=== PATIENT | female | born 1975 | race Two or more races ===

== ENCOUNTER 2020-10-09 17:13 | Outpatient (REF) | payer OTHER, SELFPAY ==
[2020-10-09 18:22] LABS: Glucose Urine UA NEG (NEG); Leukocyte Esterase Urine NEG (NEG); Nitrite Urine NEG (NEG); PH 5.5 (5.0-8.0); Specific Gravity - Urine >= 1.030 (1.005-1.025); Urine Blood 1+ (NEG); Urine Ketones NEG (NEG); Urine Protein NEG (NEG-TRACE)
[2020-10-09 18:25] LABS: Color Urine YELLOW
[2020-10-09 18:26] LABS: Appearance Urine CLEAR
[2020-10-09 18:32] LABS: Bacteria Urine 1+ /LPF; RBC Urine 0 /HPF (0); Squamous Epithelial Cell Urine TRACE /LPF; WBC Urine 0-2 /HPF (0-4)
== END 2020-10-09 17:14 | disposition home or self-care (01) ==
LOC: HO.LAB 17:13
PROVIDERS: PCP Family Medicine; Visit Provider Family Medicine
DX: M54.9 Dorsalgia, unspecified (principal)
CPT/HCPCS: 81001; 87086; 87088; 87186

== ENCOUNTER 2021-01-18 12:35 | Emergency (ER) | payer OTHER, SELFPAY ==
--- NOTE | ~2021-01-18 | US_ITS ---
EXAMINATION: US PELVIS LIMITED (BLADDER) CLINICAL INFORMATION: Gross hematuria. COMPARISON: None TECHNIQUE: Real-time imaging of the bladder. FINDINGS: BLADDER: Well distended and normal. Some echogenic debris is present in the bladder. Bilateral ureteral jets are demonstrated. Prevoid bladder volume is 170 mL. Postvoid bladder volume is 2 mL. No bladder calculi or masses were seen. The prostate appeared enlarged but was not fully evaluated. US/US bladder IMPRESSION: The bladder contains some echogenic debris. No stones or masses..
[2021-01-18 17:12] VITALS: BP 122/74; PULSE 82; RESP 20; TEMP 37.2; O2SAT 99
--- NOTE | 2021-01-18 17:58 | ED_ITS ---
HPI - Abdominal Pain General Chief Complaint: Vaginal Bleeding Stated Complaint: Vaginal Bleeding Time Seen by Provider: 01/18/21 17:40 Source: patient Mode of arrival: ambulatory Limitations: no limitations History of Present Illness HPI narrative: Patient is a 45-year-old female with no significant past medical history who presents complaining of blood in her urine x 1 day. She states her doctor has been treating her on off for the past few months for urinary tract infections but she states she does not think she actually had any infections, she tested negative for the infections with they treated her based on her symptoms. Her symptoms usually improve but they were always come back after she was done with treatment. She states her symptoms were increased frequency in urination, increased an urge to urinate. She denies any fevers, other abdominal pain or changes in her bowels. She does state that recently, she has noticed blood in her urine and this morning when she got up it was bright red blood that she could see coming out of her urethra. She states she does have hemorrhoids but she is positive it was not coming from that area. Related Data Previous Rx's Medication Instructions Recorded cefdinir 300 mg PO Q12H 7 Days #14 cap 01/18/21 Allergies Allergy/AdvReac Type Severity Reaction Status Date / Time No Known Allergies Allergy Verified 01/18/21 17:49 Review of Systems Review of Systems Yes all other systems are reviewed and are negative Physical Exam Vital Signs: Vital Signs: Last Vital Signs Temp 98.8 F 01/18/21 20:00 Pulse 67 01/18/21 20:00 Resp 18 01/18/21 20:00 BP 139/82 01/18/21 20:00 Pulse Ox 98 01/18/21 20:00 Body Mass Index 24.3 Const: General: cooperative, healthy appearing, comfortable, no acute distress and well developed Orientation/consciousness: patient oriented x3 Limitations: no limitations HENMT: Head: Yes normal to inspection Eyes: General: appearance normal, both eyes and all related structures Neck: Neck: Yes normal visual inspection and Yes full ROM Resp: Effort & Inspection: normal respiratory effort and able to speak in complete sentences Auscultation: clear to auscultation bilaterally Cardio: Rate: regular rate Rhythm: regular rhythm Heart sounds: normal S1 and S2 GI: Inspection: Yes normal to inspection Palpation (GI): Soft to palpation and Tenderness to palpation present (GI) suprapubicly (Central) Skin: General skin exam: no rashes or lesions noted Neuro: General: patient oriented x3 Extrem: General: Yes normal to inspection Course Course Course Narrative: Patient is a 45-year-old female with no significant past medical history who presents complaining of blood in her urine x 1 day. VSS, physical exam unremarkable except for TTP to suprapubic area. Her doctor, Dr. Wilson did come into the emergency department this morning to tell us about this patient, he is requesting a bladder ultrasound. Will get labs, UA and bladder ultrasound. Reevaluation(s) Reevaluation #1: Patient extremely upset that we gave her fluids to fill up her bladder to get a good picture on the ultrasound and she has to urinate but u ltrasound will not be ready for her for another 10 minutes so she has to hold her urine and it is uncomfortable. I apologized for the missed timing but stressed it is important she tried to hold her bladder so we can get a better picture. Advised if she needs to urinate, that would be fine to, we would just have to wait for her to fill of her bladder again and do the ultrasound later. Time: 19:08 Reevaluation #2: Patient just called to ultrasound Time: 19:10 MDM - Abdominal Pain Medical Records Attestation: I reviewed the patient's medical records. Lab Data Attestation: I reviewed the patient's lab results. Result diagrams: 01/18/21 18:21 01/18/21 18:21 Labs: Lab Results 01/18/21 01/18/21 01/18/21 Range/Units 18:21 18:21 19:38 WBC 8.3 (4.8-10.8) X10*3/uL RBC 4.31 (4.20-5.50) X10*6/uL Hgb 11.4 L (12.0-16.0) g/dl Hct 35.7 L (37-47) % MCV 82.8 (80-98) fL MCH 26.5 L (27.0-33.0) pg MCHC 31.9 (31.0-35.0) g/dl RDW 14.6 (11.0-16.0) % Plt Count 296 (160-400) X10*3/uL MPV 10.8 (9.4-12.3) fL Immature Gran % (Auto) 0.2 (0.0-0.4) % Neut % (Auto) 48.6 (45-73) % Lymph % (Auto) 33.1 (20-40) % [place] % (Auto) 9.5 (2-11) % Eos % (Auto) 7.9 H (0-4) % Baso % (Auto) 0.7 (0-2) % Lymph # (Auto) 2.8 (1.2-4.9) X10*3/uL [place] # (Auto) 0.8 (0.1-1.2) X10*3/uL Eos # (Auto) 0.7 H (0.0-0.4) X10*3/uL Baso # (Auto) 0.1 (0.0-0.2) X10*3/uL Abs Immat Gran (auto) 0.02 (0.00-0.03) X10*3/uL Absolute Neuts (auto) 4.0 (2.0-8.3) X10*3/uL Absolute Nucleated RBC 0.000 (0.0-0.012) X10*3/uL Nucleated RBC % (auto) 0.0 (0.0-0.2) /100WBC Sodium 142 (135-145) mmol/L Potassium 4.1 (3.3-5.1) mmol/L Chloride 110 H (96-108) mmol/L Carbon Dioxide 27 (22-29) mmol/L Anion Gap 9 L (12-20) BUN 7 L (9-16) mg/dL Creatinine 0.74 (0.5-1.4) mg/dL Estim Creat Clear Calc 95.8 Estimated GFR > 60 Random Glucose 103 (60-115) mg/dL Calcium 11.4 H (8.4-10.2) mg/dL Urine Color YELLOW Urine Appearance CLEAR Urine pH 5.5 (5.0-8.0) Ur Specific [place] >= 1.030 H (1.005-1.025) Urine Protein NEG (NEG-TRACE) MG/DL Urine Glucose (UA) NEG (NEG) MG/DL Urine Ketones NEG (NEG) MG/DL Urine Blood TRACE (NEG) Urine Nitrite NEG (NEG) Ur Leukocyte Esterase NEG (NEG) Urine RBC 1-4 (0) /HPF Urine WBC 1-4 (0-4) /HPF Ur Squamous Epith Cells TRACE /LPF Calcium Oxalate Crystal 1+ /LPF Urine Bacteria NONE /LPF Imaging Data bladder US: Attestation: I personally reviewed and interpreted this imaging study as follows: Radiologist's impression: [address] [id number] ReportSigned Patient: Elsie Norton#: [id number]: 1975Acct:[id number]/Sex: 45 / FADM Date: 01/18/21Loc: HO.EDAttending Dr: Ordering Physician: Haven Omer PA-C Date of Service: 01/18/21 Procedure(s): US bladder Accession Number(s): [id number] cc: Haven Omer PA-C~ EXAMINATION: US PELVIS LIMITED (BLADDER) CLINICAL INFORMATION: Gross hematuria. COMPARISON: None TECHNIQUE: Real-time imaging of the bladder. FINDINGS: BLADDER: Well distended and normal. Some echogenic debris is present in the bladder. Bilateral ureteral jets are demonstrated. Prevoid bladder volume is 170 mL. Postvoid bladder volume is 2 mL. No bladder calculi or masses were seen. The prostate appeared enlarged but was not fully evaluated. US/US bladder IMPRESSION: The bladder contains some echogenic debris. No stones or masses.. Dictated By:SMITH FLORES MDSigned By:<Electronically signed by SMITH FLORES MD in OV>01/18/212029 DD/ 48TD/TT: Curriculum Director: Discharge Plan Discharge Clinical Impression: UTI (urinary tract infection) Qualifiers: Urinary tract infection type: acute cystitis Hematuria presence: with hematuria Qualified Code(s): N30.01 - Acute cystitis with hematuria Patient Disposition: Home, Self-Care Instructions: Urinary Tract Infection in Women (ED) Prescriptions: New cefdinir 300 mg capsule 300 mg PO Q12H 7 Days Qty: 14 RF: 0 Stand Alone Forms: Work/School Release PMFSH Past Medical History Medical History (Updated 01/18/21 @ 20:11 by Haven Omer PA-C) No known health problems Social History Social History Alcohol intake: never Patient Tobacco Use Status: Never used Tobacco Use of substances other than those prescribed or required for medical reasons: No Advance Directives: Yes Advance Directives Information Provided: Yes Advance Directives on File: No Patient : No
[2021-01-18 18:11] VITALS: BP 127/77; PULSE 65; RESP 16; TEMP 37; O2SAT 100; BMI 24.3
[2021-01-18 18:25] LABS: MANUAL DIFF FLAG NO
[2021-01-18 18:30] LABS: Basophils Absolute Auto 0.1 X10*3/uL (0.0-0.2); Basophils Percent Auto 0.7 % (0-2); Eosinophils Absolute Auto 0.7 X10*3/uL (0.0-0.4); Eosinophils Percent Auto 7.9 % (0-4); Hematocrit 35.7 % (37-47); Hemoglobin 11.4 g/dl (12.0-16.0); Imm Gran Abs Auto 0.02 X10*3/uL (0.00-0.03); Imm Gran Pct Auto 0.2 % (0.0-0.4); Lymphocytes Absolute Auto 2.8 X10*3/uL (1.2-4.9); Lymphocytes Percent Auto 33.1 % (20-40); Mean Corpuscular HGB Conc 31.9 g/dl (31.0-35.0); Mean Corpuscular Hemoglobin 26.5 pg (27.0-33.0); Mean Corpuscular Volume 82.8 fL (80-98); Mean Platelet Volume 10.8 fL (9.4-12.3); Monocytes Absolute Auto 0.8 X10*3/uL (0.1-1.2); Monocytes Percent Auto 9.5 % (2-11); Neutrophils Percent Auto 48.6 % (45-73); Platelet Count 296 X10*3/uL (160-400); Red Blood Count 4.31 X10*6/uL (4.20-5.50); Red Cell Distribution Width 14.6 % (11.0-16.0); White Blood Count 8.3 X10*3/uL (4.8-10.8)
[2021-01-18 18:54] LABS: Anion Gap 9 (12-20); Blood Urea Nitrogen 7 mg/dL (9-16); Carbon Dioxide 27 mmol/L (22-29); Chloride 110 mmol/L (96-108); Creatinine Clr Calc Pharmacy 95.8; Estimated Glomerular Filt Rate > 60; Glucose Random 103 mg/dL (60-115); Potassium 4.1 mmol/L (3.3-5.1); Sodium 142 mmol/L (135-145)
[2021-01-18 19:00] LABS: Calcium 11.4 mg/dL (8.4-10.2)
[2021-01-18 19:55] LABS: Glucose Urine UA NEG (NEG); Leukocyte Esterase Urine NEG (NEG); Nitrite Urine NEG (NEG); PH 5.5 (5.0-8.0); Specific Gravity - Urine >= 1.030 (1.005-1.025); Urine Blood TRACE (NEG); Urine Ketones NEG (NEG); Urine Protein NEG (NEG-TRACE)
[2021-01-18 19:58] LABS: Appearance Urine CLEAR; Color Urine YELLOW
[2021-01-18 20:00] VITALS: BP 139/82; PULSE 67; RESP 18; TEMP 37.1; O2SAT 98
[2021-01-18 20:24] LABS: Squamous Epithelial Cell Urine TRACE /LPF
[2021-01-18 20:25] LABS: Calcium Oxalate Crystals Urine 1+ /LPF
== END 2021-01-18 20:47 | disposition home or self-care (01) ==
PROVIDERS: Physician Assistant; Emergency Provider Emergency Medicine; PCP Family Medicine
DX: N30.01 Acute cystitis with hematuria (principal)
CPT/HCPCS: 36415; 76857; 80048; 81001; 85025; 99284

== ENCOUNTER → 2021-02-19 15:11 | Outpatient (BNVA) | payer OTHER, SELFPAY | PROVIDERS: PCP Family Medicine | DX: N30.01 Acute cystitis with hematuria (principal) | CPT/HCPCS: 99202 ==

== ENCOUNTER 2021-02-23 09:01 | Outpatient (REF) | payer OTHER, SELFPAY ==
[2021-02-23 09:36] LABS: MANUAL DIFF FLAG NO
[2021-02-23 09:42] LABS: Basophils Percent Auto 0.6 % (0-2); Eosinophils Absolute Auto 0.4 X10*3/uL (0.0-0.4); Hematocrit 35.1 % (37-47); Hemoglobin 10.9 g/dl (12.0-16.0); Imm Gran Abs Auto 0.02 X10*3/uL (0.00-0.03); Imm Gran Pct Auto 0.3 % (0.0-0.4); Lymphocytes Absolute Auto 2.2 X10*3/uL (1.2-4.9); Lymphocytes Percent Auto 33.5 % (20-40); Mean Corpuscular HGB Conc 31.1 g/dl (31.0-35.0); Mean Corpuscular Hemoglobin 25.6 pg (27.0-33.0); Mean Corpuscular Volume 82.4 fL (80-98); Monocytes Absolute Auto 0.6 X10*3/uL (0.1-1.2); Neutrophils Absolute Auto 3.3 X10*3/uL (2.0-8.3); Neutrophils Percent Auto 50.6 % (45-73); Platelet Count 349 X10*3/uL (160-400); Red Blood Count 4.26 X10*6/uL (4.20-5.50); Red Cell Distribution Width 13.9 % (11.0-16.0); White Blood Count 6.5 X10*3/uL (4.8-10.8)
[2021-02-23 10:25] LABS: T4 Thyroxine 5.7 ug/dL (4.5-12.0); Thyroid Stimulating Hormone 0.44 uIU/mL (0.32-4.0)
[2021-02-23 10:32] LABS: Calcium 11.1 mg/dL (8.4-10.2); Iron 17 mcg/dL (30-160); Percent Iron Saturation 4 % (15-50); Total Iron Binding Capacity 469 mcg/dL (228-428); Unsaturated Iron Binding 452 ug/dL
== END 2021-02-23 09:02 | disposition home or self-care (01) ==
LOC: HO.LAB 09:01
PROVIDERS: PCP Family Medicine; Visit Provider Family Medicine
DX: E04.9 Nontoxic goiter, unspecified (principal); D50.9 Iron deficiency anemia, unspecified; E83.52 Hypercalcemia
CPT/HCPCS: 36415; 82310; 83540; 84436; 84443; 85025

== ENCOUNTER → 2021-03-07 11:12 | Outpatient (BNVA) | payer OTHER, SELFPAY | PROVIDERS: PCP Family Medicine ==

== ENCOUNTER 2021-03-21 16:44 | Outpatient (REF) | payer OTHER, SELFPAY ==
--- NOTE | ~2021-03-21 | US_ITS ---
EXAMINATION: US RETROPERITONEAL LIMITED (RENAL ONLY) CLINICAL INFORMATION: Hematuria, unspecified. COMPARISON: Ultrasound bladder 01/18/2021. Ultrasound abdomen 05/05/2014. TECHNIQUE: Real-time imaging of the kidneys. FINDINGS: RIGHT KIDNEY: 11.8 x 5.2 x 5.4 cm (SAG x AP x TRV). The kidney is normal in size, contour, and echogenicity. Renal cortical thickness is normal. There are 2 echogenic densities with twinkle artifact suggestive of stones 3 and 4 mm in the midpole. No focal parenchymal lesions or hydronephrosis. LEFT KIDNEY: 11.5 x 5.7 x 5.0 cm (SAG x AP x TRV). The kidney is normal in size, contour, and echogenicity. Renal cortical thickness is normal. There are 2 echogenic densities with twinkle artifact in the midpole measuring 5 and 6 mm suggestive of stones. No focal parenchymal lesions or hydronephrosis. US/US renal BI IMPRESSION: Bilateral renal stones.
== END 2021-03-21 16:45 | disposition home or self-care (01) ==
LOC: HO.US 16:44
DX: R31.9 Hematuria, unspecified (principal)
CPT/HCPCS: 76775

== ENCOUNTER → 2021-03-22 13:55 | Outpatient (BNVA) | payer OTHER, SELFPAY | PROVIDERS: PCP Family Medicine | DX: N20.2 Calculus of kidney with calculus of ureter (principal) | CPT/HCPCS: 81002; 99212 ==

== ENCOUNTER 2021-05-10 08:17 | Outpatient (REF) | payer OTHER, SELFPAY ==
[2021-05-10 11:58] LABS: Calcium 10.7 mg/dL (8.4-10.2)
[2021-05-13 12:01] LABS: Calcium (PTHI) 11.1 mg/dL (8.6-10.2); PTHI 110 pg/mL (14-64)
== END 2021-05-10 08:18 | disposition home or self-care (01) ==
LOC: HO.HMGCLDS 08:17
PROVIDERS: PCP Family Medicine; Visit Provider Family Medicine
DX: E83.52 Hypercalcemia (principal)
CPT/HCPCS: 36415; 82310; 83970

== ENCOUNTER 2021-05-29 16:38 | Outpatient (REF) | payer OTHER, SELFPAY ==
--- NOTE | ~2021-05-29 | US_ITS ---
EXAMINATION: US RETROPERITONEAL LIMITED (RENAL ONLY) CLINICAL INFORMATION: Calculus of kidney with calculus of ureter. COMPARISON: Renal ultrasound 03/21/2021. Ultrasound of bladder 01/18/2021. TECHNIQUE: Real-time imaging of the kidneys. FINDINGS: RIGHT KIDNEY: 11.7 x 5.2 x 5.1 cm (SAG x AP x TRV). The kidney is normal in size, contour, and echogenicity. Renal cortical thickness is normal. No focal parenchymal lesions or hydronephrosis. There is an echogenic stone measuring 0.42 x 0.39 cm. LEFT KIDNEY: 12.3 x 6.0 x 4.9 cm (SAG x AP x TRV). The kidney is normal in size, contour, and echogenicity. Renal cortical thickness is normal. No calculi or focal parenchymal lesions. No hydronephrosis. US/US renal BI IMPRESSION: Non obstructive echogenic stone in the upper pole right kidney without caliectasis. There is no hydronephrosis. Unremarkable left kidney.
== END 2021-05-29 16:39 | disposition home or self-care (01) ==
LOC: HO.US 16:38
PROVIDERS: PCP Family Medicine
DX: N20.2 Calculus of kidney with calculus of ureter (principal)
CPT/HCPCS: 76775

== ENCOUNTER 2021-08-12 11:58 | Outpatient (REF) | payer OTHER, SELFPAY ==
[2021-08-12 12:27] LABS: MANUAL DIFF FLAG NO
[2021-08-12 12:49] LABS: Basophils Absolute Auto 0.1 X10*3/uL (0.0-0.2); Basophils Percent Auto 0.6 % (0-2); Eosinophils Absolute Auto 0.5 X10*3/uL (0.0-0.4); Eosinophils Percent Auto 5.6 % (0-4); Hematocrit 38.3 % (37.0-47.0); Imm Gran Abs Auto 0.03 X10*3/uL (0.00-0.03); Imm Gran Pct Auto 0.3 % (0.0-0.4); Lymphocytes Absolute Auto 1.8 X10*3/uL (1.2-4.9); Lymphocytes Percent Auto 18.3 % (20-40); Mean Corpuscular HGB Conc 31.3 g/dl (31.0-35.0); Mean Corpuscular Volume 82.9 fL (80.0-98.0); Mean Platelet Volume 11.2 fL (9.4-12.3); Monocytes Absolute Auto 0.7 X10*3/uL (0.1-1.2); Monocytes Percent Auto 7.6 % (2-11); Neutrophils Absolute Auto 6.5 x10*3/uL (2.0-8.3); Neutrophils Percent Auto 67.6 % (45-73); Platelet Count 366 X10*3/uL (160-400); Red Blood Count 4.62 X10*6/uL (4.20-5.50); Red Cell Distribution Width 14.2 % (11.0-16.0); White Blood Count 9.6 X10*3/uL (4.8-10.8)
[2021-08-12 13:10] LABS: Iron 48 mcg/dL (30-160); Percent Iron Saturation 9 % (15-50); Total Iron Binding Capacity 530 mcg/dL (228-428); Unsaturated Iron Binding 482 ug/dL
== END 2021-08-12 11:59 | disposition home or self-care (01) ==
LOC: HO.LAB 11:58
PROVIDERS: PCP Family Medicine; Visit Provider Family Medicine
DX: D50.9 Iron deficiency anemia, unspecified (principal)
CPT/HCPCS: 36415; 83540; 85025

== ENCOUNTER 2021-09-23 16:00 | Inpatient (IN) | payer OTHER, SELFPAY ==
--- NOTE | ~2021-09-23 | CT_ITS ---
EXAMINATION: CT ABDOMEN AND PELVIS WITH CONTRAST CLINICAL INFORMATION: Sepsis, left flank pain, constipation, dysuria. COMPARISON: Ultrasound kidneys 05/29/2021. TECHNIQUE: Multidetector volumetric images were obtained from the superior aspect of the liver through the pubic symphysis following administration 85 mL of Omnipaque 350 intravenous contrast. Sagittal and coronal reformatted images were obtained on the technologist's workstation. Oral Contrast: No. This CT examination was performed using dose optimization techniques as appropriate, variously including the following: *Automated exposure control. *Adjustment of mA and/or kV according to patient size (this includes techniques or standardized protocols for targeted exams where dose is matched to indication/reason for exam; i.e. extremities or head). *Use of iterative reconstruction technique. DLP: 532 mGy-cm FINDINGS: LUNG BASES: The visualized lung bases are unremarkable. LIVER, GALLBLADDER, AND BILIARY TREE: The liver is enlarged measuring 22 cm in greatest cephalocaudad dimension. Shape and attenuation are unremarkable. No focal hepatic lesion or biliary ductal dilatation is present. The gallbladder is unremarkable with no evidence of radiopaque gallstones, gallbladder wall thickening, or obvious pericholecystic inflammatory changes. PANCREAS: Unremarkable. SPLEEN: Unremarkable. ADRENAL GLANDS: Unremarkable. KIDNEYS AND URETERS: The left kidney is grossly abnormal. It is enlarged (13.4 cm versus 11.4 cm on the right) and demonstrates a striated slightly delayed nephrogram in the mid and upper pole suggesting bacterial nephritis/pyelonephritis. There is a prominent left extrarenal pelvis with increased enhancement of the mucosa. No obstructing lesion is seen. Bilateral non-obstructing renal calculi are present with 2 seen on the left, the largest at the lower pole measuring 3 mm and 2 small punctate calcifications in the right kidney. There is thickening of the anterior pararenal fascia on the left extending to the lateral conal fascia which is probably reactive secondary to the bacterial nephritis/pyelonephritis. BLADDER: Unremarkable. GASTROINTESTINAL TRACT: The small and large bowel are unremarkable aside from some mild inflammatory change around the descending colon as it passes the inflammatory process in the left kidney. No evidence of appendicitis. ABDOMINAL WALL: No significant hernia is appreciated. LYMPH NODES: Normal. VASCULAR: Unremarkable. PELVIC VISCERA: Unremarkable. OSSEOUS STRUCTURES: Unremarkable. CT/CT abdomen pelvis w con IMPRESSION: 1. Findings in the left kidney consistent with acute unilateral multifocal bacterial nephritis. 2. Incidental note made of bilateral non-obstructing renal calculi and hepatomegaly. Fleischner guidelines were followed.
--- NOTE | ~2021-09-23 | CT_ITS ---
EXAMINATION: CT HEAD WITHOUT CONTRAST CLINICAL INFORMATION: Headache COMPARISON: Previous head CT May 2011 TECHNIQUE: Contiguous axial imaging was performed from the skull base to vertex without intravenous administration of contrast. This CT examination was performed using dose optimization techniques as appropriate, variously including the following: *Automated exposure control *Adjustment of mA and/or kV according to patient size (this includes techniques or standardized protocols for targeted exams where dose is matched to indication/reason for exam; i.e. extremities or head) *Use of iterative reconstruction technique DLP: 646 mGy-cm FINDINGS: There is no evidence of acute intracranial hemorrhage or territorial infarction. No abnormal mass effect or midline shift is seen. Ledezma to white matter differentiation is well preserved. No extra-axial fluid collections are identified. The ventricles are normal in size. There is no abnormal attenuation within the brain parenchyma. The osseous structures and soft tissues are normal. The mastoid air cells and visualized portions of the paranasal sinuses are well aerated. CT/CT head/brain wo con IMPRESSION: Unremarkable exam.
--- NOTE | ~2021-09-23 | FL_ITS ---
EXAMINATION: XR FLUOROSCOPY WITH IMAGES CLINICAL INFORMATION: Left-sided stent placement. COMPARISON: CT abdomen/pelvis dated from 09/23/2021. TECHNIQUE: Fluoroscopy performed by Ye Morris. Fluoroscopy time: 4.3 seconds DAP: 0.98 mGy Images: 1 FL/FL guidance in OR FINDINGS/IMPRESSION: Single provided fluoroscopic image demonstrated the proximal aspect of the left ureteral stent projecting to the left of the lumbar spine at an uncertain level. No definite anatomic landmarks are identified in this narrowed [id number]. Please correlate with the intraoperative report for additional details. No radiologist was present during the procedure.
[2021-09-23 16:21] VITALS: BP 87/51; PULSE 132; RESP 16; TEMP 37.7; O2SAT 100; BMI 22.2
--- NOTE | 2021-09-23 16:32 | ECG_ITS ---
Test Reason : CHEST PAIN Blood Pressure : / mmHG Vent. Rate : 100 BPM Atrial Rate : 100 BPM P-R Int : 148 ms QRS Dur : 084 ms QT Int : 310 ms P-R-T Axes : 049 055 056 degrees QTc Int : 399 ms Normal sinus rhythm Nonspecific T wave abnormality Abnormal ECG No previous ECGs available Referred By: Rc Pruitt Electronically Signed By:HILARY CHISHOLM
--- NOTE | 2021-09-23 16:35 | ECG_ITS ---
Test Reason : WEAKNESS Blood Pressure : / mmHG Vent. Rate : 112 BPM Atrial Rate : 112 BPM P-R Int : 148 ms QRS Dur : 086 ms QT Int : 310 ms P-R-T Axes : 050 048 054 degrees QTc Int : 423 ms Sinus tachycardia Otherwise normal ECG No previous ECGs available Referred By: Rc Pruitt Electronically Signed By:HILARY CHISHOLM
--- NOTE | 2021-09-23 16:40 | ED.GENADULT ---
HPI - General Adult General Chief complaint: General Medical Stated complaint: ? sepsis sent from dr office Time Seen by Provider: 09/23/21 16:33 Source: patient, family and old records reviewed Mode of arrival: ambulatory Limitations: no limitations History of Present Illness HPI narrative: 46-year-old female with a history of bilateral kidney stones, depression, anxiety, ADHD, migraines, hypercalcemia with question of hyperparathyroidism, history of anemia, GERD history of IVDA in remission who presents to the ED from her PCP's office with concern of sepsis. Patient reports a fever of 102 since yesterday along with 1 and half days of severe left-sided low back and flank pain. She reports the pain is constant and squeezing. She states it is affecting her ability to take deep breaths. She states she has had painful urination for a few days that is now numb after taking OTC AZO and 2 doses of Macrobid She also reports constipation with no real bowel movement in almost 2 weeks, only passing small amounts of hard stool. She has pain in her abdomen that comes and goes as well. She is nauseous but not vomiting. MD complaint: Fever, rule out sepsis Onset (ago): day(s) (2) Location: back and abdomen Radiation: non-radiation Severity: moderate Severity scale (1-10): 7 Quality: stabbing and aching Pain Consistency: constant Relieving factors: medication Exacerbating factors: movement Associated symptoms: fever/chills, headaches, loss of appetite, malaise, nausea/vomiting, shortness of breath and weakness Treatments prior to arrival: NSAID Related Data Home Medications Medication Instructions Recorded Confirmed bupropion HCl 100 mg tablet,12 hr 100 mg PO DAILY 02/19/21 09/23/21 sustained-release omeprazole 20 mg capsule,delayed 20 mg PO DAILY PRN 02/19/21 09/23/21 release ibuprofen 600 mg tablet 600 mg PO Q6H PRN 09/23/21 09/23/21 methylphenidate HCl 27 mg 27 mg PO DAILY 09/23/21 09/23/21 tablet,extended release 24 hr ([place]) nitrofurantoin 100 mg PO BID 09/23/21 09/23/21 monohydrate/macrocrystals 100 mg capsule Allergies Allergy/AdvReac Type Severity Reaction Status Date / Time No Known Allergies Allergy Verified 02/19/21 15:15 Review of Systems Review of Systems: Constitutional: + Fever, + Chills ENT/Mouth: No sore throat, No Rhinorrhea, No Swallowing Difficulty Eyes: No Eye Pain, No Swelling, No Redness Cardiovascular: No Chest Pain, No SOB, No Orthopnea, No Edema Respiratory: No Cough, No Sputum, No Wheezing, No dyspnea Gastrointestinal: + Nausea, No Vomiting, No Diarrhea, + abdominal Pain, No Hematochezia, No Melena Genitourinary: + Dysuria, + Urinary Frequency, No Hematuria Musculoskeletal: No joint pain, + Myalgias Skin: No Skin Lesions, No rash Neuro: + Weakness, No Numbness, No Dizziness, + Headache Psych: No Anxiety/Panic, No Depression Heme/Lymph: No Bruising, No Lymphadenopathy Endocrine: No Polyuria, No Polydipsia PMFSH Past Medical History Medical History Hematuria due to acute cystitis No known health problems Renal and ureteric calculus Social History Social History Alcohol intake: never Patient Tobacco Use Status: Never used Tobacco Advance Directives: No Advance Directives Information Provided: No Physical Exam ED Vital Signs: Vital Signs - 24 hr 09/23/21 16:21 09/23/21 18:57 09/23/21 19:20 Temperature 100 F 99.3 F Pulse Rate 132 H 106 H Respiratory Rate 16 18 Blood Pressure 87/51 L 88/47 L 90/48 L Pulse Oximetry 100 99 09/23/21 20:11 09/23/21 21:00 Temperature Pulse Rate 106 H 103 H Respiratory Rate 22 H 18 Blood Pressure 106/55 L 101/62 Pulse Oximetry 99 BMI result Body Mass Index 22.2 Appearance: Alert. Oriented X3. Appears ill. Eyes: Pupils equal, round and reactive to light. ENT: Pharynx normal. Neck: Normal inspection. Neck supple. CVS: Tachycardic, regular rate and rhythm. Pulses normal. Respiratory: No respiratory distress. Breath sounds normal, poor inspiratory effort. Abdomen: Soft, tenderness throughout the entire abdomen to moderate palpation, decreased but present +BS x4. Positive left flank tenderness and CVA tenderness. Skin: Skin hot and dry. Normal skin color. Normal skin turgor. No rashes. Extremities: No lower extremity edema. Neuro: Oriented X 3. No motor deficit. No sensory deficit. Course Course Course Narrative: 46-year-old female presents to the ER from her PCP office with fever of 102, hypotension 80/40 and tachycardia to 130. She has urinary symptoms with concern for urosepsis. She also reports constipation, left-sided flank pain. On arrival to the ED she is hypotensive 87/51 with heart rate in the 130s, appears to be sinus. She is afebrile. She appears weak and ill. Once in the treatment room her blood pressure improved to 101 systolic. There is concern for urosepsis possible pyelonephritis or infected kidney stone. Will get septic workup and CT scan for further evaluation. Sepsis bolus and IV cefepime ordered. Reevaluation(s) Reevaluation #1: 6pm - WBC 25K. Renal function is normal. Lactic 2.1. MAP >[address] with contrast. Focused sepsis exam completed. Reevaluation #2: 7pm - UA + for infection. Cefepime given. Repeat BP 88/47 with MAP 58. Sepsis bolus was already completed - 1 additional liter of NS ordered, may need to start peripheral pressors and place triple lumen for vasopressors. Will monitor response to this bolus and reassess. Patient would like to avoid central line if possible and see how BP responds to this liter. Reevaluation #3: 7:30 - BP improving with additional fluids 90/48. AAO x3, warm and well perfused. 7:50 - BP improved again during 3rd liter - 96/57 with MAP 67. 9 pm - BP 101/62 with MAP 73 after fluids done. No need for vasopressors at this time. 9:30 pm - repeat focused sepsis exam completed after all IVF complete. Remains normotensive without need for vasopressors. She is stable for admission to [facility] [place]. Pruitt TT for admission. Medical Decision Making Lab Data Result diagrams: 09/23/21 16:50 09/23/21 16:50 Labs: Lab Results 09/23/21 09/23/21 09/23/21 Range/Units 16:50 16:50 16:50 WBC 25.5 H (4.8-10.8) X10*3/uL RBC 4.17 L (4.20-5.50) X10*6/uL Hgb 10.7 L (12.0-16.0) g/dl Hct 32.8 L (37.0-47.0) % MCV 78.7 L (80.0-98.0) fL MCH 25.7 L (27.0-33.0) pg MCHC 32.6 (31.0-35.0) g/dl RDW 14.4 (11.0-16.0) % Plt Count 211 D (160-400) X10*3/uL MPV 10.6 (9.4-12.3) fL Immature Gran % (Auto) Cancelled Neut % (Auto) Cancelled Lymph % (Auto) Cancelled [place] % (Auto) Cancelled Eos % (Auto) Cancelled Baso % (Auto) Cancelled Lymph # (Auto) Cancelled [place] # (Auto) Cancelled Eos # (Auto) Cancelled Baso # (Auto) Cancelled Abs Immat Gran (auto) Cancelled Absolute Neuts (auto) Cancelled Absolute Nucleated RBC 0.000 (0.0-0.012) X10*3/uL Nucleated RBC % (auto) 0.0 (0.0-0.2) /100WBC Neutrophils % (Manual) 49 (45-73) % Band Neutrophils % 42 H (3-5) % Lymphocytes % (Manual) 2 L (20-40) % Monocytes % (Manual) 6 (2-11) % Metamyelocytes % 1 % Abs Neuts (Manual) 23.2 H (2.0-8.3) X10*3/uL Lymphocytes # (Manual) 0.5 L (1.2-4.9) X10*3/uL Monocytes # (Manual) 1.5 H (0.1-1.2) X10*3/uL Metamyelocytes # 0.3 X10*3/uL Platelet Estimate NORMAL (NORMAL) Plt Morphology Comment NORMAL RBC Morphology NORMAL PT (9.9-13.0) SEC INR (0.9-1.1) APTT (24.1-38.0) SEC Sodium 136 (135-145) mmol/L Potassium 3.8 (3.3-5.1) mmol/L Chloride 101 (96-108) mmol/L Carbon Dioxide 26 (22-29) mmol/L Anion Gap 13 (12-20) BUN 20 H (9-16) mg/dL Creatinine 1.31 (0.5-1.4) mg/dL Estim Creat Clear Calc 57.4 Estimated GFR 44 Random Glucose 103 (60-115) mg/dL Lactic Acid 2.1 H* (0.5-2.0) mmol/L Calcium 11.3 H (8.4-10.2) mg/dL Urine Color Urine Appearance Urine pH (5.0-8.0) Ur Specific [place] (1.005-1.025) Urine Protein (NEG-TRACE) MG/DL Urine Glucose (UA) (NEG) MG/DL Urine Ketones (NEG) MG/DL Urine Blood (NEG) Urine Nitrite (NEG) Ur Leukocyte Esterase (NEG) Urine RBC (0) /HPF Urine WBC (0-4) /HPF Ur Squamous Epith Cells /LPF Urine Bacteria /LPF Urine Test (NEGATIVE) COVID-19 (HAMZAH) (Negative) COVID-19 Clin Com 09/23/21 09/23/21 09/23/21 Range/Units 16:51 17:21 17:45 WBC (4.8-10.8) X10*3/uL RBC (4.20-5.50) X10*6/uL Hgb (12.0-16.0) g/dl Hct (37.0-47.0) % MCV (80.0-98.0) fL MCH (27.0-33.0) pg MCHC (31.0-35.0) g/dl RDW (11.0-16.0) % Plt Count (160-400) X10*3/uL MPV (9.4-12.3) fL Immature Gran % (Auto) Neut % (Auto) Lymph % (Auto) [place] % (Auto) Eos % (Auto) Baso % (Auto) Lymph # (Auto) [place] # (Auto) Eos # (Auto) Baso # (Auto) Abs Immat Gran (auto) Absolute Neuts (auto) Absolute Nucleated RBC (0.0-0.012) X10*3/uL Nucleated RBC % (auto) (0.0-0.2) /100WBC Neutrophils % (Manual) (45-73) % Band Neutrophils % (3-5) % Lymphocytes % (Manual) (20-40) % Monocytes % (Manual) (2-11) % Metamyelocytes % % Abs Neuts (Manual) (2.0-8.3) X10*3/uL Lymphocytes # (Manual) (1.2-4.9) X10*3/uL Monocytes # (Manual) (0.1-1.2) X10*3/uL Metamyelocytes # X10*3/uL Platelet Estimate (NORMAL) Plt Morphology Comment RBC Morphology PT 15.7 H (9.9-13.0) SEC INR 1.4 H (0.9-1.1) APTT 34.9 (24.1-38.0) SEC Sodium (135-145) mmol/L Potassium (3.3-5.1) mmol/L Chloride (96-108) mmol/L Carbon Dioxide (22-29) mmol/L Anion Gap (12-20) BUN (9-16) mg/dL Creatinine (0.5-1.4) mg/dL Estim Creat Clear Calc Estimated GFR Random Glucose (60-115) mg/dL Lactic Acid (0.5-2.0) mmol/L Calcium (8.4-10.2) mg/dL Urine Color YELLOW Urine Appearance CLEAR Urine pH 5.5 (5.0-8.0) Ur Specific [place] 1.020 (1.005-1.025) Urine Protein 2+ H (NEG-TRACE) MG/DL Urine Glucose (UA) NEG (NEG) MG/DL Urine Ketones NEG (NEG) MG/DL Urine Blood 2+ H (NEG) Urine Nitrite NEG (NEG) Ur Leukocyte Esterase 1+ H (NEG) Urine RBC 5-9 H (0) /HPF Urine WBC 15-29 H (0-4) /HPF Ur Squamous Epith Cells 2+ /LPF Urine Bacteria 2+ /LPF Urine Test (NEGATIVE) COVID-19 (HAMZAH) Negative (Negative) COVID-19 Clin Com See Note 09/23/21 Range/Units 17:45 WBC (4.8-10.8) X10*3/uL RBC (4.20-5.50) X10*6/uL Hgb (12.0-16.0) g/dl Hct (37.0-47.0) % MCV (80.0-98.0) fL MCH (27.0-33.0) pg MCHC (31.0-35.0) g/dl RDW (11.0-16.0) % Plt Count (160-400) X10*3/uL MPV (9.4-12.3) fL Immature Gran % (Auto) Neut % (Auto) Lymph % (Auto) [place] % (Auto) Eos % (Auto) Baso % (Auto) Lymph # (Auto) [place] # (Auto) Eos # (Auto) Baso # (Auto) Abs Immat Gran (auto) Absolute Neuts (auto) Absolute Nucleated RBC (0.0-0.012) X10*3/uL Nucleated RBC % (auto) (0.0-0.2) /100WBC Neutrophils % (Manual) (45-73) % Band Neutrophils % (3-5) % Lymphocytes % (Manual) (20-40) % Monocytes % (Manual) (2-11) % Metamyelocytes % % Abs Neuts (Manual) (2.0-8.3) X10*3/uL Lymphocytes # (Manual) (1.2-4.9) X10*3/uL Monocytes # (Manual) (0.1-1.2) X10*3/uL Metamyelocytes # X10*3/uL Platelet Estimate (NORMAL) Plt Morphology Comment RBC Morphology PT (9.9-13.0) SEC INR (0.9-1.1) APTT (24.1-38.0) SEC Sodium (135-145) mmol/L Potassium (3.3-5.1) mmol/L Chloride (96-108) mmol/L Carbon Dioxide (22-29) mmol/L Anion Gap (12-20) BUN (9-16) mg/dL Creatinine (0.5-1.4) mg/dL Estim Creat Clear Calc Estimated GFR Random Glucose (60-115) mg/dL Lactic Acid (0.5-2.0) mmol/L Calcium (8.4-10.2) mg/dL Urine Color Urine Appearance Urine pH (5.0-8.0) Ur Specific [place] (1.005-1.025) Urine Protein (NEG-TRACE) MG/DL Urine Glucose (UA) (NEG) MG/DL Urine Ketones (NEG) MG/DL Urine Blood (NEG) Urine Nitrite (NEG) Ur Leukocyte Esterase (NEG) Urine RBC (0) /HPF Urine WBC (0-4) /HPF Ur Squamous Epith Cells /LPF Urine Bacteria /LPF Urine Test NEGATIVE (NEGATIVE) COVID-19 (HAMZAH) (Negative) COVID-19 Clin Com ECG Data Attestation: I personally reviewed and interpreted this ECG as follows: Interpretation: normal sinus rhythm, HR 100 bpm, nonspecific T wave abnormality, normal DE interval, no ST segment elevations or depressions. Critical Care Time Critical Care Time Critical Care Time: Yes Total Critical Care Time: 55 Attestation: I have personally provided critical care time exclusive of time spent on separately billable procedures. Time includes review of lab data, radiology results, discussion with consultants, and monitoring for potential decompensation. Intervention performed as documented. Discharge Plan Discharge Clinical Impression: Severe sepsis, Acute nephritis, Constipation Patient Disposition: Admitted As Inpatient
[2021-09-23] MEDS: 0.9 % Sodium Chloride 2,109.21 ML 2109.21 ML IV (16:56)
[2021-09-23 17:03] LABS: Hematocrit 32.8 % (37.0-47.0); Hemoglobin 10.7 g/dl (12.0-16.0); Mean Corpuscular HGB Conc 32.6 g/dl (31.0-35.0); Mean Corpuscular Hemoglobin 25.7 pg (27.0-33.0); Mean Corpuscular Volume 78.7 fL (80.0-98.0); Mean Platelet Volume 10.6 fL (9.4-12.3); Platelet Count 211 X10*3/uL (160-400); Red Blood Count 4.17 X10*6/uL (4.20-5.50); Red Cell Distribution Width 14.4 % (11.0-16.0); White Blood Count 25.5 X10*3/uL (4.8-10.8)
[2021-09-23] MEDS: Acetaminophen 325 MG TABLET 975 MG PO (17:03)
[2021-09-23] MEDS: cefEPime HCl 2 GM in 0.9 % Sodium Chloride 50 ML IV (17:03)
[2021-09-23 17:15] LABS: Lactic Acid 2.1 mmol/L (0.5-2.0)
[2021-09-23 17:16] LABS: Anion Gap 13 (12-20); Blood Urea Nitrogen 20 mg/dL (9-16); Calcium 11.3 mg/dL (8.4-10.2); Carbon Dioxide 26 mmol/L (22-29); Chloride 101 mmol/L (96-108); Creatinine Clr Calc Pharmacy 57.4; Estimated Glomerular Filt Rate 44; Glucose Random 103 mg/dL (60-115); Potassium 3.8 mmol/L (3.3-5.1); Sodium 136 mmol/L (135-145)
[2021-09-23 17:25] LABS: COVID-19 Test Negative (Negative); IDNOW Serial# 55D5AD1C
[2021-09-23 17:36] LABS: INTERNATIONAL NORM RATIO 1.4 (0.9-1.1); Prothrombin Time 15.7 SEC (9.9-13.0)
[2021-09-23 17:39] LABS: Partial Thromboplastin Time 34.9 SEC (24.1-38.0)
[2021-09-23 17:44] LABS: Band Neutrophils Percent 42 % (3-5); Lymphocytes Absolute Manual 0.5 X10*3/uL (1.2-4.9); Lymphocytes Percent Manual 2 % (20-40); Metamyelocytes Absolute 0.3 X10*3/uL; Metamyelocytes Percent 1 %; Monocytes Absolute Manual 1.5 X10*3/uL (0.1-1.2); Monocytes Percent Manual 6 % (2-11); Neutrophils Absolute Manual 23.2 X10*3/uL (2.0-8.3); Neutrophils Percent Manual 49 % (45-73); Platelet Estimate NORMAL (NORMAL); Platelet Morphology Comment NORMAL; RBC Morphology NORMAL
[2021-09-23 18:02] LABS: Appearance Urine CLEAR; Color Urine YELLOW; Glucose Urine UA NEG (NEG); Leukocyte Esterase Urine 1+ (NEG); Nitrite Urine NEG (NEG); PH 5.5 (5.0-8.0); UACC Culture Trigger YES; Urine Blood 2+ (NEG); Urine Ketones NEG (NEG); Urine Protein 2+ MG/DL (NEG-TRACE)
[2021-09-23 18:03] LABS: UPreg QC Valid YES; Urine Pregnancy NEGATIVE (NEGATIVE)
[2021-09-23 18:12] LABS: Bacteria Urine 2+ /LPF; Squamous Epithelial Cell Urine 2+ /LPF
[2021-09-23 18:57] VITALS: BP 88/47; PULSE 106; RESP 18; TEMP 37.4; O2SAT 99
[2021-09-23 18:57] LABS: Reflex Lactate? Lactic Acid Added
[2021-09-23] MEDS: iohexoL 350 MG/ML 100 ML INFUS..BTL IV (18:59)
[2021-09-23] MEDS: 0.9 % Sodium Chloride 1,000 ML 999 ML IVCONT (19:05)
--- NOTE | 2021-09-23 19:14 | PHA.MEDREC ---
MED REC COMPLETE, NO ISSUES Pharmacy Consult ? Medication Reconciliation Pharmacy has completed the medication reconciliation.
[2021-09-23 19:20] VITALS: BP 90/48
[2021-09-23 20:11] VITALS: BP 106/55; PULSE 106; RESP 22; O2SAT 99
[2021-09-23] MEDS: vancomycin HCL 750 MG in 0.9 % Sodium Chloride 250 ML 265 MG IV (20:23)
[2021-09-23 21:00] VITALS: BP 101/62; PULSE 103; RESP 18
[2021-09-23] MEDS: Midodrine HCl 10 MG TABLET PO (21:16)
[2021-09-23] MEDS: Docusate Sodium 100 MG CAPSULE PO (21:39)
[2021-09-23] MEDS: ondansetron HCL 4 MG/2 ML VIAL IVPUSH (21:40)
[2021-09-23] MEDS: polyethylene glycoL 3350 17 GM POWD.PACK PO (21:41)
[2021-09-23] MEDS: Ketorolac Tromethamine 15 MG/ML VIAL IVPUSH (21:49)
[2021-09-23] MEDS: 0.9 % Sodium Chloride 1,000 ML 125 ML IVCONT (22:28)
--- NOTE | 2021-09-23 22:28 | PC.NURSE ---
Addendum entered by Teddy Mack RN 09/24/21 05:07: I assumed nursing care of this pt at 1900. The pt has been alert, oriented x 3, calm and cooperative. She makes eye contact with RnLATOYA x 4, and is able to ambulate independently and with steady gait. Respirations remain spontaneous and non-labored, room nav sat's 95% or better, RR WNL, she speaks in full sentences, no cyanosis. Since I assumed care she has had multiple complaints of R flank/lower back pain that has been relieved with both Toradol and Dilaudid (see EMar for times and doses). On my arrival at 1900 her BP was 80's/50's. ER INGRID Salgado was aware and at bedside. After the pt had received the total cumulative bolus dose of NS Midodrine PO was ordered and administered. Since that time the pts BP has gradually improved to 100-110's/60-70's. Family has remained at the bedside throughout. Pt has been taking PO meds and PO fluids without difficulty. Will continue to monitor. Original Note: I attempted to scan the maintenance NS IV fluids for this patient unsuccessfully. I tried this multiple times. I verified right dose, right patient, right time, right med
--- NOTE | 2021-09-23 22:44 | PM.IMHP ---
History of Present Illness Date of Service: 09/23/21 Chief Complaint: left flank pain 46-year-old female with a past medical history of anxiety, depression, ADHD, migraine headaches, history of ? Hyperparathyroidism, hypercalcemia, bilateral kidney stones, anemia, GERD, history of IVDA in remission presented to the hospital today with a chief complaint of left flank pain. Patient reported that she has been having back pain for the past 3 weeks; reports she has chronic back pain; initially seen her PCP will give her pain medications for her back. Her back pain was not improving subsequently it shifted to left flank followed by left posterior ribs; but over the past 2 days she has been having fevers. Patient reports that she was diagnosed with kidney stones about a year ago since then she has been having cloudy urine; also when she started to have the PAC when she initially thought it is her kidney stones. Also reports chronic hematuria. Complains of nausea. Denies any vomiting. Reports she has headaches, associated mild blurry vision; denies any neck stiffness. Today she went to her PCP, noted to have low blood pressure and subsequently sent to the ER for further evaluation. Denies any cough, sputum production, shortness of breath. Denies any lightheadedness dizziness. After presentation to the ER patient complained of chest discomfort, nonradiating, no associated nausea vomiting, no diaphoresis, sharp in nature. Review of all other systems is negative except mentioned above ER course: Per ER team patient on presentation noted to have blood pressure of 87/41; given IV fluids at 30 cc/kg; blood pressure improved; on labs noted to have mild lactic acidosis; CT of the abdomen showed multifocal bacterial nephritis and renal stones. Given vancomycin and cefepime. Admitted to the hospital for further management. [facility] Medical History Hematuria due to acute cystitis No known health problems Renal and ureteric calculus Social History Alcohol intake: never Patient Tobacco Use Status: Never used Tobacco Advance Directives: No Advance Directives Information Provided: No Meds Allergies Allergy/AdvReac Type Severity Reaction Status Date / Time No Known Allergies Allergy Verified 02/19/21 15:15 Active Medications: Current Medications Sodium Chloride (Ns) 1,000 mls @ 125 mls/hr IVCONT .Q8H DANIAL Last Admin: 09/23/21 22:28 Dose: 125 mls/hr Documented by: Pharmacy Consult (Consult Rx Perform Med Rec) 1 each MISCELLANE ONCE PRN PRN Reason: Consult order Home Medications Medication Instructions Recorded Confirmed Last Taken Type bupropion HCl 100 mg tablet,12 hr 100 mg PO DAILY 02/19/21 09/23/21 Unknown History sustained-release omeprazole 20 mg capsule,delayed 20 mg PO DAILY PRN 02/19/21 09/23/21 Unknown History release ibuprofen 600 mg tablet 600 mg PO Q6H PRN 09/23/21 09/23/21 Unknown History methylphenidate HCl 27 mg 27 mg PO DAILY 09/23/21 09/23/21 Unknown History tablet,extended release 24 hr (Concerta) nitrofurantoin 100 mg PO BID 09/23/21 09/23/21 Unknown History monohydrate/macrocrystals 100 mg capsule Physical Exam Vital Signs and Narrative: Vital Signs: Last Vital Signs Temp 99.3 F 09/23/21 18:57 Pulse 103 H 09/23/21 21:00 Resp 18 09/23/21 21:00 BP 101/62 09/23/21 21:00 Pulse Ox 99 09/23/21 20:11 BMI result Body Mass Index 22.2 Gen: Appears be in no acute distress HEENT: NCAT, Moist mucosa. Neck is supple Pulmonary: Vesicular breath sounds, fair air entry CVS: Normal S1-S2 Abdomen: BS+, Soft, Nontender; tender in the left flank and left CVA tenderness positive Extremities: Warm well perfused Neuro: Alert and awake. Grossly nonfocal; meningeal signs negative. Results Labs CBC and Chem 7: 09/23/21 16:50 09/23/21 16:50 Labs: Laboratory Results - last 24 hr 09/23/21 09/23/21 09/23/21 16:50 16:50 16:50 MCV 78.7 L MCH 25.7 L MCHC 32.6 RDW 14.4 Plt Count 211 D MPV 10.6 Immature Gran % (Auto) Cancelled Neut % (Auto) Cancelled Lymph % (Auto) Cancelled [place] % (Auto) Cancelled Eos % (Auto) Cancelled Baso % (Auto) Cancelled Lymph # (Auto) Cancelled [place] # (Auto) Cancelled Eos # (Auto) Cancelled Baso # (Auto) Cancelled Abs Immat Gran (auto) Cancelled Absolute Neuts (auto) Cancelled Absolute Nucleated RBC 0.000 Nucleated RBC % (auto) 0.0 Neutrophils % (Manual) 49 Band Neutrophils % 42 H Lymphocytes % (Manual) 2 L Monocytes % (Manual) 6 Metamyelocytes % 1 Abs Neuts (Manual) 23.2 H Lymphocytes # (Manual) 0.5 L Monocytes # (Manual) 1.5 H Metamyelocytes # 0.3 Platelet Estimate NORMAL Plt Morphology Comment NORMAL RBC Morphology NORMAL PT INR APTT Anion Gap 13 Estim Creat Clear Calc 57.4 Estimated GFR 44 Random Glucose 103 Lactic Acid 2.1 H* Calcium 11.3 H Urine Color Urine Appearance Urine pH Ur Specific [place] Urine Protein Urine Glucose (UA) Urine Ketones Urine Blood Urine Nitrite Ur Leukocyte Esterase Urine RBC Urine WBC Ur Squamous Epith Cells Urine Bacteria Urine Test COVID-19 (HAMZAH) COVID-19 [employer] Com 09/23/21 09/23/21 09/23/21 16:51 17:21 17:45 MCV MCH MCHC RDW Plt Count MPV Immature Gran % (Auto) Neut % (Auto) Lymph % (Auto) [place] % (Auto) Eos % (Auto) Baso % (Auto) Lymph # (Auto) [place] # (Auto) Eos # (Auto) Baso # (Auto) Abs Immat Gran (auto) Absolute Neuts (auto) Absolute Nucleated RBC Nucleated RBC % (auto) Neutrophils % (Manual) Band Neutrophils % Lymphocytes % (Manual) Monocytes % (Manual) Metamyelocytes % Abs Neuts (Manual) Lymphocytes # (Manual) Monocytes # (Manual) Metamyelocytes # Platelet Estimate Plt Morphology Comment RBC Morphology PT 15.7 H INR 1.4 H APTT 34.9 Anion Gap Estim Creat Clear Calc Estimated GFR Random Glucose Lactic Acid Calcium Urine Color YELLOW Urine Appearance CLEAR Urine pH 5.5 Ur Specific [place] 1.020 Urine Protein 2+ H Urine Glucose (UA) NEG Urine Ketones NEG Urine Blood 2+ H Urine Nitrite NEG Ur Leukocyte Esterase 1+ H Urine RBC 5-9 H Urine WBC 15-29 H Ur Squamous Epith Cells 2+ Urine Bacteria 2+ Urine Test COVID-19 (HAMZAH) Negative COVID-19 Clin Com See Note 09/23/21 17:45 MCV MCH MCHC RDW Plt Count MPV Immature Gran % (Auto) Neut % (Auto) Lymph % (Auto) [place] % (Auto) Eos % (Auto) Baso % (Auto) Lymph # (Auto) [place] # (Auto) Eos # (Auto) Baso # (Auto) Abs Immat Gran (auto) Absolute Neuts (auto) Absolute Nucleated RBC Nucleated RBC % (auto) Neutrophils % (Manual) Band Neutrophils % Lymphocytes % (Manual) Monocytes % (Manual) Metamyelocytes % Abs Neuts (Manual) Lymphocytes # (Manual) Monocytes # (Manual) Metamyelocytes # Platelet Estimate Plt Morphology Comment RBC Morphology PT INR APTT Anion Gap Estim Creat Clear Calc Estimated GFR Random Glucose Lactic Acid Calcium Urine Color Urine Appearance Urine pH Ur Specific [place] Urine Protein Urine Glucose (UA) Urine Ketones Urine Blood Urine Nitrite Ur Leukocyte Esterase Urine RBC Urine WBC Ur Squamous Epith Cells Urine Bacteria Urine Test NEGATIVE COVID-19 (HAMZAH) COVID-19 Clin Com Imaging Radiologist's Impressions: Impressions Abdomen/Pelvis CT 09/23/21 18:59 IMPRESSION: 1. Findings in the left kidney consistent with acute unilateral multifocal bacterial nephritis. 2. Incidental note made of bilateral non-obstructing renal calculi and hepatomegaly. Fleischner guidelines were followed. Assessment and Plan (1) Severe sepsis: Status: Acute (2) Acute nephritis: Status: Acute (3) Renal and ureteric calculus: Status: Acute (4) Hematuria due to acute cystitis: Status: Acute Plan 46-year-old female with a past medical history of anxiety, depression presented to the hospital with a chief complaint of urinary burning/hematuria/left flank pain. Noted to have left CVA tenderness on exam, severe sepsis in the setting of UTI. Admitted for further management. Severe sepsis: In the setting of UTI. Patient blood pressure on presentation noted to be 87/51. Lactate elevated to 2.1. Tachycardic. Patient received normal saline at 30 cc/kg. Blood pressure improved to low 100s systolic. Continue maintenance IV fluids. Multifocal bacterial nephritis/renal stones/hematuria: Continue patient on cefepime. Will consult ID and Urology for further recommendations Pain control Chest discomfort: Atypical in nature. EKG nonischemic. Cycle cardiac enzymes. Headaches: Patient has been taking ibuprofen for her back pain. Question NSAID related. CT head ordered. Exam nonfocal. Neurology consult. Neck is supple. No meningeal signs. History of anxiety/depression: Continue home medications GI prophylaxis: Ppi DVT prophylaxis: Subcu heparin Code status: Full code Quality Stroke Does the patient have a stroke diagnosis?: No VTE Prior VTE?: No VTE Risk Level:: Medical - moderate - high VTE Device Contraindication: Treatment Not Indicated VTE Drug Contraindication: N/A - Med Ordered
[2021-09-23 23:06] LABS: ~Lactic Acid-LAB USE ONLY 2.5 mmol/L (0.5-2.0)
[2021-09-24] VITALS (17 sets, daily range): BP systolic 93–122; BP diastolic 52–73; PULSE 88–120; RESP 14–32; TEMP 37.4–39.6; O2SAT 90–100; BMI 22.2
[2021-09-24 00:42] LABS: Troponin-I High Sensitivity < 3.5 ng/L (<3.5-17.0)
[2021-09-24 00:52] LABS: Reflex Lactate? 2 Y
[2021-09-24 02:02] LABS: ~Lactic Acid-LAB USE ONLY 1.7 mmol/L (0.5-2.0)
[2021-09-24] MEDS: cefEPime HCl 1 GM in 0.9 % Sodium Chloride 50 ML IV ×2 (02:05→09:51)
[2021-09-24] MEDS: Acetaminophen 325 MG TABLET 650 MG PO ×3 (02:06→20:08)
[2021-09-24] MEDS: HYDROmorphone HCl 0.5 MG/0.5 ML SYRINGE IVPUSH ×3 (02:21→20:56)
[2021-09-24] MEDS: 0.9 % Sodium Chloride 1,000 ML 125 ML IVCONT ×2 (06:11→14:19)
[2021-09-24 07:31] LABS: Hematocrit 29.3 % (37.0-47.0); Hemoglobin 9.1 g/dl (12.0-16.0); Mean Corpuscular HGB Conc 31.1 g/dl (31.0-35.0); Mean Corpuscular Hemoglobin 25.3 pg (27.0-33.0); Mean Corpuscular Volume 81.6 fL (80.0-98.0); Mean Platelet Volume 11.7 fL (9.4-12.3); Platelet Count 175 X10*3/uL (160-400); Red Blood Count 3.59 X10*6/uL (4.20-5.50); Red Cell Distribution Width 14.8 % (11.0-16.0)
[2021-09-24 07:53] LABS: Anion Gap 12 (12-20); Blood Urea Nitrogen 20 mg/dL (9-16); Carbon Dioxide 20 mmol/L (22-29); Chloride 110 mmol/L (96-108); Creatinine Clr Calc Pharmacy 62.1; Estimated Glomerular Filt Rate 48; Glucose Random 96 mg/dL (60-115); Potassium 4.3 mmol/L (3.3-5.1); Sodium 138 mmol/L (135-145)
[2021-09-24 07:59] LABS: Band Neutrophils Percent 36 % (3-5); Lymphocytes Absolute Manual 0.6 X10*3/uL (1.2-4.9); Lymphocytes Percent Manual 3 % (20-40); Monocytes Absolute Manual 0.4 X10*3/uL (0.1-1.2); Monocytes Percent Manual 2 % (2-11); Neutrophils Absolute Manual 18.1 X10*3/uL (2.0-8.3); Neutrophils Percent Manual 59 % (45-73)
[2021-09-24 08:02] LABS: Dohle Bodies PRESENT; RBC Morphology NORMAL; Toxic Vacuolation PRESENT
[2021-09-24 08:03] LABS: Large Platelet PRESENT; Platelet Estimate NORMAL (NORMAL); Platelet Morphology Comment NORMAL
[2021-09-24 08:09] LABS: Calcium 9.6 mg/dL (8.4-10.2)
--- NOTE | 2021-09-24 09:41 | P.CNUR_ITS ---
History of Present Illness Consult details Consult date: 09/24/21 Narrative: Iman asencio pleasant female. Presented to hospital with 2-3 day history of left-sided flank pain associated fever WBC 25.5, elevated creatinine CT scan with left pyelonephritis G stain with Gram-negative rods in blood, urine growth negative Appears that there may be a component of obstruction to the pyelonephritis given inconsistency between blood and urine microbiology Discussed with patient and recommend left stent placement Review of Systems Constitutional: Constitutional: Reports as per HPI and Reports no additional constitutional complaints Cardiovascular: Cardiovascular: Reports as per HPI and Reports no additional cardiovascular complaints Respiratory: Respiratory: Reports as per HPI and Reports no additional respiratory complaints Gastrointestinal: Gastrointestinal: Reports as per HPI and Reports no additional gastrointestinal complaints Genitourinary: Genitourinary: Reports as per HPI Musculoskeletal: Musculoskeletal: Reports no additional musculoskeletal complaints and Reports as per HPI Neurologic: Reports system reviewed and no additional complaints, except as documented and Reports as per HPI PMF Past Medical History Medical History Hematuria due to acute cystitis No known health problems Renal and ureteric calculus Social History Social History Alcohol intake: current Patient Tobacco Use Status: Never used Tobacco Use of substances other than those prescribed or required for medical reasons: No Advance Directives: No Advance Directives Information Provided: No Meds Allergies Allergy/AdvReac Type Severity Reaction Status Date / Time No Known Allergies Allergy Verified 02/19/21 15:15 Active Medications: Current Medications Acetaminophen (Acetaminophen 325 Mg Tablet) 650 mg PO Q6H PRN PRN Reason: Pain, Mild (Pain Scale 1-3) Last Admin: 09/24/21 02:06 Dose: 650 mg Documented by: Bupropion HCl (Bupropion Hcl 100 Mg Tablet) 100 mg PO DAILY [facility] Heparin Sodium (Porcine) (Heparin Sodium,Porcine 5,000 Unit/Ml Vial) 5,000 unit SUBCUT Q8H DANIAL Last Admin: 09/24/21 00:27 Dose: Not Given Documented by: Hydromorphone HCl (Hydromorphone Hcl 0.5 Mg/0.5 Ml Syringe) 0.5 mg IVPUSH Q4H PRN; Protocol PRN Reason: Pain, Severe (Pain Scale 7-10) Last Admin: 09/24/21 02:21 Dose: 0.5 mg Documented by: Sodium Chloride (Ns) 1,000 mls @ 125 mls/hr IVCONT .Q8H [facility] Last Admin: 09/24/21 06:11 Dose: 125 mls/hr Documented by: Sodium Chloride (Ns) 1,000 mls @ 100 mls/hr IVCONT .Q10H [facility] Last Admin: 09/23/21 23:15 Dose: Not Given Documented by: Cefepime HCl 1 gm/ Sodium (Chloride) 50 mls @ 100 mls/hr IV Q8H [facility] Last Infusion: 09/24/21 04:08 Dose: Infused Documented by: Melatonin (Melatonin 3 Mg Tablet) 6 mg PO BEDTIME PRN PRN Reason: Insomnia Non-Formulary Medication (Methylphenidate Hcl [Concerta]) 27 mg PO DAILY [facility] Omeprazole (Omeprazole 20 Mg Capsule.Dr) 20 mg PO DAILY PRN PRN Reason: Dyspepsia Pharmacy Consult (Consult Rx Perform Med Rec) 1 each MISCELLANE ONCE PRN PRN Reason: Consult order Senna (Sennosides 8.6 Mg Tablet) 17.2 mg PO BEDTIME PRN PRN Reason: Constipation Sodium Chloride (0.9 % Sodium Chloride Flush 3 Ml Syringe) 3 ml IVFLUSH QSHIFT [facility] Last Admin: 09/24/21 09:07 Dose: Not Given Documented by: Home Medications Medication Instructions Recorded Confirmed Last Taken Type bupropion HCl 100 mg tablet,12 hr 100 mg PO DAILY 02/19/21 09/23/21 Unknown His tory sustained-release omeprazole 20 mg capsule,delayed 20 mg PO DAILY PRN 02/19/21 09/23/21 Unknown History release ibuprofen 600 mg tablet 600 mg PO Q6H PRN 09/23/21 09/23/21 Unknown History methylphenidate HCl 27 mg 27 mg PO DAILY 09/23/21 09/23/21 Unknown History tablet,extended release 24 hr (Concerta) nitrofurantoin 100 mg PO BID 09/23/21 09/23/21 Unknown History monohydrate/macrocrystals 100 mg capsule Physical Exam Vital Signs: Vital Signs: Last Vital Signs Temp 99.9 F 09/24/21 06:31 Pulse 120 H 09/24/21 06:31 Resp 32 H 09/24/21 06:31 BP 110/63 09/24/21 06:31 Pulse Ox 98 09/24/21 06:31 BMI result Body Mass Index 22.2 Const: General: cooperative, healthy appearing, comfortable and no acute distress Orientation/consciousness: patient oriented x3 HEENT: Face and sinus: Yes normal facial exam Mouth: moist mucous membranes Neck: Neck: Yes normal visual inspection, Yes full ROM and Yes trachea midline Chest: Chest palpation & inspection: normal inspection of the chest Resp: Effort & Inspection: normal respiratory effort, able to speak in complete sentences and no respiratory distress GI: Inspection: Yes normal to inspection Back/Spine/Pelvis: Cervical Spine: normal cervical lordosis Thoracic/Lumbar Spine: thoracic and lumbar spine normal to inspection Skin: General skin exam: no rashes or lesions noted Neuro: General: patient oriented x3, tone normal and moves all extremities Extrem: General: Yes normal to inspection and Yes capillary refill normal Results Labs Result diagrams: 09/24/21 07:12 09/24/21 07:12 Labs: Abnormal lab results 09/23/21 09/23/21 09/23/21 Range/Units 16:50 16:50 16:50 WBC 25.5 H (4.8-10.8) X10*3/uL RBC 4.17 L (4.20-5.50) X10*6/uL Hgb 10.7 L (12.0-16.0) g/dl Hct 32.8 L (37.0-47.0) % MCV 78.7 L (80.0-98.0) fL MCH 25.7 L (27.0-33.0) pg Band Neutrophils % 42 H (3-5) % Lymphocytes % (Manual) 2 L (20-40) % Abs Neuts (Manual) 23.2 H (2.0-8.3) X10*3/uL Lymphocytes # (Manual) 0.5 L (1.2-4.9) X10*3/uL Monocytes # (Manual) 1.5 H (0.1-1.2) X10*3/uL PT (9.9-13.0) SEC INR (0.9-1.1) Chloride (96-108) mmol/L Carbon Dioxide (22-29) mmol/L BUN 20 H (9-16) mg/dL Lactic Acid 2.1 H* (0.5-2.0) mmol/L Lactic Acid F/U @ 2Hr (0.5-2.0) mmol/L Calcium 11.3 H (8.4-10.2) mg/dL Urine Protein (NEG-TRACE) MG/DL Urine Blood (NEG) Ur Leukocyte Esterase (NEG) Urine RBC (0) /HPF Urine WBC (0-4) /HPF 09/23/21 09/23/21 09/23/21 Range/Units 17:21 17:45 22:49 WBC (4.8-10.8) X10*3/uL RBC (4.20-5.50) X10*6/uL Hgb (12.0-16.0) g/dl Hct (37.0-47.0) % MCV (80.0-98.0) fL MCH (27.0-33.0) pg Band Neutrophils % (3-5) % Lymphocytes % (Manual) (20-40) % Abs Neuts (Manual) (2.0-8.3) X10*3/uL Lymphocytes # (Manual) (1.2-4.9) X10*3/uL Monocytes # (Manual) (0.1-1.2) X10*3/uL PT 15.7 H (9.9-13.0) SEC INR 1.4 H (0.9-1.1) Chloride (96-108) mmol/L Carbon Dioxide (22-29) mmol/L BUN (9-16) mg/dL Lactic Acid (0.5-2.0) mmol/L Lactic Acid F/U @ 2Hr 2.5 H* (0.5-2.0) mmol/L Calcium (8.4-10.2) mg/dL Urine Protein 2+ H (NEG-TRACE) MG/DL Urine Blood 2+ H (NEG) Ur Leukocyte Esterase 1+ H (NEG) Urine RBC 5-9 H (0) /HPF Urine WBC 15-29 H (0-4) /HPF 09/24/21 09/24/21 Range/Units 07:12 07:12 WBC 19.0 H (4.8-10.8) X10*3/uL RBC 3.59 L (4.20-5.50) X10*6/uL Hgb 9.1 L (12.0-16.0) g/dl Hct 29.3 L (37.0-47.0) % MCV (80.0-98.0) fL MCH 25.3 L (27.0-33.0) pg Band Neutrophils % 36 H (3-5) % Lymphocytes % (Manual) 3 L (20-40) % Abs Neuts (Manual) 18.1 H (2.0-8.3) X10*3/uL Lymphocytes # (Manual) 0.6 L (1.2-4.9) X10*3/uL Monocytes # (Manual) (0.1-1.2) X10*3/uL PT (9.9-13.0) SEC INR (0.9-1.1) Chloride 110 H (96-108) mmol/L Carbon Dioxide 20 L (22-29) mmol/L BUN 20 H (9-16) mg/dL Lactic Acid (0.5-2.0) mmol/L Lactic Acid F/U @ 2Hr (0.5-2.0) mmol/L Calcium (8.4-10.2) mg/dL Urine Protein (NEG-TRACE) MG/DL Urine Blood (NEG) Ur Leukocyte Esterase (NEG) Urine RBC (0) /HPF Urine WBC (0-4) /HPF Short CBC 09/23/21 09/24/21 Range/Units 16:50 07:12 WBC 25.5 H 19.0 H (4.8-10.8) X10*3/uL Hgb 10.7 L 9.1 L (12.0-16.0) g/dl Hct 32.8 L 29.3 L (37.0-47.0) % Plt Count 211 D 175 (160-400) X10*3/uL BMP 09/23/21 09/24/21 16:50 07:12 Sodium 136 138 Potassium 3.8 4.3 Chloride 101 110 H Carbon Dioxide 26 20 L BUN 20 H 20 H Creatinine 1.31 1.21 Calcium 11.3 H 9.6 D Urine 09/23/21 09/23/21 Range/Units 17:45 17:45 Urine Color YELLOW Urine Appearance CLEAR Urine pH 5.5 (5.0-8.0) Ur Specific [place] 1.020 (1.005-1.025) Urine Protein 2+ H (NEG-TRACE) MG/DL Urine Glucose (UA) NEG (NEG) MG/DL Urine Test NEGATIVE (NEGATIVE) All other labs normal. Assessment and Plan (1) Acute nephritis: Status: Acute Plan Risks, benefits and alternatives to therapy were discussed. These include but are not limited to infection, bleeding, damage to local organs and tissues, need for further interventions. Anesthetic risks regarding cardiac arrhythmia, blood clots, and potential mortality were discussed. The patient understands the typical recovery time and the outpatient nature of the procedure. After consideration of these risks the patient gives full info rmed consent and they wish to move ahead with the procedure. Plan for cystoscopy, left retrograde, left stent placement for drainage Procedures Date of Service Date of Service: 09/24/21
--- NOTE | 2021-09-24 09:41 | HO.PM.IMPN ---
Subjective Subjective Date of Service: 09/24/21 Interval History: CC: f/u on sepsis interval history: still with fever, chills, and left flank pain Review of Systems chills, left flank pain Physical Exam Vital Signs: Vital Signs: Last Vital Signs Temp 99.9 F 09/24/21 06:31 Pulse 120 H 09/24/21 06:31 Resp 32 H 09/24/21 06:31 BP 110/63 09/24/21 06:31 Pulse Ox 98 09/24/21 06:31 BMI result Body Mass Index 22.2 Const: Other: General: AO X 3, no acute distress Resp: CTA bilateral CVS: S1,S2,RRR GI: +BS, NT, no distention : left flank tenderness Skin: No rash Neuro: motor grossly intact Psych: appropriate affect Objective Data Active Medications Acetaminophen (Acetaminophen 325 Mg Tablet) 650 mg PO Q6H PRN PRN Reason: Pain, Mild (Pain Scale 1-3) Last Admin: 09/24/21 02:06 Dose: 650 mg Documented by: CHAO Bupropion HCl (Bupropion Hcl 100 Mg Tablet) 100 mg PO DAILY [facility] Heparin Sodium (Porcine) (Heparin Sodium,Porcine 5,000 Unit/Ml Vial) 5,000 unit SUBCUT Q8H [facility] Last Admin: 09/24/21 00:27 Dose: Not Given Documented by: CHAO Non-Admin Reason: Duplicate Order Hydromorphone HCl (Hydromorphone Hcl 0.5 Mg/0.5 Ml Syringe) 0.5 mg IVPUSH Q4H PRN; Protocol PRN Reason: Pain, Severe (Pain Scale 7-10) Last Admin: 09/24/21 02:21 Dose: 0.5 mg Documented by: CHAO Sodium Chloride (Ns) 1,000 mls @ 125 mls/hr IVCONT .Q8H [facility] Last Admin: 09/24/21 06:11 Dose: 125 mls/hr Documented by: CHAO Sodium Chloride (Ns) 1,000 mls @ 100 mls/hr IVCONT .Q10H [facility] Last Admin: 09/23/21 23:15 Dose: Not Given Documented by: CHAO Non-Admin Reason: Duplicate Order Cefepime HCl 1 gm/ Sodium (Chloride) 50 mls @ 100 mls/hr IV Q8H [facility] Last Infusion: 09/24/21 04:08 Dose: 0 mls/hr Documented by: CHAO Melatonin (Melatonin 3 Mg Tablet) 6 mg PO BEDTIME PRN PRN Reason: Insomnia Non-Formulary Medication (Methylphenidate Hcl [Concerta]) 27 mg PO DAILY [facility] Omeprazole (Omeprazole 20 Mg Capsule.Dr) 20 mg PO DAILY PRN PRN Reason: Dyspepsia Pharmacy Consult (Consult Rx Perform Med Rec) 1 each MISCELLANE ONCE PRN PRN Reason: Consult order Senna (Sennosides 8.6 Mg Tablet) 17.2 mg PO BEDTIME PRN PRN Reason: Constipation Sodium Chloride (0.9 % Sodium Chloride Flush 3 Ml Syringe) 3 ml IVFLUSH QSHIFT [facility] Last Admin: 09/24/21 09:07 Dose: Not Given Documented by: JANA Non-Admin Reason: IV Running Labs CBC & Chem 7: 09/24/21 07:12 09/24/21 07:12 Labs: Laboratory Results - last 24 hr 09/23/21 09/23/21 09/23/21 16:50 16:50 16:50 MCV 78.7 L MCH 25.7 L MCHC 32.6 RDW 14.4 Plt Count 211 D MPV 10.6 Immature Gran % (Auto) Cancelled Neut % (Auto) Cancelled Lymph % (Auto) Cancelled Turner % (Auto) Cancelled Eos % (Auto) Cancelled Baso % (Auto) Cancelled Lymph # (Auto) Cancelled Turner # (Auto) Cancelled Eos # (Auto) Cancelled Baso # (Auto) Cancelled Abs Immat Gran (auto) Cancelled Absolute Neuts (auto) Cancelled Absolute Nucleated RBC 0.000 Nucleated RBC % (auto) 0.0 Neutrophils % (Manual) 49 Band Neutrophils % 42 H Lymphocytes % (Manual) 2 L Monocytes % (Manual) 6 Metamyelocytes % 1 Abs Neuts (Manual) 23.2 H Lymphocytes # (Manual) 0.5 L Monocytes # (Manual) 1.5 H Metamyelocytes # 0.3 Toxic Vacuolation Dohle Bodies Platelet Estimate NORMAL Large Platelets Plt Morphology Comment NORMAL RBC Morphology NORMAL PT INR APTT Anion Gap 13 Estim Creat Clear Calc 57.4 Estimated GFR 44 Random Glucose 103 Lactic Acid 2.1 H* Lactic Acid F/U @ 2Hr Lactic Acid F/U @ 4Hr Calcium 11.3 H Troponin I High Sens Urine Color Urine Appearance Urine pH Ur Specific [place] Urine Protein Urine Glucose (UA) Urine Ketones Urine Blood Urine Nitrite Ur Leukocyte Esterase Urine RBC Urine WBC Ur Squamous Epith Cells Urine Bacteria Urine Test COVID-19 (HAMZAH) COVID-19 Clin Com 09/23/21 09/23/21 09/23/21 16:51 17:21 17:45 MCV MCH MCHC RDW Plt Count MPV Immature Gran % (Auto) Neut % (Auto) Lymph % (Auto) Turner % (Auto) Eos % (Auto) Baso % (Auto) Lymph # (Auto) Turner # (Auto) Eos # (Auto) Baso # (Auto) Abs Immat Gran (auto) Absolute Neuts (auto) Absolute Nucleated RBC Nucleated RBC % (auto) Neutrophils % (Manual) Band Neutrophils % Lymphocytes % (Manual) Monocytes % (Manual) Metamyelocytes % Abs Neuts (Manual) Lymphocytes # (Manual) Monocytes # (Manual) Metamyelocytes # Toxic Vacuolation Dohle Bodies Platelet Estimate Large Platelets Plt Morphology Comment RBC Morphology PT 15.7 H INR 1.4 H APTT 34.9 Anion Gap Estim Creat Clear Calc Estimated GFR Random Glucose Lactic Acid Lactic Acid F/U @ 2Hr Lactic Acid F/U @ 4Hr Calcium Troponin I High Sens Urine Color YELLOW Urine Appearance CLEAR Urine pH 5.5 Ur Specific [place] 1.020 Urine Protein 2+ H Urine Glucose (UA) NEG Urine Ketones NEG Urine Blood 2+ H Urine Nitrite NEG Ur Leukocyte Esterase 1+ H Urine RBC 5-9 H Urine WBC 15-29 H Ur Squamous Epith Cells 2+ Urine Bacteria 2+ Urine Test COVID-19 (HAMZAH) Negative COVID-19 Clin Com See Note 09/23/21 09/23/21 09/23/21 17:45 22:49 23:32 MCV MCH MCHC RDW Plt Count MPV Immature Gran % (Auto) Neut % (Auto) Lymph % (Auto) Turner % (Auto) Eos % (Auto) Baso % (Auto) Lymph # (Auto) Turner # (Auto) Eos # (Auto) Baso # (Auto) Abs Immat Gran (auto) Absolute Neuts (auto) Absolute Nucleated RBC Nucleated RBC % (auto) Neutrophils % (Manual) Band Neutrophils % Lymphocytes % (Manual) Monocytes % (Manual) Metamyelocytes % Abs Neuts (Manual) Lymphocytes # (Manual) Monocytes # (Manual) Metamyelocytes # Toxic Vacuolation Dohle Bodies Platelet Estimate Large Platelets Plt Morphology Comment RBC Morphology PT INR APTT Anion Gap Estim Creat Clear Calc Estimated GFR Random Glucose Lactic Acid Lactic Acid F/U @ 2Hr 2.5 H* Lactic Acid F/U @ 4Hr Calcium Troponin I High Sens < 3.5 Urine Color Urine Appearance Urine pH Ur Specific [place] Urine Protein Urine Glucose (UA) Urine Ketones Urine Blood Urine Nitrite Ur Leukocyte Esterase Urine RBC Urine WBC Ur Squamous Epith Cells Urine Bacteria Urine Test NEGATIVE COVID-19 (HAMZAH) COVID-[employer] 09/24/21 09/24/21 09/24/21 01:48 07:12 07:12 MCV 81.6 MCH 25.3 L MCHC 31.1 RDW 14.8 Plt Count 175 MPV 11.7 Immature Gran % (Auto) Cancelled Neut % (Auto) Cancelled Lymph % (Auto) Cancelled Turner % (Auto) Cancelled Eos % (Auto) Cancelled Baso % (Auto) Cancelled Lymph # (Auto) Cancelled Turner # (Auto) Cancelled Eos # (Auto) Cancelled Baso # (Auto) Cancelled Abs Immat Gran (auto) Cancelled Absolute Neuts (auto) Cancelled Absolute Nucleated RBC 0.000 Nucleated RBC % (auto) 0.0 Neutrophils % (Manual) 59 Band Neutrophils % 36 H Lymphocytes % (Manual) 3 L Monocytes % (Manual) 2 Metamyelocytes % Abs Neuts (Manual) 18.1 H Lymphocytes # (Manual) 0.6 L Monocytes # (Manual) 0.4 Metamyelocytes # Toxic Vacuolation PRESENT Dohle Bodies PRESENT Platelet Estimate NORMAL Large Platelets PRESENT Plt Morphology Comment NORMAL RBC Morphology NORMAL PT INR APTT Anion Gap 12 Estim Creat Clear Calc 62.1 Estimated GFR 48 Random Glucose 96 Lactic Acid Lactic Acid F/U @ 2Hr Lactic Acid F/U @ 4Hr 1.7 Calcium 9.6 D Troponin I High Sens Urine Color Urine Appearance Urine pH Ur Specific [place] Urine Protein Urine Glucose (UA) Urine Ketones Urine Blood Urine Nitrite Ur Leukocyte Esterase Urine RBC Urine WBC Ur Squamous Epith Cells Urine Bacteria Urine Test COVID-19 (HAMZAH) COVID-19 [employer] Com Microbiology Microbiology Results: Microbiology 09/23/21 16:50 Blood Culture - Preliminary Blood - Venous Prelim: GNR Gram Stain only 09/23/21 18:06 Urine Culture - Preliminary Urine clean catch - Urine lockett top No growth to date. Assessment and Plan (1) Severe sepsis: Status: Acute (2) Acute nephritis: Status: Acute (3) Constipation: Status: Acute (4) Hematuria due to acute cystitis: Status: Acute Plan 6-year-old female with a past medical history of anxiety, depression presented to the hospital with a chief complaint of urinary burning/hematuria/left flank pain.? Noted to have left CVA tenderness on exam, severe sepsis in the setting of UTI.? Admitted for further management. Severe sepsis due to acute pyelonephritis, sepsis persists -hematuria/stones -Continue Cefepime -CT showed no obstructive stone, -Urology consult in light of hematuria. Chest discomfort: Atypical in nature.? EKG nonischemic.? Cycle cardiac enzymes. Headaches:? Patient has been taking ibuprofen for her back pain.? Question NSAID related.? Negativ head CT.? Exam nonfocal.? Neurology consult.? Neck is supple.? No meningeal signs. History of anxiety/depression: Continue home medications Quality Stroke Does the patient have a stroke diagnosis?: No VTE Prior VTE?: No VTE Risk Level:: Medical - moderate - high VTE Device Contraindication: Treatment Not Indicated VTE Drug Contraindication: N/A - Med Ordered
--- NOTE | 2021-09-24 09:46 | PC.NURSE ---
Pt is A&Ox4, pain 7.10 at this time. Ambulates w/steady gait. Good PO intake. NSR on monitor, VSS. Plan for admission with antibiotics. Call cheng within reach. will continue to monitor.
[2021-09-24] MEDS: Heparin Sodium,Porcine 5,000 UNIT/ML VIAL 5000 UNIT SUBCUT (09:51)
[2021-09-24] MEDS: buPROPion HCL 100 MG TABLET PO (09:52)
--- NOTE | 2021-09-24 12:49 | MHC.CM.PN ---
Attempted to meet with patient in regards to discharge planning. Patient currently sleeping. Patient's fiance Fantasma is bedside and provided information. Patient lives with Fantasma, ambulates independently and had no services prior to coming to the hospital. No services anticipated to be needed because patient is not homebound. PCP verified. Patient received 3 Pfizer vaccines. No HCP on file. Fantasma will transport patient home when medically stable. Continue to monitor for d/c needs.
--- NOTE | 2021-09-24 13:47 | P.CNID_ITS ---
History of Present Illness Data of Consult Service Date: 09/24/21 Requesting physician: Jose Antonio Nicolas Primary Care Provider: Syed Wilson MD HPI Reason for consult: sepsis She presents to hospital with one and a half days left sided flank pain as well as fever and chilla. She has been taking Urospas and two doses of Macrobid. She has no nausea or vomiting She has not had any recent UTI. Review of Systems Review of Systems: Yes all other systems are reviewed and are negative [facility] Past Medical History Medical History Hematuria due to acute cystitis No known health problems Renal and ureteric calculus Family History Family history: reviewed and not pertinent Social History Social History Alcohol intake: current Patient Tobacco Use Status: Never used Tobacco Use of substances other than those prescribed or required for medical reasons: No Advance Directives: No Advance Directives Information Provided: No service: No Current occupational status: unemployed Meds Allergies Allergy/AdvReac Type Severity Reaction Status Date / Time No Known Allergies Allergy Verified 02/19/21 15:15 Active Medications: Current Medications Acetaminophen (Acetaminophen 325 Mg Tablet) 650 mg PO Q6H PRN PRN Reason: Pain, Mild (Pain Scale 1-3) Last Admin: 09/24/21 02:06 Dose: 650 mg Documented by: Bupropion HCl (Bupropion Hcl 100 Mg Tablet) 100 mg PO DAILY [facility] Last Admin: 09/24/21 09:52 Dose: 100 mg Documented by: Heparin Sodium (Porcine) (Heparin Sodium,Porcine 5,000 Unit/Ml Vial) 5,000 unit SUBCUT Q8H [facility] Last Admin: 09/24/21 09:51 Dose: 5,000 unit Documented by: Hydromorphone HCl (Hydromorphone Hcl 0.5 Mg/0.5 Ml Syringe) 0.5 mg IVPUSH Q4H PRN; Protocol PRN Reason: Pain, Severe (Pain Scale 7-10) Last Admin: 09/24/21 09:51 Dose: 0.5 mg Documented by: Sodium Chloride (Ns) 1,000 mls @ 125 mls/hr IVCONT .Q8H [facility] Last Admin: 09/24/21 06:11 Dose: 125 mls/hr Documented by: Sodium Chloride (Ns) 1,000 mls @ 100 mls/hr IVCONT .Q10H [facility] Last Admin: 09/24/21 09:52 Dose: Not Given Documented by: Melatonin (Melatonin 3 Mg Tablet) 6 mg PO BEDTIME PRN PRN Reason: Insomnia Non-Formulary Medication (Methylphenidate Hcl [Concerta]) 27 mg PO DAILY [facility] Omeprazole (Omeprazole 20 Mg Capsule.Dr) 20 mg PO DAILY PRN PRN Reason: Dyspepsia Pharmacy Consult (Consult Rx Perform Med Rec) 1 each MISCELLANE ONCE PRN PRN Reason: Consult order Senna (Sennosides 8.6 Mg Tablet) 17.2 mg PO BEDTIME PRN PRN Reason: Constipation Sodium Chloride (0.9 % Sodium Chloride Flush 3 Ml Syringe) 3 ml IVFLUSH QSHIFT [facility] Last Admin: 09/24/21 09:07 Dose: Not Given Documented by: Home Medications Medication Instructions Recorded Confirmed Last Taken Type bupropion HCl 100 mg tablet,12 hr 100 mg PO DAILY 02/19/21 09/23/21 Unknown History sustained-release omeprazole 20 mg capsule,delayed 20 mg PO DAILY PRN 02/19/21 09/23/21 Unknown History release ibuprofen 600 mg tablet 600 mg PO Q6H PRN 09/23/21 09/23/21 Unknown History methylphenidate HCl 27 mg 27 mg PO DAILY 09/23/21 09/23/21 Unknown History tablet,extended release 24 hr (Concerta) nitrofurantoin 100 mg PO BID 09/23/21 09/23/21 Unknown History monohydrate/macrocrystals 100 mg capsule Physical Exam Vital Signs: Vital Signs: Last Vital Signs Temp 99.9 F 09/24/21 06:31 Pulse 120 H 09/24/21 06:31 Resp 32 H 09/24/21 06:31 BP 110/63 09/24/21 06:31 Pulse Ox 98 09/24/21 06:31 BMI result Body Mass Index 22.2 Const: General: cooperative HEENT: Head: Yes normal to inspection Mouth: Normal oral and palatal mucosa present Resp: Effort & Inspection: normal respiratory effort Cardio: Rate: regular rate Rhythm: regular rhythm GI: Palpation (GI): Soft to palpation and Tenderness to palpation present (GI) (left flank CVA tenderness) Skin: General skin exam: no rashes or lesions noted Results Labs CBC & Chem 7: 09/24/21 07:12 09/24/21 07:12 Labs: Short CBC 09/23/21 09/24/21 Range/Units 16:50 07:12 WBC 25.5 H 19.0 H (4.8-10.8) X10*3/uL Hgb 10.7 L 9.1 L (12.0-16.0) g/dl Hct 32.8 L 29.3 L (37.0-47.0) % Plt Count 211 D 175 (160-400) X10*3/uL BMP 09/23/21 09/24/21 16:50 07:12 Sodium 136 138 Potassium 3.8 4.3 Chloride 101 110 H Carbon Dioxide 26 20 L BUN 20 H 20 H Creatinine 1.31 1.21 Calcium 11.3 H 9.6 D Urine 09/23/21 Range/Units 17:45 Urine Color YELLOW Urine Appearance CLEAR Urine pH 5.5 (5.0-8.0) Ur Specific [place] 1.020 (1.005-1.025) Urine Protein 2+ H (NEG-TRACE) MG/DL Urine Glucose (UA) NEG (NEG) MG/DL Microbiology Microbiology Results: Microbiology 09/23/21 16:50 Blood - Venous Blood Culture - Preliminary Prelim: GNR Gram Stain only 09/23/21 18:06 Urine clean catch - Urine lockett top Urine Culture - Preliminary No growth to date. Assessment and Plan (1) Severe sepsis: Status: Acute She has gram negative sepsis likely due to some obstruction maybe due to nephrolithiasis She is seeing Urology and probably getting stents today Plan Change Cefepime to Ceftriaxone as it is more specific for general urinary pathogens. Await final urine and blood culture and 14 day total antibiotic and would switch to optimal po agent on discharge. Urology to follow
[2021-09-24] MEDS: cefTRIAXone sodium 1 GM in 0.9 % Sodium Chloride 50 ML IV (14:44)
--- NOTE | 2021-09-24 15:31 | P.CNNE_ITS ---
History of Present Illness Data of Consult Service Date: 09/24/21 Primary Care Provider: Syed Wilson MD HPI Reason for consult: UTI with sepsis and headache 46-year-old female with a past medical history of anxiety, depression, ADHD, migraine headaches, history of ?? Hyperparathyroidism, hypercalcemia, bilateral kidney stones, anemia, GERD, history of IVDA in remission presented to the hospital today with a chief complaint of left flank pain.? Patient reported that she has been having back pain for the past 3 weeks; reports she has chronic back pain; initially seen her PCP will give her pain medications for her back.? Her back pain was not improving subsequently it shifted to left flank followed by left posterior ribs; but over the past 2 days she has been having fevers.?She was diagnosed with kidney stones about a year ago since then she has been having cloudy urine. Also reports chronic hematuria.?Complains of nausea.? Denies any vomiting.? Reports she has headaches, associated mild blurry vision; denies any neck stiffness.? Today she went to her PCP, noted to have low blood pressure and subsequently sent to the ER for further evaluation. Review of Systems Review of Systems: chills, left flank pain Yes all other systems are reviewed and are negative Constitutional: Constitutional: Reports as per HPI and Reports no additional constitutional complaints Cardiovascular: Cardiovascular: Reports as per HPI and Reports no additional cardiovascular complaints Respiratory: Respiratory: Reports as per HPI and Reports no additional respiratory complaints Gastrointestinal: Gastrointestinal: Reports as per HPI and Reports no additional gastrointestinal complaints Musculoskeletal: Musculoskeletal: Reports no additional musculoskeletal complaints and Reports as per HPI Neurologic: Reports system reviewed and no additional complaints, except as documented and Reports as per HPI [facility] Past Medical History Medical History Hematuria due to acute cystitis No known health problems Renal and ureteric calculus Family History Family history: reviewed and not pertinent Social History Social History Alcohol intake: current Patient Tobacco Use Status: Never used Tobacco Use of substances other than those prescribed or required for medical reasons: No Advance Directives: No Advance Directives Information Provided: No service: No Current occupational status: unemployed Meds Allergies Allergy/AdvReac Type Severity Reaction Status Date / Time No Known Allergies Allergy Verified 02/19/21 15:15 Active Medications: Current Medications Acetaminophen (Acetaminophen 325 Mg Tablet) 650 mg PO Q6H PRN PRN Reason: Pain, Mild (Pain Scale 1-3) Last Admin: 09/24/21 14:54 Dose: 650 mg Documented by: Bupropion HCl (Bupropion Hcl 100 Mg Tablet) 100 mg PO DAILY [facility] Last Admin: 09/24/21 09:52 Dose: 100 mg Documented by: Heparin Sodium (Porcine) (Heparin Sodium,Porcine 5,000 Unit/Ml Vial) 5,000 unit SUBCUT Q8H [facility] Last Admin: 09/24/21 15:25 Dose: Not Given Documented by: Hydromorphone HCl (Hydromorphone Hcl 0.5 Mg/0.5 Ml Syringe) 0.5 mg IVPUSH Q4H PRN; Protocol PRN Reason: Pain, Severe (Pain Scale 7-10) Last Admin: 09/24/21 09:51 Dose: 0.5 mg Documented by: Sodium Chloride (Ns) 1,000 mls @ 125 mls/hr IVCONT .Q8H [facility] Last Admin: 09/24/21 14:19 Dose: 125 mls/hr Documented by: Sodium Chloride (Ns) 1,000 mls @ 100 mls/hr IVCONT .Q10H [facility] Last Admin: 09/24/21 09:52 Dose: Not Given Documented by: Ceftriaxone Sodium 1 gm/ (Sodium Chloride) 50 mls @ 100 mls/hr IV Q24H [facility] Last Admin: 09/24/21 14:44 Dose: 100 mls/hr Documented by: Melatonin (Melatonin 3 Mg Tablet) 6 mg PO BEDTIME PRN PRN Reason: Insomnia Non-Formulary Medication (Methylphenidate Hcl [Concerta]) 27 mg PO DAILY [facility] Omeprazole (Omeprazole 20 Mg Capsule.Dr) 20 mg PO DAILY PRN PRN Reason: Dyspepsia Pharmacy Consult (Consult Rx Perform Med Rec) 1 each MISCELLANE ONCE PRN PRN Reason: Consult order Senna (Sennosides 8.6 Mg Tablet) 17.2 mg PO BEDTIME PRN PRN Reason: Constipation Sodium Chloride (0.9 % Sodium Chloride Flush 3 Ml Syringe) 3 ml IVFLUSH QSHIFT [facility] Last Admin: 09/24/21 09:07 Dose: Not Given Documented by: Home Medications Medication Instructions Recorded Confirmed Last Taken Type bupropion HCl 100 mg tablet,12 hr 100 mg PO DAILY 02/19/21 09/23/21 Unknown History sustained-release omeprazole 20 mg capsule,delayed 20 mg PO DAILY PRN 02/19/21 09/23/21 Unknown History release ibuprofen 600 mg tablet 600 mg PO Q6H PRN 09/23/21 09/23/21 Unknown History methylphenidate HCl 27 mg 27 mg PO DAILY 09/23/21 09/23/21 Unknown History tablet,extended release 24 hr (Concerta) nitrofurantoin 100 mg PO BID 09/23/21 09/23/21 Unknown History monohydrate/macrocrystals 100 mg capsule Physical Exam Vital Signs: Vital Signs: Last Vital Signs Temp 103.0 F H 09/24/21 14:49 Pulse 120 H 09/24/21 06:31 Resp 32 H 09/24/21 06:31 BP 110/63 09/24/21 06:31 Pulse Ox 98 09/24/21 06:31 BMI result Body Mass Index 22.2 Const: Other: General: AO X 3, no acute distress Resp: CTA bilateral CVS: S1,S2,RRR GI: +BS, NT, no distention : left flank tenderness Skin: No rash Neuro: motor grossly intact Psych: appropriate affect General: cooperative, healthy appearing, comfortable and no acute distress Orientation/consciousness: patient oriented x3 HEENT: Head: Yes normal to inspection Face and sinus: Yes normal facial exam Mouth: Normal oral and palatal mucosa present and moist mucous membranes Neck: Neck: Yes normal visual inspection, Yes full ROM and Yes trachea midline Chest: Chest palpation & inspection: normal inspection of the chest Resp: Effort & Inspection: normal respiratory effort, able to speak in compl ete sentences and no respiratory distress Cardio: Rate: regular rate Rhythm: regular rhythm GI: Inspection: Yes normal to inspection Palpation (GI): Soft to palpation and Tenderness to palpation present (GI) (left flank CVA tenderness) Back/Spine/Pelvis: Cervical Spine: normal cervical lordosis Thoracic/Lumbar Spine: thoracic and lumbar spine normal to inspection Skin: General skin exam: no rashes or lesions noted Neuro: Other: nonfocal neurological examination. The patient is somewhat drowsy from sedation but oriented and appropriate. Neck is supple General: patient oriented x3, tone normal and moves all extremities Extrem: General: Yes normal to inspection and Yes capillary refill normal Results Labs CBC & Chem 7: 09/24/21 07:12 09/24/21 07:12 Labs: Short CBC 09/23/21 09/24/21 Range/Units 16:50 07:12 WBC 25.5 H 19.0 H (4.8-10.8) X10*3/uL Hgb 10.7 L 9.1 L (12.0-16.0) g/dl Hct 32.8 L 29.3 L (37.0-47.0) % Plt Count 211 D 175 (160-400) X10*3/uL BMP 09/23/21 09/24/21 16:50 07:12 Sodium 136 138 Potassium 3.8 4.3 Chloride 101 110 H Carbon Dioxide 26 20 L BUN 20 H 20 H Creatinine 1.31 1.21 Calcium 11.3 H 9.6 D Urine 09/23/21 Range/Units 17:45 Urine Color YELLOW Urine Appearance CLEAR Urine pH 5.5 (5.0-8.0) Ur Specific [place] 1.020 (1.005-1.025) Urine Protein 2+ H (NEG-TRACE) MG/DL Urine Glucose (UA) NEG (NEG) MG/DL Microbiology Microbiology Results: Microbiology 09/23/21 16:50 Blood - Venous Blood Culture - Preliminary Prelim: GNR Gram Stain only 09/23/21 18:06 Urine clean catch - Urine lockett top Urine Culture - Preliminary No growth to date. Assessment and Plan (1) Severe sepsis: Status: Acute She has gram negative sepsis likely due to some obstruction maybe due to nephrolithiasis She is seeing Urology and probably getting stents today. Antibiotic coverage. Adequate hydration. Expect her headaches will resolve once the infection is controlled. (2) Headache: Status: Acute symptomatic treatment of headache. Expect it will resolve once the infection is better. She does not need lumbar puncture. Plan Change Cefepime to Ceftriaxone as it is more specific for general urinary pathogens. Await final urine and blood culture and 14 day total antibiotic and would switch to optimal po agent on discharge. Urology to follow Procedures Date of Service Date of Service: 09/24/21
[2021-09-24 16:14] LABS: Troponin-I High Sensitivity 6.8 ng/L (<3.5-17.0)
--- NOTE | 2021-09-24 17:44 | MHC.SHP ---
Pre-Procedural Eval Section A Date of Service: 09/24/21 The patient is an INPATIENT: Yes Changes since office visit: No Cold of Flu in the past 2 weeks, No New Medical Problems, No Changes in Medication and No Patient answered all questions The History & Physical has been completed within 30 days and I have reviewed it.: Yes Section B Chief Complaint: Severe Sepsis Details of Present Illness: cystoscopy, left retrograde, left stent placement Allergies: Allergies Allergy/AdvReac Type Severity Reaction Status Date / Time No Known Allergies Allergy Verified 02/19/21 15:15 Plan Diagnosis/Plan: Unchanged ( cystoscopy, left retrograde, left stent placement) I have reviewed the history and physical and performed a pertinent physical examination on my patient. No changes have occurred unless specified.
--- NOTE | 2021-09-24 18:17 | W.PM.OPN ---
Operative Note Operative Note Date of Service: 09/24/21 Narrative: PreOperative Diagnosis: left pyelonephritis with elevated creatinine Post Operative Diagnosis: left pyelonephritis with elevated creatinine Procedure: cystoscopy, left retrograde, left stent placement Surgeon: Dr Arturo Belcher Anesthesia: sedation Indications for procedure: admit with persistent pyelonephritis on left side elevated white count and elevated creatinine. CT scan suggestive pyelonephritis with nephritis. Renal pelvis PSA to be non draining. Procedure: After informed consent was verified the patient was brought to the operating room and placed in a supine position. Anesthesia was administered per protocol. The patient was placed in modified dorsal lithotomy position and prepped and draped in a sterile fashion. A safety pause time-out was performed. Laterality of procedure and antibiotics were confirmed. appropriate imaging was available A 22 [place] cystoscope was introduced per urethra. No abnormality was noted. Both ureteric orifices were seen in a normal position. The Left ureter was cannulated with an open ended catheter and a retrograde examination was performed. no filling defects seen . A Sensor guidewire was placed under fluoroscopy and a good coil was seen within the renal pelvis. A 6 Mongolian by 28 cm was advanced over the wire and up to the level of the renal pelvis under fluoroscopic and direct visualization. The stent was seen with appropriate coil within the renal pelvis and in the bladder after deployment. minimal purlent material seen on placement The patient tolerated the procedure well and was transferred in stable condition to the recovery area. Pathology: none Drains: 6 Mongolian by 28 cm stent
--- NOTE | 2021-09-24 18:31 | HO.ANESPROP2 ---
[facility] Active Problems Active Problems: All Active Problems (Updated 09/24/21 @ 15:34 by Merissa Kruse MD) Headache (Acute) Severe sepsis (Acute) Acute nephritis (Acute) Constipation (Acute) Renal and ureteric calculus (Acute) Hematuria due to acute cystitis (Acute) Past Medical History Medical History Hematuria due to acute cystitis No known health problems Renal and ureteric calculus Social History Social History Are you a primary infant caregiver to a significant other at home: Yes Do you presently have visiting nurse or other home services: No Alcohol intake: current Alcohol intake frequency: a few times a month Patient Tobacco Use Status: Current someday Tobacco user Tobacco use type: Cigarette service: No Current occupational status: unemployed Meds Allergies Allergy/AdvReac Type Severity Reaction Status Date / Time Sulfa (Sulfonamide Allergy Chest Pain Verified 09/24/21 18:31 Antibiotics) Active Medications: Current Medications Acetaminophen (Acetaminophen 325 Mg Tablet) 650 mg PO Q6H PRN PRN Reason: Pain, Mild (Pain Scale 1-3) Last Admin: 09/24/21 14:54 Dose: 650 mg Documented by: Bupropion HCl (Bupropion Hcl 100 Mg Tablet) 100 mg PO DAILY [facility] Last Admin: 09/24/21 09:52 Dose: 100 mg Documented by: Heparin Sodium (Porcine) (Heparin Sodium,Porcine 5,000 Unit/Ml Vial) 5,000 unit SUBCUT Q8H [facility] Last Admin: 09/24/21 15:25 Dose: Not Given Documented by: Hydromorphone HCl (Hydromorphone Hcl 0.5 Mg/0.5 Ml Syringe) 0.5 mg IVPUSH Q4H PRN; Protocol PRN Reason: Pain, Severe (Pain Scale 7-10) Last Admin: 09/24/21 09:51 Dose: 0.5 mg Documented by: Sodium Chloride (Ns) 1,000 mls @ 125 mls/hr IVCONT .Q8H [facility] Last Admin: 09/24/21 14:19 Dose: 125 mls/hr Documented by: Sodium Chloride (Ns) 1,000 mls @ 100 mls/hr IVCONT .Q10H [facility] Last Admin: 09/24/21 09:52 Dose: Not Given Documented by: Ceftriaxone Sodium 1 gm/ (Sodium Chloride) 50 mls @ 100 mls/hr IV Q24H [facility] Last Infusion: 09/24/21 15:49 Dose: Infused Documented by: Ibuprofen (Ibuprofen 600 Mg Tablet) 600 mg PO Q6H PRN PRN Reason: fever or pain Melatonin (Melatonin 3 Mg Tablet) 6 mg PO BEDTIME PRN PRN Reason: Insomnia Non-Formulary Medication (Methylphenidate Hcl [Concerta]) 27 mg PO DAILY [facility] Omeprazole (Omeprazole 20 Mg Capsule.Dr) 20 mg PO DAILY PRN PRN Reason: Dyspepsia Pharmacy Consult (Consult Rx Perform Med Rec) 1 each MISCELLANE ONCE PRN PRN Reason: Consult order Senna (Sennosides 8.6 Mg Tablet) 17.2 mg PO BEDTIME PRN PRN Reason: Constipation Sodium Chloride (0.9 % Sodium Chloride Flush 3 Ml Syringe) 3 ml IVFLUSH QSHIFT [facility] Last Admin: 09/24/21 16:45 Dose: Not Given Documented by: Home Medications Medication Instructions Recorded Confirmed Last Taken Type bupropion HCl 100 mg tablet,12 hr 100 mg PO DAILY 02/19/21 09/23/21 Unknown History sustained-release omeprazole 20 mg capsule,delayed 20 mg PO DAILY PRN 02/19/21 09/23/21 Unknown History release ibuprofen 600 mg tablet 600 mg PO Q6H PRN 09/23/21 09/23/21 Unknown History methylphenidate HCl 27 mg 27 mg PO DAILY 09/23/21 09/23/21 Unknown History tablet,extended release 24 hr (Concerta) nitrofurantoin 100 mg PO BID 09/23/21 09/23/21 Unknown History monohydrate/macrocrystals 100 mg capsule Exam Exam Date and Time: September 24, 2021 1831 Height,Weight and Vital Signs: Height 5 ft 10 in Weight 70.307 kg Last Vital Signs Temp 100.2 F 09/24/21 16:58 Pulse 98 09/24/21 16:58 Resp 18 09/24/21 16:58 BP 93/52 L 09/24/21 16:58 Pulse Ox 90 L 09/24/21 16:58 Pertinent Lab Results Pertinent Lab Results: Laboratory Tests 09/23/21 09/23/21 09/23/21 16:50 16:50 16:50 WBC 25.5 H RBC 4.17 L Hgb 10.7 L Hct 32.8 L MCV 78.7 L MCH 25.7 L MCHC 32.6 RDW 14.4 Plt Count 211 D MPV 10.6 Immature Gran % (Auto) Cancelled Neut % (Auto) Cancelled Lymph % (Auto) Cancelled [place] % (Auto) Cancelled Eos % (Auto) Cancelled Baso % (Auto) Cancelled Lymph # (Auto) Cancelled [place] # (Auto) Cancelled Eos # (Auto) Cancelled Baso # (Auto) Cancelled Abs Immat Gran (auto) Cancelled Absolute Neuts (auto) Cancelled Absolute Nucleated RBC 0.000 Nucleated RBC % (auto) 0.0 Neutrophils % (Manual) 49 Band Neutrophils % 42 H Lymphocytes % (Manual) 2 L Monocytes % (Manual) 6 Metamyelocytes % 1 Abs Neuts (Manual) 23.2 H Lymphocytes # (Manual) 0.5 L Monocytes # (Manual) 1.5 H Metamyelocytes # 0.3 Toxic Vacuolation Dohle Bodies Platelet Estimate NORMAL Large Platelets Plt Morphology Comment NORMAL RBC Morphology NORMAL PT INR APTT Sodium 136 Potassium 3.8 Chloride 101 Carbon Dioxide 26 Anion Gap 13 BUN 20 H Creatinine 1.31 Estim Creat Clear Calc 57.4 Estimated GFR 44 Random Glucose 103 Lactic Acid 2.1 H* Lactic Acid F/U @ 2Hr Lactic Acid F/U @ 4Hr Calcium 11.3 H Troponin I High Sens Urine Color Urine Appearance Urine pH Ur Specific [place] Urine Protein Urine Glucose (UA) Urine Ketones Urine Blood Urine Nitrite Ur Leukocyte Esterase Urine RBC Urine WBC Ur Squamous Epith Cells Urine Bacteria Urine Test COVID-19 (HAMZAH) COVID-19 Clin Com 09/23/21 09/23/21 09/23/21 16:51 17:21 17:45 WBC RBC Hgb Hct MCV MCH MCHC RDW Plt Count MPV Immature Gran % (Auto) Neut % (Auto) Lymph % (Auto) [place] % (Auto) Eos % (Auto) Baso % (Auto) Lymph # (Auto) [place] # (Auto) Eos # (Auto) Baso # (Auto) Abs Immat Gran (auto) Absolute Neuts (auto) Absolute Nucleated RBC Nucleated RBC % (auto) Neutrophils % (Manual) Band Neutrophils % Lymphocytes % (Manual) Monocytes % (Manual) Metamyelocytes % Abs Neuts (Manual) Lymphocytes # (Manual) Monocytes # (Manual) Metamyelocytes # Toxic Vacuolation Dohle Bodies Platelet Estimate Large Platelets Plt Morphology Comment RBC Morphology PT 15.7 H INR 1.4 H APTT 34.9 Sodium Potassium Chloride Carbon Dioxide Anion Gap BUN Creatinine Estim Creat Clear Calc Estimated GFR Random Glucose Lactic Acid Lactic Acid F/U @ 2Hr Lactic Acid F/U @ 4Hr Calcium Troponin I High Sens Urine Color YELLOW Urine Appearance CLEAR Urine pH 5.5 Ur Specific [place] 1.020 Urine Protein 2+ H Urine Glucose (UA) NEG Urine Ketones NEG Urine Blood 2+ H Urine Nitrite NEG Ur Leukocyte Esterase 1+ H Urine RBC 5-9 H Urine WBC 15-29 H Ur Squamous Epith Cells 2+ Urine Bacteria 2+ Urine Test COVID-19 (HAMZAH) Negative COVID-19 [facility] See Note 09/23/21 09/23/21 09/23/21 17:45 22:49 23:32 WBC RBC Hgb Hct MCV MCH MCHC RDW Plt Count MPV Immature Gran % (Auto) Neut % (Auto) Lymph % (Auto) [place] % (Auto) Eos % (Auto) Baso % (Auto) Lymph # (Auto) [place] # (Auto) Eos # (Auto) Baso # (Auto) Abs Immat Gran (auto) Absolute Neuts (auto) Absolute Nucleated RBC Nucleated RBC % (auto) Neutrophils % (Manual) Band Neutrophils % Lymphocytes % (Manual) Monocytes % (Manual) Metamyelocytes % Abs Neuts (Manual) Lymphocytes # (Manual) Monocytes # (Manual) Metamyelocytes # Toxic Vacuolation Dohle Bodies Platelet Estimate Large Platelets Plt Morphology Comment RBC Morphology PT INR APTT Sodium Potassium Chloride Carbon Dioxide Anion Gap BUN Creatinine Estim Creat Clear Calc Estimated GFR Random Glucose Lactic Acid Lactic Acid F/U @ 2Hr 2.5 H* Lactic Acid F/U @ 4Hr Calcium Troponin I High Sens < 3.5 Urine Color Urine Appearance Urine pH Ur Specific [place] Urine Protein Urine Glucose (UA) Urine Ketones Urine Blood Urine Nitrite Ur Leukocyte Esterase Urine RBC Urine WBC Ur Squamous Epith Cells Urine Bacteria Urine Test NEGATIVE COVID-19 (HAMZAH) COVID-19 [facility] 09/24/21 09/24/21 09/24/21 01:48 07:12 07:12 WBC 19.0 H RBC 3.59 L Hgb 9.1 L Hct 29.3 L MCV 81.6 MCH 25.3 L MCHC 31.1 RDW 14.8 Plt Count 175 MPV 11.7 Immature Gran % (Auto) Cancelled Neut % (Auto) Cancelled Lymph % (Auto) Cancelled [place] % (Auto) Cancelled Eos % (Auto) Cancelled Baso % (Auto) Cancelled Lymph # (Auto) Cancelled [place] # (Auto) Cancelled Eos # (Auto) Cancelled Baso # (Auto) Cancelled Abs Immat Gran (auto) Cancelled Absolute Neuts (auto) Cancelled Absolute Nucleated RBC 0.000 Nucleated RBC % (auto) 0.0 Neutrophils % (Manual) 59 Band Neutrophils % 36 H Lymphocytes % (Manual) 3 L Monocytes % (Manual) 2 Metamyelocytes % Abs Neuts (Manual) 18.1 H Lymphocytes # (Manual) 0.6 L Monocytes # (Manual) 0.4 Metamyelocytes # Toxic Vacuolation PRESENT Dohle Bodies PRESENT Platelet Estimate NORMAL Large Platelets PRESENT Plt Morphology Comment NORMAL RBC Morphology NORMAL PT INR APTT Sodium 138 Potassium 4.3 Chloride 110 H Carbon Dioxide 20 L Anion Gap 12 BUN 20 H Creatinine 1.21 Estim Creat Clear Calc 62.1 Estimated GFR 48 Random Glucose 96 Lactic Acid Lactic Acid F/U @ 2Hr Lactic Acid F/U @ 4Hr 1.7 Calcium 9.6 D Troponin I High Sens Urine Color Urine Appearance Urine pH Ur Specific [place] Urine Protein Urine Glucose (UA) Urine Ketones Urine Blood Urine Nitrite Ur Leukocyte Esterase Urine RBC Urine WBC Ur Squamous Epith Cells Urine Bacteria Urine Test COVID-19 (HAMZAH) COVID-19 Clin Com 09/24/21 15:30 WBC RBC Hgb Hct MCV MCH MCHC RDW Plt Count MPV Immature Gran % (Auto) Neut % (Auto) Lymph % (Auto) [place] % (Auto) Eos % (Auto) Baso % (Auto) Lymph # (Auto) [place] # (Auto) Eos # (Auto) Baso # (Auto) Abs Immat Gran (auto) Absolute Neuts (auto) Absolute Nucleated RBC Nucleated RBC % (auto) Neutrophils % (Manual) Band Neutrophils % Lymphocytes % (Manual) Monocytes % (Manual) Metamyelocytes % Abs Neuts (Manual) Lymphocytes # (Manual) Monocytes # (Manual) Metamyelocytes # Toxic Vacuolation Dohle Bodies Platelet Estimate Large Platelets Plt Morphology Comment RBC Morphology PT INR APTT Sodium Potassium Chloride Carbon Dioxide Anion Gap BUN Creatinine Estim Creat Clear Calc Estimated GFR Random Glucose Lactic Acid Lactic Acid F/U @ 2Hr Lactic Acid F/U @ 4Hr Calcium Troponin I High Sens 6.8 D Urine Color Urine Appearance Urine pH Ur Specific [place] Urine Protein Urine Glucose (UA) Urine Ketones Urine Blood Urine Nitrite Ur Leukocyte Esterase Urine RBC Urine WBC Ur Squamous Epith Cells Urine Bacteria Urine Test COVID-19 (HAMZAH) COVID-19 Clin Com Airway Mallampati Class: II TM Dist: >3cm Neck ROM: Full Heart: RRR Lungs: CTA Assessment and Plan Assessment Anesthesia Assessment: Anesthesia Plan Discussed and Chart Reviewed Final Anesthetic Review NPO: Yes ASA Class: II Final Preanesthetic Review: No Changes in Pt Med Stat, Meds/Allgs Chart Reviewed, Consent Obtained/Reviewed and Anes Risks/Benef Reviewed Patient Risk: Low Procedure Risk: Low Anesthetic Plan Anesthetic Plan: GA and MAC:
[2021-09-25] VITALS (7 sets, daily range): BP systolic 114–134; BP diastolic 64–76; PULSE 74–105; RESP 15–20; TEMP 36.3–39.3; O2SAT 91–100; BMI 21.2
[2021-09-25] MEDS: Heparin Sodium,Porcine 5,000 UNIT/ML VIAL 5000 UNIT SUBCUT ×3 (00:11→23:00)
[2021-09-25] MEDS: 0.9 % Sodium Chloride 1,000 ML 125 ML IVCONT ×3 (02:56→23:02)
[2021-09-25] MEDS: HYDROmorphone HCl 0.5 MG/0.5 ML SYRINGE IVPUSH ×2 (02:58→14:38)
[2021-09-25] MEDS: Acetaminophen 325 MG TABLET 650 MG PO (03:01)
[2021-09-25] MEDS: buPROPion HCL 100 MG TABLET PO (09:51)
[2021-09-25] MEDS: Phenazopyridine HCL 100 MG TABLET PO (09:51)
[2021-09-25] MEDS: polyethylene glycoL 3350 17 GM POWD.PACK PO (09:52)
[2021-09-25] MEDS: 0.9 % Sodium Chloride Flush 3 ML SYRINGE IVFLUSH (09:52)
--- NOTE | 2021-09-25 10:45 | P.PNIM_ITS ---
Subjective Subjective Date of Service: 09/25/21 Interval History: CC: f/u on sepsis interval history:Fever resolved, still with flank pain and dysuria Review of Systems chills, left flank pain Physical Exam Vital Signs: Vital Signs: Last Vital Signs Temp 97.4 F 09/25/21 07:11 Pulse 83 09/25/21 07:11 Resp 18 09/25/21 07:11 BP 114/70 09/25/21 07:11 Pulse Ox 95 09/25/21 07:11 BMI result Body Mass Index 21.2 Const: Other: General: AO X 3, no acute distress Resp: CTA bilateral CVS: S1,S2,RRR GI: +BS, NT, no distention : left flank tenderness Skin: No rash Neuro: motor grossly intact Psych: appropriate affect Objective Data Active Medications Acetaminophen (Acetaminophen 325 Mg Tablet) 650 mg PO Q6H PRN PRN Reason: Pain, Mild (Pain Scale 1-3) Last Admin: 09/25/21 03:01 Dose: 650 mg Documented by: BRAIN Bupropion HCl (Bupropion Hcl 100 Mg Tablet) 100 mg PO DAILY [facility] Last Admin: 09/25/21 09:51 Dose: 100 mg Documented by: HEMANTH Fentanyl (Fentanyl Citrate/Pf 100 Mcg/2 Ml Vial) 25 mcg IVPUSH Q5M PRN; Protocol PRN Reason: Pain, Moderate (Pain Scale 4-6 Heparin Sodium (Porcine) (Heparin Sodium,Porcine 5,000 Unit/Ml Vial) 5,000 unit SUBCUT Q8H [facility] Last Admin: 09/25/21 09:52 Dose: 5,000 unit Documented by: HEMANTH Hydromorphone HCl (Hydromorphone Hcl 0.5 Mg/0.5 Ml Syringe) 0.5 mg IVPUSH Q4H PRN; Protocol PRN Reason: Pain, Severe (Pain Scale 7-10) Last Admin: 09/25/21 02:58 Dose: 0.5 mg Documented by: BRAIN Hydromorphone HCl (Hydromorphone Hcl 0.5 Mg/0.5 Ml Syringe) 0.25 mg IVPUSH Q5M PRN; Protocol PRN Reason: Pain, Severe (Pain Scale 7-10) Sodium Chloride (Ns) 1,000 mls @ 125 mls/hr IVCONT .Q8H [facility] Last Admin: 09/25/21 05:06 Dose: Not Given Documented by: BRAIN Non-Admin Reason: IV Running Sodium Chloride (Ns) 1,000 mls @ 100 mls/hr IVCONT .Q10H [facility] Last Admin: 09/25/21 03:07 Dose: Not Given Documented by: BRAIN Non-Admin Reason: Duplicate Order Ceftriaxone Sodium 1 gm/ (Sodium Chloride) 50 mls @ 100 mls/hr IV Q24H [facility] Last Infusion: 09/24/21 15:49 Dose: 0 mls/hr Documented by: JANA Promethazine HCl 12.5 mg/ (Sodium Chloride) 50.5 mls @ 202 mls/hr IV ONCE PRN PRN Reason: Nausea and Vomiting Ibuprofen (Ibuprofen 600 Mg Tablet) 600 mg PO Q6H PRN PRN Reason: fever or pain Ketorolac Tromethamine (Ketorolac Tromethamine 15 Mg/Ml Vial) 15 mg IVPUSH Q6H PRN PRN Reason: Pain, Severe (Pain Scale 7-10) Melatonin (Melatonin 3 Mg Tablet) 6 mg PO BEDTIME PRN PRN Reason: Insomnia Non-Formulary Medication (Methylphenidate Hcl [Concerta]) 27 mg PO DAILY [facility] Omeprazole (Omeprazole 20 Mg Capsule.Dr) 20 mg PO DAILY PRN PRN Reason: Dyspepsia Ondansetron HCl (Ondansetron Hcl 4 Mg/2 Ml Vial) 4 mg IVPUSH ONCE PRN PRN Reason: Nausea and Vomiting Oxycodone HCl (Oxycodone Hcl Immed Release 5 Mg Tablet) 5 mg PO ONCE PRN PRN Reason: Pain, Severe (Pain Scale 7-10) Pharmacy Consult (Consult Rx Perform Med Rec) 1 each MISCELLANE ONCE PRN PRN Reason: Consult order Phenazopyridine HCl (Phenazopyridine Hcl 100 Mg Tablet) 100 mg PO BIDWM PRN PRN Reason: dysuria Stop: 09/27/21 09:10 Last Admin: 09/25/21 09:51 Dose: 100 mg Documented by: HEMANTH Polyethylene Glycol (Polyethylene Glycol 3350 17 Gm Powd.Pack) 17 gm PO DAILY [facility] Last Admin: 09/25/21 09:52 Dose: 17 gm Documented by: HEMANTH Senna (Sennosides 8.6 Mg Tablet) 17.2 mg PO BEDTIME PRN PRN Reason: Constipation Sodium Chloride (0.9 % Sodium Chloride Flush 3 Ml Syringe) 3 ml IVFLUSH QSHIFT [facility] Last Admin: 09/25/21 09:52 Dose: 3 ml Documented by: HEMANTH Tramadol HCl (Tramadol Hcl 50 Mg Tablet) 50 mg PO Q6H PRN PRN Reason: Pain, Moderate (Pain Scale 4-6 Labs CBC & Chem 7: 09/24/21 07:12 09/24/21 07:12 Labs: Laboratory Results - last 24 hr 09/24/21 15:30 Troponin I High Sens 6.8 D Microbiology Microbiology Results: Microbiology 09/23/21 16:50 Blood Culture - Preliminary Blood - Venous Gram negative [place] 09/23/21 17:21 Blood Culture - Preliminary Blood - Venous No growth after 24 hours. 09/23/21 18:06 Urine Culture - Preliminary Urine clean catch - Urine [place] top No growth to date. Assessment and Plan (1) Severe sepsis: Status: Acute (2) Acute nephritis: Status: Acute (3) Constipation: Status: Acute (4) Hematuria due to acute cystitis: Status: Acute Plan 6-year-old female with a past medical history of anxiety, depression presented to the hospital with a chief complaint of urinary burning/hematuria/left flank pain.? Noted to have left CVA tenderness on exam, severe sepsis in the setting of UTI.? Admitted for further management. Severe sepsis due to acute pyelonephritis due to gram negative [place] sepsis and bacteremia -s/p cystoscopy with stent on 09/24 -Cefepime changed to Ceftriaxone -Toradol, dilaudid for pain, Pyridium for dysuria Chest discomfort: resolved Headaches:? NSAID PRN History of anxiety/depression: Continue home medications Quality Stroke Does the patient have a stroke diagnosis?: No VTE Prior VTE?: No VTE Risk Level:: Medical - moderate - high VTE Device Contraindication: Treatment Not Indicated VTE Drug Contraindication: N/A - Med Ordered
--- NOTE | 2021-09-25 13:00 | HO.POSTANES ---
Post Anesthesia Evaluation Post Anesthesia Evaluation Vital Signs: Vital Signs Temp Pulse Resp BP Pulse Ox 09/25/21 11:09 99.1 F 74 18 127/76 95 09/25/21 07:11 97.4 F 83 18 114/70 95 09/25/21 04:30 100 F 09/25/21 03:18 101.7 F H 97 20 134/67 98 Anesthesia: General LMA Mental Status: Awake Pain Control: Satisfactory Nausea/Vomiting: None Hydration: Adequate Anesthesia-Related Issues: No Anes. Related Issues
--- NOTE | 2021-09-25 13:37 | MHC.CM.PN ---
per rounds today pt may be ready for dc plan reman ins home no servceis
[2021-09-25] MEDS: cefTRIAXone sodium 1 GM in 0.9 % Sodium Chloride 50 ML IV (14:29)
[2021-09-25] MEDS: Ibuprofen 600 MG TABLET PO (19:42)
[2021-09-25] MEDS: oxyCODONE HCl Immed Release 5 MG TABLET PO (23:01)
[2021-09-25] MEDS: Gentamicin Sulfate 160 MG in 0.9 % Sodium Chloride 100 ML 100 MG IV (23:02)
[2021-09-26 03:41] VITALS: BP 120/79; PULSE 63; RESP 18; TEMP 36.8; O2SAT 93
[2021-09-26 07:25] VITALS: BP 137/78; PULSE 64; RESP 18; TEMP 37.3; O2SAT 93
[2021-09-26 08:38] LABS: Hematocrit 25.1 % (37.0-47.0); Hemoglobin 8.2 g/dl (12.0-16.0); Mean Corpuscular HGB Conc 32.7 g/dl (31.0-35.0); Mean Corpuscular Hemoglobin 25.4 pg (27.0-33.0); Mean Corpuscular Volume 77.7 fL (80.0-98.0); Platelet Count 155 X10*3/uL (160-400); Red Blood Count 3.23 X10*6/uL (4.20-5.50); Red Cell Distribution Width 15.9 % (11.0-16.0); White Blood Count 9.2 X10*3/uL (4.8-10.8)
[2021-09-26 08:49] LABS: Anion Gap 10 (12-20); Blood Urea Nitrogen 17 mg/dL (9-16); Carbon Dioxide 21 mmol/L (22-29); Chloride 116 mmol/L (96-108); Creatinine Clr Calc Pharmacy 97.1; Estimated Glomerular Filt Rate > 60; Glucose Random 91 mg/dL (60-115); Sodium 143 mmol/L (135-145)
[2021-09-26] MEDS: Phenazopyridine HCL 100 MG TABLET PO (09:46)
[2021-09-26] MEDS: buPROPion HCL 100 MG TABLET PO (09:46)
[2021-09-26] MEDS: polyethylene glycoL 3350 17 GM POWD.PACK PO (09:47)
[2021-09-26] MEDS: 0.9 % Sodium Chloride Flush 3 ML SYRINGE IVFLUSH ×2 (09:47→23:11)
[2021-09-26] MEDS: Ketorolac Tromethamine 15 MG/ML VIAL IVPUSH (09:47)
--- NOTE | 2021-09-26 10:17 | P.PNIM_ITS ---
Subjective Subjective Date of Service: 09/26/21 Interval History: CC: f/u on sepsis interval history: afebrile this morning, pain is better, had multiple bowel movement yesterday Review of Systems chills, left flank pain Physical Exam Vital Signs: Vital Signs: Last Vital Signs Temp 99.2 F 09/26/21 07:25 Pulse 64 09/26/21 07:25 Resp 18 09/26/21 07:25 BP 137/78 09/26/21 07:25 Pulse Ox 93 09/26/21 07:25 BMI result Body Mass Index 21.2 Const: Other: General: AO X 3, no acute distress Resp: CTA bilateral CVS: S1,S2,RRR GI: +BS, NT, no distention : no specific lower abdomen tenderness Skin: No rash Neuro: motor grossly intact Psych: appropriate affect Objective Data Active Medications Acetaminophen (Acetaminophen 325 Mg Tablet) 650 mg PO Q6H PRN PRN Reason: Pain, Mild (Pain Scale 1-3) Last Admin: 09/25/21 03:01 Dose: 650 mg Documented by: BRAIN Bupropion HCl (Bupropion Hcl 100 Mg Tablet) 100 mg PO DAILY [facility] Last Admin: 09/26/21 09:46 Dose: 100 mg Documented by: HEMANTH Fentanyl (Fentanyl Citrate/Pf 100 Mcg/2 Ml Vial) 25 mcg IVPUSH Q5M PRN; Protocol PRN Reason: Pain, Moderate (Pain Scale 4-6 Heparin Sodium (Porcine) (Heparin Sodium,Porcine 5,000 Unit/Ml Vial) 5,000 unit SUBCUT Q8H [facility] Last Admin: 09/26/21 06:36 Dose: Not Given Documented by: NGOZI Non-Admin Reason: Patient Refused Hydromorphone HCl (Hydromorphone Hcl 0.5 Mg/0.5 Ml Syringe) 0.5 mg IVPUSH Q4H PRN; Protocol PRN Reason: Pain, Severe (Pain Scale 7-10) Last Admin: 09/25/21 14:38 Dose: 0.5 mg Documented by: HEMANTH Hydromorphone HCl (Hydromorphone Hcl 0.5 Mg/0.5 Ml Syringe) 0.25 mg IVPUSH Q5M PRN; Protocol PRN Reason: Pain, Severe (Pain Scale 7-10) Sodium Chloride (Ns) 1,000 mls @ 125 mls/hr IVCONT .Q8H [facility] Last Infusion: 09/26/21 07:25 Dose: 0 mls/hr Documented by: HEMANTH Sodium Chloride (Ns) 1,000 mls @ 100 mls/hr IVCONT .Q10H [facility] Last Admin: 09/26/21 09:52 Dose: Not Given Documented by: HEMANTH Non-Admin Reason: d/c per Ceftriaxone Sodium 1 gm/ (Sodium Chloride) 50 mls @ 100 mls/hr IV Q24H [facility] Last Infusion: 09/25/21 15:01 Dose: 0 mls/hr Documented by: HEMANTH Promethazine HCl 12.5 mg/ (Sodium Chloride) 50.5 mls @ 202 mls/hr IV ONCE PRN PRN Reason: Nausea and Vomiting Ibuprofen (Ibuprofen 600 Mg Tablet) 600 mg PO Q6H PRN PRN Reason: fever or pain Last Admin: 09/25/21 19:42 Dose: 600 mg Documented by: NGOZI Ketorolac Tromethamine (Ketorolac Tromethamine 15 Mg/Ml Vial) 15 mg IVPUSH Q6H PRN PRN Reason: Pain, Severe (Pain Scale 7-10) Last Admin: 09/26/21 09:47 Dose: 15 mg Documented by: HEMANTH Melatonin (Melatonin 3 Mg Tablet) 6 mg PO BEDTIME PRN PRN Reason: Insomnia Non-Formulary Medication (Methylphenidate Hcl [Concerta]) 27 mg PO DAILY [facility] Omeprazole (Omeprazole 20 Mg Capsule.Dr) 20 mg PO DAILY PRN PRN Reason: Dyspepsia Ondansetron HCl (Ondansetron Hcl 4 Mg/2 Ml Vial) 4 mg IVPUSH ONCE PRN PRN Reason: Nausea and Vomiting Oxybutynin Chloride (Oxybutynin Chloride Er 5 Mg Tab.Er.24) 5 mg PO BID PRN PRN Reason: Muscle Spasm Last Admin: 09/26/21 09:46 Dose: 5 mg Documented by: HEMANTH Pharmacy Consult (Consult Rx Perform Med Rec) 1 each MISCELLANE ONCE PRN PRN Reason: Consult order Phenazopyridine HCl (Phenazopyridine Hcl 100 Mg Tablet) 100 mg PO BIDWM PRN PRN Reason: dysuria Stop: 09/27/21 09:10 Last Admin: 09/26/21 09:46 Dose: 100 mg Documented by: HEMANTH Polyethylene Glycol (Polyethylene Glycol 3350 17 Gm Powd.Pack) 17 gm PO DAILY [facility] Last Admin: 09/26/21 09:47 Dose: 17 gm Documented by: HEMANTH Senna (Sennosides 8.6 Mg Tablet) 17.2 mg PO BEDTIME PRN PRN Reason: Constipation Sodium Chloride (0.9 % Sodium Chloride Flush 3 Ml Syringe) 3 ml IVFLUSH QSHIFT [facility] Last Admin: 09/26/21 09:47 Dose: 3 ml Documented by: HEMANTH Tramadol HCl (Tramadol Hcl 50 Mg Tablet) 50 mg PO Q6H PRN PRN Reason: Pain, Moderate (Pain Scale 4-6 Labs CBC & Chem 7: 09/26/21 08:13 09/26/21 08:13 Labs: Laboratory Results - last 24 hr 09/26/21 09/26/21 08:13 08:13 MCV 77.7 L MCH 25.4 L MCHC 32.7 RDW 15.9 Plt Count 155 L MPV 12.0 Absolute Nucleated RBC 0.000 Nucleated RBC % (auto) 0.0 Anion Gap 10 L Estim Creat Clear Calc 97.1 Estimated GFR > 60 Random Glucose 91 Calcium 9.0 D Microbiology Microbiology Results: Microbiology 09/23/21 16:50 Blood Culture - Final Blood - Venous Escherichia coli 09/23/21 17:21 Blood Culture - Preliminary Blood - Venous No growth after 48 hours. 09/23/21 18:06 Urine Culture - Final Urine clean catch - Urine [place] top No growth. Assessment and Plan (1) Severe sepsis: Status: Acute (2) Acute nephritis: Status: Acute Plan 6-year-old female with a past medical history of anxiety, depression presented to the hospital with a chief complaint of urinary burning/hematuria/left flank pain.? Noted to have left CVA tenderness on exam, severe sepsis in the setting of UTI.? Admitted for further management. Severe sepsis due to acute pyelonephritis due to e coli [place] sepsis and bacteremia -s/p cystoscopy with stent on 09/24 -Cefepime changed to Ceftriaxone day after admission, received a dose of gent last night, -Toradol, dilaudid for pain, Pyridium for dysuria Chest discomfort: resolved Headaches:? NSAID PRN History of anxiety/depression: Continue home medications Need for inaptient: sepsis, still requiring IV Abx due to ongoing fever, once stable will transition to oral Abx and discharge. Quality Stroke Does the patient have a stroke diagnosis?: No VTE Prior VTE?: No VTE Risk Level:: Medical - moderate - high VTE Device Contraindication: Treatment Not Indicated VTE Drug Contraindication: N/A - Med Ordered
[2021-09-26 11:07] VITALS: BP 120/75; PULSE 86; RESP 18; TEMP 37.6; O2SAT 93
[2021-09-26] MEDS: cefTRIAXone sodium 1 GM in 0.9 % Sodium Chloride 50 ML IV (13:48)
[2021-09-26] MEDS: traMADoL HCL 50 MG TABLET PO (13:48)
--- NOTE | 2021-09-26 14:24 | P.PNUR_ITS ---
Subjective Subjective Date of Service: 09/26/21 Interval history: Slow improvement CBC has fallen dramatically Still with temperature evaluations Explained that she will have fluctuations of temperature moving forward but however the peak temperature should not be higher than the 103 she had when admitted Is completing antibiotics and did have supplemental dose of gentamicin last ni ght Physical Exam Vital Signs: Vital Signs: Last Vital Signs Temp 99.7 F 09/26/21 11:07 Pulse 86 09/26/21 11:07 Resp 18 09/26/21 11:07 BP 120/75 09/26/21 11:07 Pulse Ox 93 09/26/21 11:07 BMI result Body Mass Index 21.2 Const: General: cooperative, healthy appearing, comfortable and no acute distress Orientation/consciousness: patient oriented x3 HEENT: Face and sinus: Yes normal facial exam Mouth: moist mucous membranes Neck: Neck: Yes normal visual inspection, Yes full ROM and Yes trachea midline Chest: Chest palpation & inspection: normal inspection of the chest Resp: Effort & Inspection: normal respiratory effort, able to speak in complete sentences and no respiratory distress GI: Inspection: Yes normal to inspection Back/Spine/Pelvis: Cervical Spine: normal cervical lordosis Thoracic/Lumbar Spine: thoracic and lumbar spine normal to inspection Skin: General skin exam: no rashes or lesions noted Neuro: General: patient oriented x3, tone normal and moves all extremities Extrem: General: Yes normal to inspection and Yes capillary refill normal Urology Results Labs CBC & Chem 7: 09/26/21 08:13 09/26/21 08:13 Labs: Laboratory Results - last 24 hr 09/26/21 09/26/21 08:13 08:13 WBC 9.2 RBC 3.23 L Hgb 8.2 L Hct 25.1 L MCV 77.7 L MCH 25.4 L MCHC 32.7 RDW 15.9 Plt Count 155 L MPV 12.0 Absolute Nucleated RBC 0.000 Nucleated RBC % (auto) 0.0 Sodium 143 Potassium 4.0 Chloride 116 H Carbon Dioxide 21 L Anion Gap 10 L BUN 17 H Creatinine 0.76 Estim Creat Clear Calc 97.1 Estimated GFR > 60 Random Glucose 91 Calcium 9.0 D Progress Note: A&P Assessment and plan (1) Acute nephritis: Status: Acute Plan Slow improvement Continue antibiotics Fall Risk Details Current Medications: Current Medications Acetaminophen (Acetaminophen 325 Mg Tablet) 650 mg PO Q6H PRN PRN Reason: Pain, Mild (Pain Scale 1-3) Last Admin: 09/25/21 03:01 Dose: 650 mg Documented by: Bupropion HCl (Bupropion Hcl 100 Mg Tablet) 100 mg PO DAILY [facility] Last Admin: 09/26/21 09:46 Dose: 100 mg Documented by: Fentanyl (Fentanyl Citrate/Pf 100 Mcg/2 Ml Vial) 25 mcg IVPUSH Q5M PRN; Protocol PRN Reason: Pain, Moderate (Pain Scale 4-6 Heparin Sodium (Porcine) (Heparin Sodium,Porcine 5,000 Unit/Ml Vial) 5,000 unit SUBCUT Q8H [facility] Last Admin: 09/26/21 06:36 Dose: Not Given Documented by: Hydromorphone HCl (Hydromorphone Hcl 0.5 Mg/0.5 Ml Syringe) 0.5 mg IVPUSH Q4H PRN; Protocol PRN Reason: Pain, Severe (Pain Scale 7-10) Last Admin: 09/25/21 14:38 Dose: 0.5 mg Documented by: Hydromorphone HCl (Hydromorphone Hcl 0.5 Mg/0.5 Ml Syringe) 0.25 mg IVPUSH Q5M PRN; Protocol PRN Reason: Pain, Severe (Pain Scale 7-10) Sodium Chloride (Ns) 1,000 mls @ 125 mls/hr IVCONT .Q8H [facility] Last Admin: 09/26/21 14:06 Dose: Not Given Documented by: Sodium Chloride (Ns) 1,000 mls @ 100 mls/hr IVCONT .Q10H [facility] Last Admin: 09/26/21 09:52 Dose: Not Given Documented by: Ceftriaxone Sodium 1 gm/ (Sodium Chloride) 50 mls @ 100 mls/hr IV Q24H [facility] Last Admin: 09/26/21 13:48 Dose: 100 mls/hr Documented by: Promethazine HCl 12.5 mg/ (Sodium Chloride) 50.5 mls @ 202 mls/hr IV ONCE PRN PRN Reason: Nausea and Vomiting Ibuprofen (Ibuprofen 600 Mg Tablet) 600 mg PO Q6H PRN PRN Reason: fever or pain Last Admin: 09/25/21 19:42 Dose: 600 mg Documented by: Ketorolac Tromethamine (Ketorolac Tromethamine 15 Mg/Ml Vial) 15 mg IVPUSH Q6H PRN PRN Reason: Pain, Severe (Pain Scale 7-10) Last Admin: 09/26/21 09:47 Dose: 15 mg Documented by: Melatonin (Melatonin 3 Mg Tablet) 6 mg PO BEDTIME PRN PRN Reason: Insomnia Non-Formulary Medication (Methylphenidate Hcl [Concerta]) 27 mg PO DAILY [facility] Omeprazole (Omeprazole 20 Mg Capsule.Dr) 20 mg PO DAILY PRN PRN Reason: Dyspepsia Ondansetron HCl (Ondansetron Hcl 4 Mg/2 Ml Vial) 4 mg IVPUSH ONCE PRN PRN Reason: Nausea and Vomiting Oxybutynin Chloride (Oxybutynin Chloride Er 5 Mg Tab.Er.24) 5 mg PO BID PRN PRN Reason: Muscle Spasm Last Admin: 09/26/21 09:46 Dose: 5 mg Documented by: Pharmacy Consult (Consult Rx Perform Med Rec) 1 each MISCELLANE ONCE PRN PRN Reason: Consult order Phenazopyridine HCl (Phenazopyridine Hcl 100 Mg Tablet) 100 mg PO BIDWM PRN PRN Reason: dysuria Stop: 09/27/21 09:10 Last Admin: 09/26/21 09:46 Dose: 100 mg Documented by: Polyethylene Glycol (Polyethylene Glycol 3350 17 Gm Powd.Pack) 17 gm PO DAILY [facility] Last Admin: 09/26/21 09:47 Dose: 17 gm Documented by: Senna (Sennosides 8.6 Mg Tablet) 17.2 mg PO BEDTIME PRN PRN Reason: Constipation Sodium Chloride (0.9 % Sodium Chloride Flush 3 Ml Syringe) 3 ml IVFLUSH QSHIFT [facility] Last Admin: 09/26/21 09:47 Dose: 3 ml Documented by: Tramadol HCl (Tramadol Hcl 50 Mg Tablet) 50 mg PO Q6H PRN PRN Reason: Pain, Moderate (Pain Scale 4-6 Last Admin: 09/26/21 13:48 Dose: 50 mg Documented by: Time Spent With Patient Time: Total time spent is greater than 50% in coordination of care (as documented) at patient's floor/unit and/or counseling patient: Progress Note: Quality Stroke Does the patient have a stroke diagnosis?: No
--- NOTE | 2021-09-26 14:54 | MHC.CM.PN ---
pt dcd home no skilled servceis ordered by
[2021-09-26 15:04] VITALS: BP 141/77; PULSE 77; RESP 18; TEMP 37.2; O2SAT 92
[2021-09-26] MEDS: Ibuprofen 600 MG TABLET PO ×2 (16:04→21:31)
[2021-09-26 19:23] VITALS: BP 130/75; PULSE 82; RESP 17; TEMP 37.7; O2SAT 92
[2021-09-26] MEDS: HYDROmorphone HCl 0.5 MG/0.5 ML SYRINGE 0.25 MG IVPUSH (23:04)
[2021-09-27 07:55] VITALS: BP 151/82; PULSE 75; RESP 18; TEMP 37.2; O2SAT 100
[2021-09-27] MEDS: 0.9 % Sodium Chloride Flush 3 ML SYRINGE IVFLUSH (08:35)
[2021-09-27] MEDS: buPROPion HCL 100 MG TABLET PO (08:53)
--- NOTE | 2021-09-27 09:07 | MHC.CM.PN ---
Patient has been medically cleared for dc to home today, self care.
[2021-09-27] MEDS: Ibuprofen 600 MG TABLET PO (09:10)
--- NOTE | 2021-09-27 10:20 | PM.DS ---
DS: Providers Provider Date of Service: 09/27/21 Date of admission: 09/23/21 22:40 Primary care physician: Syed Wilson MD Consults: 09/23/21 22:40 Consult to Infectious Diseases Routine Consulting Provider: Kirti Navarrete Reason for consultation: multifocal bacterial nephritis Consult to Urology Routine Consulting Provider: Arturo Belcher Reason for consultation: multifocal bacterial nephritis/renal stones 09/24/21 02:51 Consult to Neurology Routine Consulting Provider: [facility] [place] [facility] Reason for consultation: headaches DS: Diagnosis Discharge Diagnosis (1) Severe sepsis: Status: Acute (2) Acute nephritis: Status: Acute DS: Summary Hospital Course Hospital Course: Chief Complaint:? left flank pain 46-year-old female with a past medical history of anxiety, depression, ADHD, migraine headaches, history of ?? Hyperparathyroidism, hypercalcemia, bilateral kidney stones, anemia, GERD, history of IVDA in remission presented to the hospital today with a chief complaint of left flank pain.? Patient reported that she has been having back pain for the past 3 weeks; reports she has chronic back pain; initially seen her PCP will give her pain medications for her back.? Her back pain was not improving subsequently it shifted to left flank followed by left posterior ribs; but over the past 2 days she has been having fevers.? Patient reports that she was diagnosed with kidney stones about a year ago since then she has been having cloudy urine; also when she started to have the PAC when she initially thought it is her kidney stones.? Also reports chronic hematuria.? Complains of nausea.? Denies any vomiting.? Reports she has headaches, associated mild blurry vision; denies any neck stiffness.? Today she went to her PCP, noted to have low blood pressure and subsequently sent to the ER for further evaluation. Denies any cough, sputum production, shortness of breath.? Denies any lightheadedness dizziness.? After presentation to the ER patient complained of chest discomfort, nonradiating, no associated nausea vomiting, no diaphoresis, sharp in nature.? Review of all other systems is negative except mentioned above ER course: Per ER team patient on presentation noted to have blood pressure of 87/41; given IV fluids at 30 cc/kg; blood pressure improved; on labs noted to have mild lactic acidosis; CT of the abdomen showed multifocal bacterial nephritis and renal stones.? Given vancomycin and cefepime.? Admitted to the hospital for further management. Hospital course: Essentially, she was asdmitted with sepsis due to acute pyelonephritis associated with kidney stone. Initially was give Cefepime, hydration and the next day underwent cystoscopy with left stent placement by Dr. Fink. Urine and blood cultures a re growing E. coli that is sensitive to ceftriaxone which she has been on by ID (Dr. Belcher) recommendation. Her fever have finally resolved and will be transitioned to oral ceftin for a total of 14 days of antibioitcs. Urinary incontinence: This has been an ongoing issue and should follow up with urology and Dental Ceramist Assistant on outpatient basis, discussed with her. Time Spent with Patient Time attestation: Total time spent providing and/or coordinating discharge services: Discharge coordination time: Greater than 30 minutes Quality: Stroke Does the patient have a stroke diagnosis?: No Physical Exam Vital Signs: Vital Signs: Selected Entries 09/27/21 07:55 Temperature 99.0 F Pulse Rate 75 Respiratory Rate 18 Blood Pressure 151/82 H Pulse Oximetry 100 Oxygen Delivery Me thod Room Air Const: Other: General: AO X 3, no acute distress Resp: CTA bilateral CVS: S1,S2,RRR GI: +BS, NT, no distention Skin: No rash Neuro: motor grossly intact Psych: appropriate affect DS: Data Data Completed and Pending Labs on day of discharge: Laboratory Results - last 24 hr 09/26/21 09/26/21 08:13 08:13 WBC 9.2 RBC 3.23 L Hgb 8.2 L Hct 25.1 L MCV 77.7 L MCH 25.4 L MCHC 32.7 RDW 15.9 Plt Count 155 L MPV 12.0 Absolute Nucleated RBC 0.000 Nucleated RBC % (auto) 0.0 Sodium 143 Potassium 4.0 Chloride 116 H Carbon Dioxide 21 L Anion Gap 10 L BUN 17 H Creatinine 0.76 Estim Creat Clear Calc 97.1 Estimated GFR > 60 Random Glucose 91 Calcium 9.0 D Preliminary micro results at discharge 09/23/21 17:21 Blood Culture - Preliminary Blood - Venous No growth after 48 hours. Discharge Plan Discharge Anticipated Discharge Date/Time: 09/26/21 10:24 Patient Disposition: Home, Self-Care Discharge Diagnosis: Sepsis due to pyelonephritis, renal stone, consipation Referrals: Syed Wilson MD [Primary Care Provider] - 1 Week Discharge Medications: New cefuroxime axetil 500 mg tablet 500 mg PO BID 10 Days Qty: 20 0RF oxycodone 5 mg tablet 5 mg PO Q6H PRN (Reason: pain (scale score 7-10)) Qty: 15 0RF oxycodone 5 mg tablet 5 mg PO Q6H PRN (Reason: pain (scale score 7-10)) Qty: 15 0RF Continued ibuprofen 600 mg Tablet 600 mg PO Q6H PRN (Reason: Pain (Scale Score 4-6)) 0RF nitrofurantoin monohyd/m-cryst 100 mg Capsule 100 mg PO BID 0RF Rx Instructions: ORDERED 09/22/21 FOR 7 DAYS SUPPLY, HAS ONLY TAKEN 2 DOSES must administer with a meal/food methylphenidate HCl [Concerta] 27 mg Tablet Extended Release 24hr 27 mg PO DAILY 0RF omeprazole 20 mg capsule,delayed release(DR/EC) 20 mg PO DAILY PRN (Reason: Dyspepsia) 0RF bupropion HCl 100 mg tablet sustained-release 12 hr 100 mg PO DAILY 0RF Discharge Orders: Discharge Order (Routine); Ordered 09/27/21 Ordered By: Jose Antonio Nicolas Diet: advance to usual diet Activity on Discharge: As tolerated Stand Alone Forms: Patient Portal Discharge page, Work/School Release Care Plan Goals: Full recovery from acute pyelonephritis, bacteremia Health Concerns: Pyelonephritis, kidney stone Plan of Treatment: Take Ceftin as recommended and follow up with Dr. Belcher and your primary care doctor in a week as your Doctor to make a Dental Ceramist Assistant referal for bladder incontinence issue Assessment: As above Discharge Date/Time: 09/27/21 11:46
== END 2021-09-27 11:46 | disposition home or self-care (01) | DRG 720 ==
LOC: HO.ED 19:30 → HO.EDOVER 22:46 → HO.IMC 09-24 15:20
PROVIDERS: Physician Assistant; Urology; Admitting Provider Hospitalist; Emergency Provider Emergency Medicine; PCP Family Medicine; Visit Provider Internal Medicine
PROC: 0T778DZ Dilation of Left Ureter with Intraluminal Device, Via Natural or Artificial Opening Endoscopic (ICD-10-PCS; principal; 2021-09-24 18:10)
DX: A41.51 Sepsis due to Escherichia coli [E. coli] (principal); N30.01 Acute cystitis with hematuria; R65.20 Severe sepsis without septic shock; F17.210 Nicotine dependence, cigarettes, uncomplicated; N20.2 Calculus of kidney with calculus of ureter; F32.A Depression, unspecified; N10 Acute pyelonephritis; R51.9 Headache, unspecified; F41.9 Anxiety disorder, unspecified; F90.9 Attention-deficit hyperactivity disorder, unspecified type; K21.9 Gastro-esophageal reflux disease without esophagitis; Z87.442 Personal history of urinary calculi; Z71.6 Tobacco abuse counseling; Z88.2 Allergy status to sulfonamides; Z79.899 Other long term (current) drug therapy
CPT/HCPCS: 36415; 70450; 74177; 80048; 81001; 81025; 83605; 84484; 85007; 85025; 85027; 85610; 85730; 87040; 87077; 87086; 87186; 87205; 87635; 93005; 96361; 96374; 96375; 99285; 99291; C1758; C1769; C2617; J0692; J0696; J1100; J1170; J1580; J1885; J2250; J2405; J3010; J3370; Q9967

== ENCOUNTER 2021-10-10 15:12 | Inpatient (IN) | payer OTHER, SELFPAY ==
[2021-10-10] VITALS (9 sets, daily range): BP systolic 95–100; BP diastolic 44–67; PULSE 69–109; RESP 12–20; TEMP 36.9–39.6; O2SAT 97–98; BMI 20.7
--- NOTE | ~2021-10-10 | XR_ITS ---
EXAMINATION: XR chest 1V CLINICAL INFORMATION: Reason for Exam fever COMPARISON: None TECHNIQUE: One view of the chest XR/XR chest 1V FINDINGS/IMPRESSION: Clear lungs. No pneumothorax. No pleural effusion. Normal cardiomediastinal silhouette.
--- NOTE | ~2021-10-10 | CT_ITS ---
EXAMINATION: CT ABDOMEN AND PELVIS WITHOUT CONTRAST CLINICAL INFORMATION: Left stent severe pain, fever COMPARISON: CT abdomen pelvis 09/15/2021 TECHNIQUE: Multidetector volumetric imaging was performed from the superior aspect of the liver through the pubic symphysis. Sagittal and coronal reformatted images were obtained on the technologist's workstation. This CT examination was performed using dose optimization techniques as appropriate, variously including the following: *Automated exposure control *Adjustment of mA and/or kV according to patient size (this includes techniques or standardized protocols for targeted exams where dose is matched to indication/reason for exam; i.e. extremities or head) *Use of iterative reconstruction technique DLP: 464 mGy-cm FINDINGS: LUNG BASES: Unremarkable. ABDOMINAL AND PELVIC WALL: Unremarkable. LIVER AND BILIARY TREE: Unremarkable. GALLBLADDER: Unremarkable. PANCREAS: Unremarkable. SPLEEN: Unremarkable. ADRENAL GLANDS: Unremarkable. KIDNEYS AND URETERS: Redemonstration of perinephric fat stranding and edematous appearance of the left kidney which could be seen in the setting of pyelonephritis however lack of intravenous contrast limits evaluation of the parenchyma and evaluation for abscess. Punctate nonobstructing bilateral renal stones measuring up to 2 mm in a nonobstructing left lower pole renal stone. A left nephroureteral stent in place with similar urothelial thickening surrounding the left renal pelvis. No hydronephrosis. GASTROINTESTINAL TRACT: Large and small bowel are unremarkable. Appendix is not definitively identified however there are no secondary findings to suggest acute appendicitis. VASCULAR: Unremarkable. LYMPH NODES/PERITONEUM: No lymphadenopathy. FREE FLUID: None. BLADDER: Unremarkable. PELVIC VISCERA: Unremarkable. OSSEOUS STRUCTURES: Unremarkable. CT/CT abdomen pelvis wo con IMPRESSION: Redemonstration of perinephric fat stranding and edematous appearance of the left kidney which could be seen in the setting of pyelonephritis however lack of intravenous contrast limits evaluation of the parenchyma and evaluation for abscess. A left nephroureteral stent in place with similar urothelial thickening surrounding the left renal pelvis, which may be infectious or inflammatory. No hydronephrosis. Punctate nonobstructing bilateral renal stones measuring up to 2 mm in a nonobstructing left lower pole renal stone.
[2021-10-10] MEDS: Acetaminophen 325 MG TABLET 975 MG PO (15:44)
[2021-10-10 16:40] LABS: MANUAL DIFF FLAG NO
[2021-10-10 16:41] LABS: Basophils Percent Auto 0.3 % (0-2); Eosinophils Absolute Auto 0.1 X10*3/uL (0.0-0.4); Eosinophils Percent Auto 0.8 % (0-4); Hematocrit 28.4 % (37.0-47.0); Hemoglobin 8.7 g/dl (12.0-16.0); Imm Gran Abs Auto 0.12 X10*3/uL (0.00-0.03); Imm Gran Pct Auto 1.2 % (0.0-0.4); Lymphocytes Absolute Auto 0.9 X10*3/uL (1.2-4.9); Lymphocytes Percent Auto 8.9 % (20-40); Mean Corpuscular HGB Conc 30.6 g/dl (31.0-35.0); Mean Corpuscular Hemoglobin 24.6 pg (27.0-33.0); Mean Corpuscular Volume 80.2 fL (80.0-98.0); Mean Platelet Volume 9.7 fL (9.4-12.3); Monocytes Absolute Auto 0.7 X10*3/uL (0.1-1.2); Monocytes Percent Auto 7.4 % (2-11); Neutrophils Absolute Auto 7.9 x10*3/uL (2.0-8.3); Neutrophils Percent Auto 81.4 % (45-73); Platelet Count 825 X10*3/uL (160-400); Red Blood Count 3.54 X10*6/uL (4.20-5.50); Red Cell Distribution Width 15.7 % (11.0-16.0); White Blood Count 9.7 X10*3/uL (4.8-10.8)
--- NOTE | 2021-10-10 16:43 | ED_ITS ---
HPI - Fever General Chief Complaint: Fever Stated Complaint: ?infection Time Seen by Provider: 10/10/21 15:13 Source: patient Mode of arrival: ambulatory Limitations: no limitations History of Present Illness HPI Narrative: Patient comes to the emergency room complaining of fever for 13 days. Patient was discharged from the hospital on September 27 for acute pyelonephritis , patient had an infected kidney stone, need stent placement. Patient states that she was discharged with cefuroxime, patient was compliant with her medication regimen. Patient states that since she left the hospital, she has been spiking fever up to 104.0 F. patient complaining of diffuse body aches, no nausea vomiting, complaining of dysuria and hematuria. Related Data Home Medications Medication Instructions Recorded Confirmed bupropion HCl 100 mg tablet,12 hr 100 mg PO DAILY 02/19/21 10/10/21 sustained-release omeprazole 20 mg capsule,delayed 20 mg PO DAILY PRN 02/19/21 10/10/21 release citalopram 10 mg tablet 1 tab PO BEDTIME 10/10/21 10/10/21 ferrous sulfate 325 mg (65 mg 1 tab PO DAILY 10/10/21 10/10/21 iron) tablet Allergies Allergy/AdvReac Type Severity Reaction Status Date / Time Sulfa (Sulfonamide Allergy Chest Pain Verified 09/24/21 18:31 Antibiotics) cefuroxime AdvReac Fever Verified 10/10/21 15:34 Review of Systems Review of Systems: Constitutional : No Weight loss, complaining of high fever, chills, fatigue and generalized malaise ENT/Mouth : No Hearing loss, No Ear Pain, No Nasal Congestion, No Sinus Pain, No Hoarseness, No sore throat, No Rhinorrhea, No Swallowing Difficulty Eyes: No Eye Pain, No Swelling, No Redness, No Foreign Body, No Discharge, No Vision Changes Cardiovascular : No Chest Pain, No SOB, No Dyspnea on Exertion, No Orthopnea, No Edema, No Palpitations Respiratory : No Cough, No Sputum, No Wheezing, No Smoke Exposure, No Dyspnea Gastrointestinal : No Nausea, No Vomiting, No Diarrhea, No Constipation, complaining of suprapubic pain, No Hematochezia, No Melena Genitourinary : no irregular bleeding, complaining of dysuria, hematuria Musculoskeletal : No joint pain, complaining of diffuse Myalgias, No Joint Swelling Skin : No Skin Lesions, No rash Neuro : No Weakness, No Numbness, No Paresthesias, No Loss of Consciousness, No Dizziness, No Headache Psych : No Anxiety/Panic, No Depression, No SI/HI/AH/VH, No Social Issues, Heme/Lymph: No Bruising, No Bleeding,No Lymphadenopathy Endocrine : No Polyuria, No Polydipsia, No Temperature Intolerance PMF Past Medical History Medical History Constipation Hematuria due to acute cystitis No known health problems Renal and ureteric calculus Social History Social History Household Members: Children [facility] 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 Oriented X3. No acute distress. Weak Eyes: Pupils equal, round and reactive to light. ENT: Pharynx normal. Neck: Normal inspection. Neck supple. No lymph nodes noted. No crepitus CVS: Normal heart rate and rhythm. Pulses normal. Normal S1 and S2 Respiratory: No respiratory distress. Breath sounds normal. No Wheezing. No rales Abdomen: Soft , pain to palpation in suprapubic area, no rebound, no guarding Skin: Skin warm and clammy. Normal skin color. Normal skin turgor. Extremities: No lower extremity edema. No Lacerations. No Rash Neuro: Oriented X 3. No motor deficit. No sensory deficit. Moving all extremities. No slurred speech. CN 2 through 12 grossly intact Psych: calm, cooperative, anxious Course Course Course Narrative: All of labs and imaging are pending. Given the patient's symptoms patient likely have pyelonephritis. Patient has been started on IV fluids and levofloxacin. CT scan shows redemonstration of perinephric fat stranding, a left nephro urate sterile stent in plac I discussed the patient with Dr. Pruitt, patient being admitted e MDM - Fever Lab Data Result diagrams: 10/10/21 16:31 10/10/21 16:31 Labs: Lab Results 10/10/21 10/10/21 10/10/21 Range/Units 16:31 16:31 16:31 WBC 9.7 (4.8-10.8) X10*3/uL RBC 3.54 L (4.20-5.50) X10*6/uL Hgb 8.7 L (12.0-16.0) g/dl Hct 28.4 L (37.0-47.0) % MCV 80.2 (80.0-98.0) fL MCH 24.6 L (27.0-33.0) pg MCHC 30.6 L (31.0-35.0) g/dl RDW 15.7 (11.0-16.0) % Plt Count 825 H D (160-400) X10*3/uL MPV 9.7 (9.4-12.3) fL Immature Gran % (Auto) 1.2 H (0.0-0.4) % Neut % (Auto) 81.4 H (45-73) % Lymph % (Auto) 8.9 L (20-40) % Villalba % (Auto) 7.4 (2-11) % Eos % (Auto) 0.8 (0-4) % Baso % (Auto) 0.3 (0-2) % Lymph # (Auto) 0.9 L (1.2-4.9) X10*3/uL Villalba # (Auto) 0.7 (0.1-1.2) X10*3/uL Eos # (Auto) 0.1 (0.0-0.4) X10*3/uL Baso # (Auto) 0.0 (0.0-0.2) X10*3/uL Abs Immat Gran (auto) 0.12 H (0.00-0.03) X10*3/uL Absolute Neuts (auto) 7.9 (2.0-8.3) x10*3/uL Absolute Nucleated RBC 0.000 (0.0-0.012) X10*3/uL Nucleated RBC % (auto) 0.0 (0.0-0.2) /100WBC Sodium 135 (135-145) mmol/L Potassium 5.3 H D (3.3-5.1) mmol/L Chloride 104 (96-108) mmol/L Carbon Dioxide 23 (22-29) mmol/L Anion Gap 13 (12-20) BUN 9 (9-16) mg/dL Creatinine 0.70 (0.5-1.4) mg/dL Estim Creat Clear Calc 103.1 Estimated GFR > 60 Random Glucose 103 (60-115) mg/dL Lactic Acid 2.7 H* (0.5-2.0) mmol/L Lactic Acid F/U @ 2Hr (0.5-2.0) mmol/L Calcium 10.9 H D (8.4-10.2) mg/dL Urine Color Urine Appearance Urine pH (5.0-8.0) Ur Specific [place] (1.005-1.025) Urine Protein (NEG-TRACE) MG/DL Urine Glucose (UA) (NEG) MG/DL Urine Ketones (NEG) MG/DL Urine Blood (NEG) Urine Nitrite (NEG) Ur Leukocyte Esterase (NEG) Urine RBC (0) /HPF Urine WBC (0-4) /HPF Ur Squamous Epith Cells /LPF Urine Bacteria /LPF COVID-19 ([facility]AMZAH) (Negative) COVID-19 Clin Com Influenza Type A (AMBER) (Negative) Influenza Type B (AMBER) (Negative) Influenza A & B Note 10/10/21 10/10/21 10/10/21 Range/Units 16:50 16:50 16:50 WBC (4.8-10.8) X10*3/uL RBC (4.20-5.50) X10*6/uL Hgb (12.0-16.0) g/dl Hct (37.0-47.0) % MCV (80.0-98.0) fL MCH (27.0-33.0) pg MCHC (31.0-35.0) g/dl RDW (11.0-16.0) % Plt Count (160-400) X10*3/uL MPV (9.4-12.3) fL Immature Gran % (Auto) (0.0-0.4) % Neut % (Auto) (45-73) % Lymph % (Auto) (20-40) % Villalba % (Auto) (2-11) % Eos % (Auto) (0-4) % Baso % (Auto) (0-2) % Lymph # (Auto) (1.2-4.9) X10*3/uL Villalba # (Auto) (0.1-1.2) X10*3/uL Eos # (Auto) (0.0-0.4) X10*3/uL Baso # (Auto) (0.0-0.2) X10*3/uL Abs Immat Gran (auto) (0.00-0.03) X10*3/uL Absolute Neuts (auto) (2.0-8.3) x10*3/uL Absolute Nucleated RBC (0.0-0.012) X10*3/uL Nucleated RBC % (auto) (0.0-0.2) /100WBC Sodium (135-145) mmol/L Potassium (3.3-5.1) mmol/L Chloride (96-108) mmol/L Carbon Dioxide (22-29) mmol/L Anion Gap (12-20) BUN (9-16) mg/dL Creatinine (0.5-1.4) mg/dL Estim Creat Clear Calc Estimated GFR Random Glucose (60-115) mg/dL Lactic Acid (0.5-2.0) mmol/L Lactic Acid F/U @ 2Hr (0.5-2.0) mmol/L Calcium (8.4-10.2) mg/dL Urine Color YELLOW Urine Appearance CLEAR Urine pH 6.5 (5.0-8.0) Ur Specific [place] 1.015 (1.005-1.025) Urine Protein NEG (NEG-TRACE) MG/DL Urine Glucose (UA) NEG (NEG) MG/DL Urine Ketones NEG (NEG) MG/DL Urine Blood 2+ H (NEG) Urine Nitrite NEG (NEG) Ur Leukocyte Esterase TRACE H (NEG) Urine RBC 15-29 H (0) /HPF Urine WBC 1-4 (0-4) /HPF Ur Squamous Epith Cells 2+ /LPF Urine Bacteria NONE /LPF COVID-19 ([facility]AMZAH) Negative (Negative) COVID-19 Clin Com See Note Influenza Type A (AMBER) Negative (Negative) Influenza Type B (AMBER) Negative (Negative) Influenza A & B Note See Note 10/10/21 Range/Units 19:05 WBC (4.8-10.8) X10*3/uL RBC (4.20-5.50) X10*6/uL Hgb (12.0-16.0) g/dl Hct (37.0-47.0) % MCV (80.0-98.0) fL MCH (27.0-33.0) pg MCHC (31.0-35.0) g/dl RDW (11.0-16.0) % Plt Count (160-400) X10*3/uL MPV (9.4-12.3) fL Immature Gran % (Auto) (0.0-0.4) % Neut % (Auto) (45-73) % Lymph % (Auto) (20-40) % Villalba % (Auto) (2-11) % Eos % (Auto) (0-4) % Baso % (Auto) (0-2) % Lymph # (Auto) (1.2-4.9) X10*3/uL Villalba # (Auto) (0.1-1.2) X10*3/uL Eos # (Auto) (0.0-0.4) X10*3/uL Baso # (Auto) (0.0-0.2) X10*3/uL Abs Immat Gran (auto) (0.00-0.03) X10*3/uL Absolute Neuts (auto) (2.0-8.3) x10*3/uL Absolute Nucleated RBC (0.0-0.012) X10*3/uL Nucleated RBC % (auto) (0.0-0.2) /100WBC Sodium (135-145) mmol/L Potassium (3.3-5.1) mmol/L Chloride (96-108) mmol/L Carbon Dioxide (22-29) mmol/L Anion Gap (12-20) BUN (9-16) mg/dL Creatinine (0.5-1.4) mg/dL Estim Creat Clear Calc Estimated GFR Random Glucose (60-115) mg/dL Lactic Acid (0.5-2.0) mmol/L Lactic Acid F/U @ 2Hr 0.7 (0.5-2.0) mmol/L Calcium (8.4-10.2) mg/dL Urine Color Urine Appearance Urine pH (5.0-8.0) Ur Specific [place] (1.005-1.025) Urine Protein (NEG-TRACE) MG/DL Urine Glucose (UA) (NEG) MG/DL Urine Ketones (NEG) MG/DL Urine Blood (NEG) Urine Nitrite (NEG) Ur Leukocyte Esterase (NEG) Urine RBC (0) /HPF Urine WBC (0-4) /HPF Ur Squamous Epith Cells /LPF Urine Bacteria /LPF COVID-19 ([facility]AMZAH) (Negative) COVID-19 Clin Com Influenza Type A (AMBER) (Negative) Influenza Type B (AMBER) (Negative) Influenza A & B Note Imaging Data CT scan - abdomen: Radiologist's impression: FINDINGS: LUNG BASES: Unremarkable.? ABDOMINAL AND PELVIC WALL:? Unremarkable.? LIVER AND BILIARY TREE: Unremarkable.? GALLBLADDER: Unremarkable.? PANCREAS: Unremarkable.? SPLEEN: Unremarkable.? ADRENAL GLANDS: Unremarkable.? KIDNEYS AND URETERS: Redemonstration of perinephric fat stranding and edematous appearance of the left kidney which could be seen in the setting of pyelonephritis however lack of intravenous contrast limits evaluation of the parenchyma and evaluation for abscess. Punctate nonobstructing bilateral renal stones measuring up to 2 mm in a nonobstructing left lower pole renal stone. A left nephroureteral stent in place with similar urothelial thickening surrounding the left renal pelvis. No hydronephrosis.? GASTROINTESTINAL TRACT: Large and small bowel are unremarkable. Appendix is not definitively identified however there are no secondary findings to suggest acute appendicitis. VASCULAR: Unremarkable. LYMPH NODES/PERITONEUM: No lymphadenopathy. FREE FLUID: None. BLADDER: Unremarkable.? PELVIC VISCERA: Unremarkable. OSSEOUS STRUCTURES: Unremarkable.? CT/CT abdomen pelvis wo con IMPRESSION: ? Redemonstration of perinephric fat stranding and edematous appearance of the left kidney which could be seen in the setting of pyelonephritis however lack of intravenous contrast limits evaluation of the parenchyma and evaluation for abscess. ? A left nephroureteral stent in place with similar urothelial thickening surrounding the left renal pelvis, which may be infectious or inflammatory. No hydronephrosis.? ? Punctate nonobstructing bilateral renal stones measuring up to 2 mm in a nonobstructing left lower pole renal stone. Discharge Plan Discharge Clinical Impression: Pyelonephritis Patient Disposition: Admitted As Inpatient Prescriptions: No Action citalopram 10 mg tablet 1 tab PO BEDTIME 0RF ferrous sulfate 325 mg (65 mg iron) tablet 1 tab PO DAILY 0RF omeprazole 20 mg capsule,delayed release(DR/EC) 20 mg PO DAILY PRN (Reason: Dyspepsia) 0RF bupropion HCl 100 mg tablet sustained-release 12 hr 100 mg PO DAILY 0RF
[2021-10-10] MEDS: Ibuprofen 600 MG TABLET PO (16:48)
[2021-10-10 16:55] LABS: Lactic Acid 2.7 mmol/L (0.5-2.0)
[2021-10-10 16:56] LABS: Anion Gap 13 (12-20); Blood Urea Nitrogen 9 mg/dL (9-16); Calcium 10.9 mg/dL (8.4-10.2); Carbon Dioxide 23 mmol/L (22-29); Chloride 104 mmol/L (96-108); Creatinine Clr Calc Pharmacy 103.1; Estimated Glomerular Filt Rate > 60; Glucose Random 103 mg/dL (60-115); Potassium 5.3 mmol/L (3.3-5.1); Sodium 135 mmol/L (135-145)
[2021-10-10 17:25] LABS: Appearance Urine CLEAR; Color Urine YELLOW; Glucose Urine UA NEG (NEG); Leukocyte Esterase Urine TRACE (NEG); Nitrite Urine NEG (NEG); PH 6.5 (5.0-8.0); Specific Gravity - Urine 1.015 (1.005-1.025); UACC Culture Trigger YES; Urine Blood 2+ (NEG); Urine Ketones NEG (NEG); Urine Protein NEG (NEG-TRACE)
[2021-10-10 17:29] LABS: COVID-19 Test Negative (Negative); IDNOW Serial# 16C4AD1C
[2021-10-10 17:30] LABS: Influenza A Negative (Negative); Influenza B2 Negative (Negative)
--- NOTE | 2021-10-10 17:31 | PHA.MEDREC ---
Pharmacy Consult ? Medication Reconciliation Pharmacy has completed the medication reconciliation. Patient states she recently stated taking an iron supplement about 2 days ago. She was also prescribed oxycodone and Macrobid but didn't take either. The patient was taking concerta up until her last admission which she was discharged from on 09/27.
[2021-10-10] MEDS: levoFLOXacin/D5W 500 MG/100 ML PIGGYBACK 100 MG IV (17:33)
[2021-10-10] MEDS: 0.9 % Sodium Chloride 2,000 ML 999 ML IVCONT (17:48)
[2021-10-10 17:52] LABS: Squamous Epithelial Cell Urine 2+ /LPF
[2021-10-10 18:39] LABS: Reflex Lactate? Lactic Acid Added
[2021-10-10] MEDS: ondansetron HCL 4 MG/2 ML VIAL IVPUSH (19:24)
[2021-10-10 19:28] LABS: ~Lactic Acid-LAB USE ONLY 0.7 mmol/L (0.5-2.0)
--- NOTE | 2021-10-10 22:33 | PM.IMHP ---
History of Present Illness Date of Service: 10/10/21 Chief Complaint: Left flank pain 46-year-old female with a past medical history of anxiety, depression, ADHD, migraine headaches, question history of hyperparathyroidism, hypercalcemia, bilateral kidney stones, anemia, GERD, history of IV drug abuse in remission; recently admitted to the hospital for left flank pain secondary to kidney stone/pyelonephritis, discharged on last Thursday on p.o. antibiotics and status post stent placement; presented to the hospital with a chief complaint of left flank pain. Patient reported that she has been having left flank pain since the discharge from the hospital on last Thursday she continued to have fevers and left flank pain. Mentions she has been taking her home at antibiotic as per prescription; but continued to have fevers; also mentioned that she try to make a follow-up appoint with Dr. Belcher but unsuccessful; has seen the PCP who suggested her to go to the ER for further evaluation. Patient also mentioned that she had mild headache located on the left side of the face, has photophobia and nausea. Patient also reported chest discomfort, pressure-like in nature, located in the center of the chest, no associated lightheadedness dizziness or diaphoresis. Patient also reported an episode of gross hematuria this morning. Review of all other systems is negative except mentioned above ER course: Per ER team, patient urinalysis showed RBC 15-29, WBC 1-4, urine nitrite negative; CBC within the normal limits; on the blood chemistry noted to have potassium 5.3, lactate of 2.7, calcium of 10.9; CT abdomen pelvis showed redemonstration of the perinephric fat stranding, edematous appearance of the left kidney, pyelonephritis, left nephroureteral stent in place with similar urothelial thickening surrounding the left renal pelvis; no hydronephrosis; punctate nonobstructing bilateral kidney stones measuring up to 2 mm. Patient was given Levaquin. Admitted for further management [facility] Medical History Constipation Hematuria due to acute cystitis No known health problems Renal and ureteric calculus Pertinent family history: Mother had breast cancer Social History Household Members: Children [facility] Are you a primary medical care evaluation specialist to a significant other at home: Yes Do you presently have visiting nurse or other home services: No Alcohol intake: current Alcohol intake frequency: a few times a month Patient Tobacco Use Status: Current someday Tobacco user Tobacco use type: Cigarette Advance Directives: No Advance Directives Information Provided: No service: No Current occupational status: unemployed Meds Allergies Allergy/AdvReac Type Severity Reaction Status Date / Time Sulfa (Sulfonamide Allergy Chest Pain Verified 09/24/21 18:31 Antibiotics) cefuroxime AdvReac Fever Verified 10/10/21 15:34 Active Medications: Current Medications Famotidine (Famotidine/Pf 20 Mg/2 Ml Vial) 20 mg IVPUSH BID DANIAL Hydromorphone HCl (Hydromorphone Hcl 1 Mg/Ml Syringe) 0.6 mg IVPUSH Q6H PRN; Protocol PRN Reason: Breakthrough Pain Levofloxacin (Levaquin) 750 mg in 150 mls @ 100 mls/hr IV Q24H DANIAL Ibuprofen (Ibuprofen 400 Mg Tablet) 400 mg PO Q6H PRN PRN Reason: pain/fever Non-Formulary Medication (Bupropion Hcl) 100 mg PO DAILY DANIAL Non-Formulary Medication (Citalopram) 1 tab PO BEDTIME DANIAL Non-Formulary Medication (Ferrous Sulfate) 1 tab PO DAILY DANIAL Omeprazole (Omeprazole 20 Mg Capsule.Dr) 20 mg PO DAILY PRN PRN Reason: Dyspepsia Pharmacy Consult (Consult Rx Perform Med Rec) 1 each MISCELLANE ONCE PRN PRN Reason: Consult order Home Medications Medication Instructions Recorded Confirmed Last Taken Type bupropion HCl 100 mg tablet,12 hr 100 mg PO DAILY 02/19/21 10/10/21 10/10/21 History sustained-release omeprazole 20 mg capsule,delayed 20 mg PO DAILY PRN 02/19/21 10/10/21 10/08/21 History release citalopram 10 mg tablet 1 tab PO BEDTIME 10/10/21 10/10/21 10/09/21 History ferrous sulfate 325 mg (65 mg 1 tab PO DAILY 10/10/21 10/10/21 10/10/21 History iron) tablet Physical Exam Vital Signs and Narrative: Vital Signs: Last Vital Signs Temp 98.4 F 10/10/21 19:43 Pulse 72 10/10/21 22:21 Resp 12 10/10/21 22:21 BP 98/63 10/10/21 22:21 Pulse Ox 97 10/10/21 22:21 BMI result Body Mass Index 20.7 Gen: Appears be in no acute distress HEENT: NCAT, Moist mucosa. Pulmonary: Vesicular breath sounds, fair air entry CVS: Normal S1-S2 Abdomen: BS+, Soft, Nontender; tender on the left flank; no guarding no rigidity Extremities: Warm well perfused Neuro: Alert and awake. Results Labs CBC and Chem 7: 10/10/21 16:31 10/10/21 16:31 Labs: Laboratory Results - last 24 hr 10/10/21 10/10/21 10/10/21 16:31 16:31 16:31 MCV 80.2 MCH 24.6 L MCHC 30.6 L RDW 15.7 Plt Count 825 H D MPV 9.7 Immature Gran % (Auto) 1.2 H Neut % (Auto) 81.4 H Lymph % (Auto) 8.9 L [place] % (Auto) 7.4 Eos % (Auto) 0.8 Baso % (Auto) 0.3 Lymph # (Auto) 0.9 L [place] # (Auto) 0.7 Eos # (Auto) 0.1 Baso # (Auto) 0.0 Abs Immat Gran (auto) 0.12 H Absolute Neuts (auto) 7.9 Absolute Nucleated RBC 0.000 Nucleated RBC % (auto) 0.0 Anion Gap 13 Estim Creat Clear Calc 103.1 Estimated GFR > 60 Random Glucose 103 Lactic Acid 2.7 H* Lactic Acid F/U @ 2Hr Calcium 10.9 H D Urine Color Urine Appearance Urine pH Ur Specific [place] Urine Protein Urine Glucose (UA) Urine Ketones Urine Blood Urine Nitrite Ur Leukocyte Esterase Urine RBC Urine WBC Ur Squamous Epith Cells Urine Bacteria COVID-19 (HAMZAH) COVID-19 Clin Com Influenza Type A (AMBER) Influenza Type B (AMBER) Influenza A & B Note 10/10/21 10/10/21 10/10/21 16:50 16:50 16:50 MCV MCH MCHC RDW Plt Count MPV Immature Gran % (Auto) Neut % (Auto) Lymph % (Auto) [place] % (Auto) Eos % (Auto) Baso % (Auto) Lymph # (Auto) [place] # (Auto) Eos # (Auto) Baso # (Auto) Abs Immat Gran (auto) Absolute Neuts (auto) Absolute Nucleated RBC Nucleated RBC % (auto) Anion Gap Estim Creat Clear Calc Estimated GFR Random Glucose Lactic Acid Lactic Acid F/U @ 2Hr Calcium Urine Color YELLOW Urine Appearance CLEAR Urine pH 6.5 Ur Specific [place] 1.015 Urine Protein NEG Urine Glucose (UA) NEG Urine Ketones NEG Urine Blood 2+ H Urine Nitrite NEG Ur Leukocyte Esterase TRACE H Urine RBC 15-29 H Urine WBC 1-4 Ur Squamous Epith Cells 2+ Urine Bacteria NONE COVID-19 (HAMZAH) Negative COVID-19 Clin Com See Note Influenza Type A (AMBER) Negative Influenza Type B (AMBER) Negative Influenza A & B Note See Note 10/10/21 19:05 MCV MCH MCHC RDW Plt Count MPV Immature Gran % (Auto) Neut % (Auto) Lymph % (Auto) [place] % (Auto) Eos % (Auto) Baso % (Auto) Lymph # (Auto) [place] # (Auto) Eos # (Auto) Baso # (Auto) Abs Immat Gran (auto) Absolute Neuts (auto) Absolute Nucleated RBC Nucleated RBC % (auto) Anion Gap Estim Creat Clear Calc Estimated GFR Random Glucose Lactic Acid Lactic Acid F/U @ 2Hr 0.7 Calcium Urine Color Urine Appearance Urine pH Ur Specific [place] Urine Protein Urine Glucose (UA) Urine Ketones Urine Blood Urine Nitrite Ur Leukocyte Esterase Urine RBC Urine WBC Ur Squamous Epith Cells Urine Bacteria COVID-19 (HAMZAH) COVID-19 Clin Com Influenza Type A (AMBER) Influenza Type B (AMBER) Influenza A & B Note Imaging Radiologist's Impressions: Impressions Chest X-Ray 10/10/21 17:12 FINDINGS/IMPRESSION: Clear lungs. No pneumothorax. No pleural effusion. Normal cardiomediastinal silhouette. Abdomen/Pelvis CT 10/10/21 17:23 IMPRESSION: Redemonstration of perinephric fat stranding and edematous appearance of the left kidney which could be seen in the setting of pyelonephritis however lack of intravenous contrast limits evaluation of the parenchyma and evaluation for abscess. A left nephroureteral stent in place with similar urothelial thickening surrounding the left renal pelvis, which may be infectious or inflammatory. No hydronephrosis. Punctate nonobstructing bilateral renal stones measuring up to 2 mm in a nonobstructing left lower pole renal stone. Assessment and Plan (1) Pyelonephritis: Status: Acute Plan 46-year-old female with a past medical history of anxiety, depression, ADHD, migraine headaches, question history of hyperparathyroidism, hypercalcemia, bilateral kidney stones, anemia, GERD, history of IV drug abuse in remission; recently admitted to the hospital for left flank pain secondary to kidney stone/pyelonephritis, discharged on last Thursday on p.o. antibiotics and status post stent placement; presented to the hospital with a chief complaint of left flank pain. Pyelonephritis: Patient's recent urine cultures grew E coli pansensitive. Patient did not improve symptomatically with PSF exam as outpatient-reports causing fevers Will keep the patient on Levaquin Id consult for recurrent fevers Renal calculi-nonobstructing; status post stent placement. Urology consult with Dr. Belcher for further recommendations given continued pain. Will give the patient on anti-inflammatory medications like ibuprofen. Pain control Hematuria: Likely in the setting of renal calculi/pyelonephritis. Urology follow-up. Currently improved. Chest pain: Atypical in nature. EKG nonischemic. Will obtain cardiac enzymes. D-dimer. Hypercalcemia: Patient calcium level noted to be 10.9. On IV fluids. Monitor calcium levels. Headaches: Patient has known history of migraine headaches. Dilaudid/ibuprofen p.r.n. History of anxiety/depression/ADHD: Continue home bupropion, citalopram DVT prophylaxis: Lovenox Code status: Full code Quality Stroke Does the patient have a stroke diagnosis?: No VTE Prior VTE?: No VTE Risk Level:: Medical - moderate - high VTE Device Contraindication: Treatment Not Indicated VTE Drug Contraindication: N/A - Med Ordered
[2021-10-10] MEDS: HYDROmorphone HCl 1 MG/ML SYRINGE 0.6 MG IVPUSH (22:50)
[2021-10-10] MEDS: Famotidine/PF 20 MG/2 ML VIAL IVPUSH (22:53)
[2021-10-10] MEDS: Enoxaparin Sodium 40 MG/0.4 ML SYRINGE SUBCUT (23:02)
[2021-10-10 23:03] LABS: Troponin-I High Sensitivity < 3.5 ng/L (<3.5-17.0)
[2021-10-10] MEDS: 0.9 % Sodium Chloride 1,000 ML 100 ML IVCONT (23:03)
[2021-10-10 23:14] LABS: Troponin-I High Sensitivity < 3.5 ng/L (<3.5-17.0)
[2021-10-10 23:17] LABS: D Dimer High Sensitivity 358 NG/ML
--- NOTE | 2021-10-10 23:30 | PC.NURSE ---
pt given ice chips, at bedside
[2021-10-11] VITALS (7 sets, daily range): BP systolic 102–132; BP diastolic 60–74; PULSE 62–78; RESP 16–20; TEMP 36.1–37.1; O2SAT 97–99; BMI 22.7
--- NOTE | 2021-10-11 00:16 | PC.NURSE ---
[facility] RN unable to take report @ this time.
[2021-10-11] MEDS: Ibuprofen 400 MG TABLET PO ×2 (05:02→21:38)
[2021-10-11] MEDS: Omeprazole 20 MG CAPSULE.DR PO (05:10)
[2021-10-11 07:06] LABS: MANUAL DIFF FLAG NO
[2021-10-11 07:10] LABS: Basophils Percent Auto 0.4 % (0-2); Eosinophils Absolute Auto 0.1 X10*3/uL (0.0-0.4); Eosinophils Percent Auto 1.2 % (0-4); Hematocrit 26.4 % (37.0-47.0); Hemoglobin 7.9 g/dl (12.0-16.0); Imm Gran Abs Auto 0.15 X10*3/uL (0.00-0.03); Imm Gran Pct Auto 2.2 % (0.0-0.4); Lymphocytes Absolute Auto 1.1 X10*3/uL (1.2-4.9); Mean Corpuscular HGB Conc 29.9 g/dl (31.0-35.0); Mean Corpuscular Hemoglobin 24.9 pg (27.0-33.0); Mean Corpuscular Volume 83.3 fL (80.0-98.0); Mean Platelet Volume 9.7 fL (9.4-12.3); Monocytes Absolute Auto 0.8 X10*3/uL (0.1-1.2); Monocytes Percent Auto 11.8 % (2-11); Neutrophils Absolute Auto 4.6 x10*3/uL (2.0-8.3); Neutrophils Percent Auto 68.4 % (45-73); Platelet Count 671 X10*3/uL (160-400); Red Blood Count 3.17 X10*6/uL (4.20-5.50); Red Cell Distribution Width 15.7 % (11.0-16.0); White Blood Count 6.7 X10*3/uL (4.8-10.8)
[2021-10-11 07:28] LABS: Anion Gap 10 (12-20); Blood Urea Nitrogen 5 mg/dL (9-16); Carbon Dioxide 24 mmol/L (22-29); Chloride 109 mmol/L (96-108); Creatinine Clr Calc Pharmacy 119.3; Estimated Glomerular Filt Rate > 60; Glucose Random 101 mg/dL (60-115); Potassium 4.5 mmol/L (3.3-5.1); Sodium 138 mmol/L (135-145)
[2021-10-11 07:35] LABS: Calcium 9.6 mg/dL (8.4-10.2)
[2021-10-11] MEDS: HYDROmorphone HCl 1 MG/ML SYRINGE 0.6 MG IVPUSH ×2 (09:00→16:30)
[2021-10-11] MEDS: Famotidine/PF 20 MG/2 ML VIAL IVPUSH ×2 (09:00→21:38)
[2021-10-11] MEDS: buPROPion HCl XL 150 MG TAB.ER.24H PO (09:01)
[2021-10-11] MEDS: 0.9 % Sodium Chloride Flush 3 ML SYRINGE IVFLUSH ×2 (09:02→16:37)
[2021-10-11] MEDS: 0.9 % Sodium Chloride 1,000 ML 100 ML IVCONT ×2 (09:02→18:58)
--- NOTE | 2021-10-11 09:51 | MHC.CM.PN ---
CM met with Patient and her Ficonstanza at bedside. Patient lives in a condo with her two Sons ages 2 and 17 years of age. Katie/Fantasma is a Orthotic And Prosthetic Technician and home on weekends. Fantasma's Mother is watching Patient's children. Patient has a history of IVDA/documented to be in remission. Home no services is Patient's goal and CM has initiated and will follow for dc planning. Patient has received Pfizer vax X3 and PCP is DR. Syed Wilson.
--- NOTE | 2021-10-11 10:01 | HO.PM.IMPN ---
Subjective Subjective Date of Service: 10/11/21 Interval History: cc: flank pain and fevers interval history:still with pain, fevers improved Cardiovascular Cardiovascular: Reports no additional cardiovascular complaints Respiratory Respiratory: Reports no additional respiratory complaints Physical Exam Vital Signs: Vital Signs: Last Vital Signs Temp 98.3 F 10/11/21 07:38 Pulse 68 10/11/21 07:38 Resp 20 10/11/21 07:38 BP 102/60 10/11/21 07:38 Pulse Ox 98 10/11/21 07:38 BMI result Body Mass Index 22.7 General: AO X 3, in distress Resp: CTA bilateral, no accessory muscles used CVS: S1,S2,RRR GI: soft, non tender, non distended Neuro: motor grossly intact, alert Psych: appropriate affect, appropriate insight left flank tender Objective Data Active Medications Benzonatate (Benzonatate 100 Mg Capsule) 100 mg PO TID PRN PRN Reason: Cough Bupropion HCl (Bupropion Hcl Xl 150 Mg Tab.Er.24h) 150 mg PO DAILY COUNTS INCLUDE 234 BEDS AT THE [facility] Last Admin: 10/11/21 09:01 Dose: 150 mg Documented by: HEMANTH Docusate Sodium (Docusate Sodium 100 Mg Capsule) 100 mg PO DAILY PRN PRN Reason: Constipation Enoxaparin Sodium (Enoxaparin Sodium 40 Mg/0.4 Ml Syringe) 40 mg SUBCUT Q24H COUNTS INCLUDE 234 BEDS AT THE [facility] Last Admin: 10/10/21 23:02 Dose: 40 mg Documented by: MAURICIO Escitalopram Oxalate (Escitalopram Oxalate 5 Mg Tablet) 5 mg PO BEDTIME COUNTS INCLUDE 234 BEDS AT THE [facility] Famotidine (Famotidine/Pf 20 Mg/2 Ml Vial) 20 mg IVPUSH BID COUNTS INCLUDE 234 BEDS AT THE [facility] Last Admin: 10/11/21 09:00 Dose: 20 mg Documented by: HEMANTH Ferrous Sulfate (Ferrous Sulfate 324 Mg Tablet.Dr) 324 mg PO DAILY COUNTS INCLUDE 234 BEDS AT THE [facility] Last Admin: 10/11/21 09:02 Dose: Not Given Documented by: HEMANTH Non-Admin Reason: Patient Refused Hydromorphone HCl (Hydromorphone Hcl 1 Mg/Ml Syringe) 0.6 mg IVPUSH Q6H PRN; Protocol PRN Reason: Breakthrough Pain Last Admin: 10/11/21 09:00 Dose: 0.6 mg Documented by: HEMNATH Levofloxacin (Levaquin) 750 mg in 150 mls @ 100 mls/hr IV Q24H COUNTS INCLUDE 234 BEDS AT THE [facility] Sodium Chloride (Ns) 1,000 mls @ 100 mls/hr IVCONT .Q10H COUNTS INCLUDE 234 BEDS AT THE [facility] Last Admin: 10/11/21 09:02 Dose: 100 mls/hr Documented by: HEMANTH Ibuprofen (Ibuprofen 400 Mg Tablet) 400 mg PO Q6H PRN PRN Reason: pain/fever Last Admin: 10/11/21 05:02 Dose: 400 mg Documented by: TIFFANY Melatonin (Melatonin 3 Mg Tablet) 6 mg PO BEDTIME PRN PRN Reason: Insomnia Omeprazole (Omeprazole 20 Mg Capsule.Dr) 20 mg PO DAILY@0630 COUNTS INCLUDE 234 BEDS AT THE [facility] Last Admin: 10/11/21 05:10 Dose: 20 mg Documented by: TIFFANY Ondansetron HCl (Ondansetron Hcl 4 Mg/2 Ml Vial) 4 mg IVPUSH Q6H PRN PRN Reason: nausea Pharmacy Consult (Consult Rx Perform Med Rec) 1 each MISCELLANE ONCE PRN PRN Reason: Consult order Senna (Sennosides 8.6 Mg Tablet) 17.2 mg PO BEDTIME PRN PRN Reason: Constipation Sodium Chloride (0.9 % Sodium Chloride Flush 3 Ml Syringe) 3 ml IVFLUSH QSHIFT COUNTS INCLUDE 234 BEDS AT THE [facility] Last Admin: 10/11/21 09:02 Dose: 3 ml Documented by: HEMANTH Labs CBC & Chem 7: 10/11/21 06:55 10/11/21 06:55 Labs: Laboratory Results - last 24 hr 10/10/21 10/10/21 10/10/21 16:31 16:31 16:31 MCV 80.2 MCH 24.6 L MCHC 30.6 L RDW 15.7 Plt Count 825 H D MPV 9.7 Immature Gran % (Auto) 1.2 H Neut % (Auto) 81.4 H Lymph % (Auto) 8.9 L [place] % (Auto) 7.4 Eos % (Auto) 0.8 Baso % (Auto) 0.3 Lymph # (Auto) 0.9 L [place] # (Auto) 0.7 Eos # (Auto) 0.1 Baso # (Auto) 0.0 Abs Immat Gran (auto) 0.12 H Absolute Neuts (auto) 7.9 Absolute Nucleated RBC 0.000 Nucleated RBC % (auto) 0.0 D-Dimer High Sensitivty Anion Gap 13 Estim Creat Clear Calc 103.1 Estimated GFR > 60 Random Glucose 103 Lactic Acid 2.7 H* Lactic Acid F/U @ 2Hr Calcium 10.9 H D Troponin I High Sens Urine Color Urine Appearance Urine pH Ur Specific [employer] Urine Protein Urine Glucose (UA) Urine Ketones Urine Blood Urine Nitrite Ur Leukocyte Esterase Urine RBC Urine WBC Ur Squamous Epith Cells Urine Bacteria COVID-19 (HAMZAH) COVID-19 Clin Com Influenza Type A (AMBER) Influenza Type B (AMBER) Influenza A & B Note 10/10/21 10/10/21 10/10/21 16:31 16:50 16:50 MCV MCH MCHC RDW Plt Count MPV Immature Gran % (Auto) Neut % (Auto) Lymph % (Auto) [place] % (Auto) Eos % (Auto) Baso % (Auto) Lymph # (Auto) [place] # (Auto) Eos # (Auto) Baso # (Auto) Abs Immat Gran (auto) Absolute Neuts (auto) Absolute Nucleated RBC Nucleated RBC % (auto) D-Dimer High Sensitivty Anion Gap Estim Creat Clear Calc Estimated GFR Random Glucose Lactic Acid Lactic Acid F/U @ 2Hr Calcium Troponin I High Sens < 3.5 Urine Color Urine Appearance Urine pH Ur Specific [employer] Urine Protein Urine Glucose (UA) Urine Ketones Urine Blood Urine Nitrite Ur Leukocyte Esterase Urine RBC Urine WBC Ur Squamous Epith Cells Urine Bacteria COVID-19 (HAMZAH) Negative COVID-19 Clin Com See Note Influenza Type A (AMBER) Negative Influenza Type B (AMBER) Negative Influenza A & B Note See Note 10/10/21 10/10/21 10/10/21 16:50 19:05 22:45 MCV MCH MCHC RDW Plt Count MPV Immature Gran % (Auto) Neut % (Auto) Lymph % (Auto) [place] % (Auto) Eos % (Auto) Baso % (Auto) Lymph # (Auto) [place] # (Auto) Eos # (Auto) Baso # (Auto) Abs Immat Gran (auto) Absolute Neuts (auto) Absolute Nucleated RBC Nucleated RBC % (auto) D-Dimer High Sensitivty Anion Gap Estim Creat Clear Calc Estimated GFR Random Glucose Lactic Acid Lactic Acid F/U @ 2Hr 0.7 Calcium Troponin I High Sens < 3.5 Urine Color YELLOW Urine Appearance CLEAR Urine pH 6.5 Ur Specific [employer] 1.015 Urine Protein NEG Urine Glucose (UA) NEG Urine Ketones NEG Urine Blood 2+ H Urine Nitrite NEG Ur Leukocyte Esterase TRACE H Urine RBC 15-29 H Urine WBC 1-4 Ur Squamous Epith Cells 2+ Urine Bacteria NONE COVID-19 (HAMZAH) COVID-19 Clin Com Influenza Type A (AMBER) Influenza Type B (AMBER) Influenza A & B Note 10/10/21 10/11/21 10/11/21 22:45 06:55 06:55 MCV 83.3 MCH 24.9 L MCHC 29.9 L RDW 15.7 Plt Count 671 H MPV 9.7 Immature Gran % (Auto) 2.2 H Neut % (Auto) 68.4 Lymph % (Auto) 16.0 L [place] % (Auto) 11.8 H Eos % (Auto) 1.2 Baso % (Auto) 0.4 Lymph # (Auto) 1.1 L [place] # (Auto) 0.8 Eos # (Auto) 0.1 Baso # (Auto) 0.0 Abs Immat Gran (auto) 0.15 H Absolute Neuts (auto) 4.6 Absolute Nucleated RBC 0.000 Nucleated RBC % (auto) 0.0 D-Dimer High Sensitivty 358 Anion Gap 10 L Estim Creat Clear Calc 119.3 Estimated GFR > 60 Random Glucose 101 Lactic Acid Lactic Acid F/U @ 2Hr Calcium 9.6 D Troponin I High Sens Urine Color Urine Appearance Urine pH Ur Specific [employer] Urine Protein Urine Glucose (UA) Urine Ketones Urine Blood Urine Nitrite Ur Leukocyte Esterase Urine RBC Urine WBC Ur Squamous Epith Cells Urine Bacteria COVID-19 (HAMZAH) COVID-19 Clin Com Influenza Type A (AMBER) Influenza Type B (AMBER) Influenza A & B Note Microbiology Microbiology Results: Microbiology 10/10/21 18:00 Urine Culture - Preliminary Urine clean catch - Urine [place] top No growth to date. Assessment and Plan (1) Pyelonephritis: Status: Acute Plan [id number] presented with fevers and flank pain severe sepsis (POA) due to acute recurrent pyelonephritis with history of nephrolithiasis and primary hyperparathyroidism levaquin, follow up cultures, pain control, eval, outpatient endocrine eval chronic iron defeciency and inflammatory anemia continue iron supplements outpatient follow up mood disorder lexapro, wellbutrin dvt prophylaxis - lovenox reason for continued hospitalization: was severely septic, will need atleast 24-48 hrs deferevesence and cultures prior to discharge and changing to po abx, also pending eval. Quality Stroke Does the patient have a stroke diagnosis?: No VTE Prior VTE?: No VTE Risk Level:: Medical - moderate - high VTE Device Contraindication: Treatment Not Indicated VTE Drug Contraindication: N/A - Med Ordered
[2021-10-11] MEDS: levoFLOXacin/D5W 750 MG/150 ML PIGGYBACK 100 MG IV (16:30)
[2021-10-11] MEDS: Phenazopyridine HCL 200 MG TABLET PO (18:53)
[2021-10-11] MEDS: Escitalopram Oxalate 5 MG TABLET PO (21:38)
[2021-10-11] MEDS: Enoxaparin Sodium 40 MG/0.4 ML SYRINGE SUBCUT (21:38)
[2021-10-12 03:13] VITALS: BP 112/69; PULSE 83; RESP 16; TEMP 36.4; O2SAT 96
[2021-10-12] MEDS: 0.9 % Sodium Chloride 1,000 ML 100 ML IVCONT (04:49)
[2021-10-12] MEDS: Omeprazole 20 MG CAPSULE.DR PO (06:20)
[2021-10-12] MEDS: Docusate Sodium 100 MG CAPSULE PO (06:25)
[2021-10-12 06:31] LABS: Hematocrit 26.9 % (37.0-47.0); Hemoglobin 8.1 g/dl (12.0-16.0); Mean Corpuscular HGB Conc 30.1 g/dl (31.0-35.0); Mean Corpuscular Hemoglobin 24.9 pg (27.0-33.0); Mean Corpuscular Volume 82.8 fL (80.0-98.0); Mean Platelet Volume 9.7 fL (9.4-12.3); Platelet Count 683 X10*3/uL (160-400); Red Blood Count 3.25 X10*6/uL (4.20-5.50); White Blood Count 8.3 X10*3/uL (4.8-10.8)
[2021-10-12 06:44] LABS: Anion Gap 12 (12-20); Blood Urea Nitrogen 5 mg/dL (9-16); Calcium 10.1 mg/dL (8.4-10.2); Carbon Dioxide 23 mmol/L (22-29); Chloride 108 mmol/L (96-108); Creatinine Clr Calc Pharmacy 117.5; Estimated Glomerular Filt Rate > 60; Glucose Fasting 97 mg/dL (60-99); Potassium 4.4 mmol/L (3.3-5.1); Sodium 139 mmol/L (135-145)
[2021-10-12 07:28] VITALS: BP 127/68; PULSE 71; RESP 17; TEMP 35.8; O2SAT 100
--- NOTE | 2021-10-12 09:09 | ECG_ITS ---
Test Reason : CHEST PAIN Blood Pressure : / mmHG Vent. Rate : 063 BPM Atrial Rate : 063 BPM P-R Int : 160 ms QRS Dur : 086 ms QT Int : 418 ms P-R-T Axes : 046 063 057 degrees QTc Int : 427 ms Normal sinus rhythm Normal ECG When compared with ECG of 23-SEP-2021 23:18, Vent. rate has decreased BY 37 BPM Non-specific change in ST segment in Anterior leads Nonspecific T wave abnormality no longer evident in Anterior leads Referred By: Christina Barajas Electronically Signed By:Micheal Wagner
--- NOTE | 2021-10-12 10:26 | P.DS_ITS ---
DS: Providers Provider Date of Service: 10/12/21 Date of admission: 10/10/21 22:32 Primary care physician: Syed Wilson MD Consults: 10/10/21 22:29 Consult to Urology Routine Consulting Provider: Arturo Belcher Reason for consultation: kidney stone s/p stent p/w pain/fevers DS: Diagnosis Discharge Diagnosis (1) Pyelonephritis: Status: Acute DS: Summary Hospital Course Hospital Course: from initial hpi: Chief Complaint: Left flank pain 46-year-old female with a past medical history of anxiety, depression, ADHD, migraine headaches, question history of hyperparathyroidism, hypercalcemia, bi lateral kidney stones, anemia, GERD, history of IV drug abuse in remission; recently admitted to the hospital for left flank pain secondary to kidney stone/pyelonephritis, discharged on last Thursday on p.o. antibiotics and status post stent placement; presented to the hospital with a chief complaint of left flank pain.? Patient reported that she has been having left flank pain since the discharge f rom the hospital on last Thursday she continued to have fevers and left flank pain. Mentions she has been taking her home at antibiotic as per prescription; but continued to have fevers; also mentioned that she try to make a follow-up appoint with Dr. Belcher but unsuccessful; has seen the PCP who suggested her to go to the ER for further evaluation.? Patient also mentioned that she had mild headache located on the left side of the face, has photophobia and nausea.? Patient also reported chest discomfort, pressure-like in nature, located in the center of the chest, no associated lightheadedness dizziness or diaphoresis. Patient also reported an episode of gross hematuria this morning. Review of all other systems is negative except mentioned above ER course: Per ER team, patient urinalysis showed RBC 15-29, WBC 1-4, urine nitrite negative; CBC within the normal limits; on the blood chemistry noted to have potassium 5.3, lactate of 2.7, calcium of 10.9; CT abdomen pelvis showed redemonstration of the perinephric fat stranding, edematous appearance of the left kidney, pyelonephritis, left nephroureteral stent in place with similar urothelial thickening surrounding the left renal pelvis; no hydronephrosis; punctate nonobstructing bilateral kidney stones measuring up to 2 mm.? Patient was given Levaquin.? Admitted for further management hospital course: patient was admitted for severe sepsis due to acute recurrent left pyelonephritis with history of nephrolithiasis, ureteral stent, and primary hyperparathyroidism. she was given levaquin, sepsis resolved, cultures negative, removed stent at bedside. she will continue 2 weeks of po levaquin and should follow up with endocrine and . for her chronic iron defeciency and inflammatory anemia she should continue iron supplements and follow up with pcp. for her mood disronder she will continue lexapro and wellbutrin. Time Spent with Patient Time attestation: Total time spent providing and/or coordinating discharge services: Discharge coordination time: Greater than 30 minutes Quality: Safe Use of Opioids Does Pt have an Active Cancer Diagnosis on the Problem List?: No Quality: Stroke Does the patient have a stroke diagnosis?: No Physical Exam Vital Signs: Vital Signs: Last Vital Signs Temp 96.5 F L 10/12/21 07:28 Pulse 71 10/12/21 07:28 Resp 17 10/12/21 07:28 BP 127/68 10/12/21 07:28 Pulse Ox 100 10/12/21 07:28 BMI result Body Mass Index 22.7 General: AO X 3, no acute distress Resp: CTA bilateral, no accessory muscles used CVS: S1,S2,RRR GI: soft, non tender, non distended Neuro: motor grossly intact, alert Psych: appropriate affect, appropriate insight DS: Data Data Completed and Pending Completed studies during hospitalization [Text1]: Procedures Dilation of Left Ureter with Intraluminal Device, Via Natural or Artificial Opening Endoscopic (09/23/21) Fluoroscopy of Left Kidney, Ureter and Bladder (09/23/21) Labs on day of discharge: Laboratory Results - last 24 hr 10/12/21 10/12/21 06:20 06:20 WBC 8.3 RBC 3.25 L Hgb 8.1 L Hct 26.9 L MCV 82.8 MCH 24.9 L MCHC 30.1 L RDW 16.0 Plt Count 683 H MPV 9.7 Absolute Nucleated RBC 0.000 Nucleated RBC % (auto) 0.0 Sodium 139 Potassium 4.4 Chloride 108 Carbon Dioxide 23 Anion Gap 12 BUN 5 L Creatinine 0.64 Estim Creat Clear Calc 117.5 Estimated GFR > 60 Fasting Glucose 97 Calcium 10.1 Preliminary micro results at discharge 10/10/21 16:51 Blood Culture - Preliminary Blood - Venous No growth after 24 hours. 10/10/21 16:31 Blood Culture - Preliminary Blood - Venous No growth after 24 hours. 10/10/21 18:00 Urine Culture - Preliminary Urine clean catch - Urine lockett top No growth to date. Discharge Plan Discharge Patient Disposition: Home, Self-Care Discharge Diagnosis: acute pyelo, sepsis Referrals: Syed Wilson MD [Primary Care Provider] - 1 Week Discharge Medications: New levofloxacin 750 mg tablet 750 mg PO DAILY Qty: 14 0RF Continued citalopram 10 mg tablet 1 tab PO BEDTIME 0RF ferrous sulfate 325 mg (65 mg iron) tablet 1 tab PO DAILY 0RF omeprazole 20 mg capsule,delayed release(DR/EC) 20 mg PO DAILY PRN (Reason: Dyspepsia) 0RF bupropion HCl 100 mg tablet sustained-release 12 hr 100 mg PO DAILY 0RF Discharge Orders: Discharge Order (Routine); Ordered 10/12/21 Ordered By: Remi Dimas Diet: advance to usual diet Activity on Discharge: As tolerated Stand Alone Forms: Patient Portal Discharge page Care Plan Goals: recovery Health Concerns: pyelonephritis Plan of Treatment: 2 weeks of levaquin, follow up with Assessment: see above
[2021-10-12] MEDS: Ibuprofen 400 MG TABLET PO (10:31)
[2021-10-12] MEDS: buPROPion HCl XL 150 MG TAB.ER.24H PO (10:31)
--- NOTE | 2021-10-12 10:48 | MHC.CM.PN ---
pt dcd home no skilled services ordered by
--- NOTE | 2021-10-12 11:02 | PM.UROPN ---
Subjective Subjective Date of Service: 10/12/21 Interval history: improving Fever no higher than 99.5 Has been given prescription outpatient for Levaquin May have had a reaction with cefuroxime May follow with Urology in 6-8 weeks with ultrasound to review kidneys Physical Exam Vital Signs: Vital Signs: Last Vital Signs Temp 96.5 F L 10/12/21 07:28 Pulse 71 10/12/21 07:28 Resp 17 10/12/21 07:28 BP 127/68 10/12/21 07:28 Pulse Ox 100 10/12/21 07:28 BMI result Body Mass Index 22.7 Const: General: cooperative, healthy appearing, comfortable and no acute distress Orientation/consciousness: patient oriented x3 HEENT: Face and sinus: Yes normal facial exam Mouth: moist mucous membranes Neck: Neck: Yes normal visual inspection, Yes full ROM and Yes trachea midline Chest: Chest palpation & inspection: normal inspection of the chest Resp: Effort & Inspection: normal respiratory effort, able to speak in complete sentences and no respiratory distress GI: Inspection: Yes normal to inspection Back/Spine/Pelvis: Cervical Spine: normal cervical lordosis Thoracic/Lumbar Spine: thoracic and lumbar spine normal to inspection Skin: General skin exam: no rashes or lesions noted Neuro: General: patient oriented x3, tone normal and moves all extremities Extrem: General: Yes normal to inspection and Yes capillary refill normal Urology Results Labs CBC & Chem 7: 10/12/21 06:20 10/12/21 06:20 Labs: Laboratory Results - last 24 hr 10/12/21 10/12/21 06:20 06:20 WBC 8.3 RBC 3.25 L Hgb 8.1 L Hct 26.9 L MCV 82.8 MCH 24.9 L MCHC 30.1 L RDW 16.0 Plt Count 683 H MPV 9.7 Absolute Nucleated RBC 0.000 Nucleated RBC % (auto) 0.0 Sodium 139 Potassium 4.4 Chloride 108 Carbon Dioxide 23 Anion Gap 12 BUN 5 L Creatinine 0.64 Estim Creat Clear Calc 117.5 Estimated GFR > 60 Fasting Glucose 97 Calcium 10.1 Urology Procedures Other Procedure Other Procedure: cystoscopy at bedside with removal of left ureteric stent patient prepped Cystoscope placed Stent seen emerging from left ureteric orifice grasped with 4 prong grasper and removed intact Progress Note: A&P Assessment and plan (1) Pyelonephritis: Status: Acute Plan stent removed from left side 6-8 weeks for imaging Fall Risk Details Current Medications: Current Medications Benzonatate (Benzonatate 100 Mg Capsule) 100 mg PO TID PRN PRN Reason: Cough Bupropion HCl (Bupropion Hcl Xl 150 Mg Tab.Er.24h) 150 mg PO DAILY [facility] Last Admin: 10/12/21 10:31 Dose: 150 mg Documented by: Docusate Sodium (Docusate Sodium 100 Mg Capsule) 100 mg PO DAILY PRN PRN Reason: Constipation Last Admin: 10/12/21 06:25 Dose: 100 mg Documented by: Enoxaparin Sodium (Enoxaparin Sodium 40 Mg/0.4 Ml Syringe) 40 mg SUBCUT Q24H [facility] Last Admin: 10/11/21 21:38 Dose: 40 mg Documented by: Escitalopram Oxalate (Escitalopram Oxalate 5 Mg Tablet) 5 mg PO BEDTIME DANIAL Last Admin: 10/11/21 21:38 Dose: 5 mg Documented by: Famotidine (Famotidine/Pf 20 Mg/2 Ml Vial) 20 mg IVPUSH BID [facility] Last Admin: 10/12/21 10:32 Dose: Not Given Documented by: Ferrous Sulfate (Ferrous Sulfate 324 Mg Tablet.) 324 mg PO DAILY [facility] Last Admin: 10/12/21 10:32 Dose: Not Given Documented by: Hydromorphone HCl (Hydromorphone Hcl 1 Mg/Ml Syringe) 0.6 mg IVPUSH Q6H PRN; Protocol PRN Reason: Breakthrough Pain Last Admin: 10/11/21 16:30 Dose: 0.6 mg Documented by: Levofloxacin (Levaquin) 750 mg in 150 mls @ 100 mls/hr IV Q24H [facility] Last Infusion: 10/11/21 18:49 Dose: Infused Documented by: Sodium Chloride (Ns) 1,000 mls @ 100 mls/hr IVCONT .Q10H [facility] Last Admin: 10/12/21 04:49 Dose: 100 mls/hr Documented by: Ibuprofen (Ibuprofen 400 Mg Tablet) 400 mg PO Q6H PRN PRN Reason: pain/fever Last Admin: 10/12/21 10:31 Dose: 400 mg Documented by: Melatonin (Melatonin 3 Mg Tablet) 6 mg PO BEDTIME PRN PRN Reason: Insomnia Omeprazole (Omeprazole 20 Mg Capsule.) 20 mg PO DAILY@0630 [facility] Last Admin: 10/12/21 06:20 Dose: 20 mg Documented by: Ondansetron HCl (Ondansetron Hcl 4 Mg/2 Ml Vial) 4 mg IVPUSH Q6H PRN PRN Reason: nausea Pharmacy Consult (Consult Rx Perform Med Rec) 1 each MISCELLANE ONCE PRN PRN Reason: Consult order Phenazopyridine HCl (Phenazopyridine Hcl 200 Mg Tablet) 200 mg PO TID PRN PRN Reason: Muscle Spasm Stop: 10/13/21 17:39 Last Admin: 10/11/21 18:53 Dose: 200 mg Documented by: Senna (Sennosides 8.6 Mg Tablet) 17.2 mg PO BEDTIME PRN PRN Reason: Constipation Sodium Chloride (0.9 % Sodium Chloride Flush 3 Ml Syringe) 3 ml IVFLUSH QSHIFT [facility] Last Admin: 10/12/21 10:32 Dose: Not Given Documented by: Time Spent With Patient Time: Total time spent is greater than 50% in coordination of care (as documented) at patient's floor/unit and/or counseling patient: Progress Note: Quality Stroke Does the patient have a stroke diagnosis?: No
== END 2021-10-12 14:15 | disposition home or self-care (01) | DRG 720 ==
LOC: HO.ED 19:47 → HO.EDOVER 22:35 → HO.IMC 10-11 00:11
PROVIDERS: Admitting Provider Hospitalist; Emergency Provider Emergency Medicine; PCP Family Medicine; Visit Provider Internal Medicine
DX: A41.9 Sepsis, unspecified organism (principal); D50.9 Iron deficiency anemia, unspecified; F17.210 Nicotine dependence, cigarettes, uncomplicated; E21.3 Hyperparathyroidism, unspecified; F32.A Depression, unspecified; N10 Acute pyelonephritis; N20.0 Calculus of kidney; R65.20 Severe sepsis without septic shock; F41.9 Anxiety disorder, unspecified; F90.9 Attention-deficit hyperactivity disorder, unspecified type; G43.909 Migraine, unspecified, not intractable, without status migrainosus; Z87.442 Personal history of urinary calculi; Z20.822 Contact with and (suspected) exposure to COVID-19; Z71.6 Tobacco abuse counseling; Z88.2 Allergy status to sulfonamides; Z79.899 Other long term (current) drug therapy
CPT/HCPCS: 36415; 71045; 74176; 80048; 81001; 83605; 84484; 85025; 85027; 85379; 87040; 87086; 87502; 87635; 93005; 96361; 96374; 96375; 99285; J1170; J1650; J1956; J2405

== ENCOUNTER 2021-10-28 12:50 | Outpatient (REF) | payer OTHER, SELFPAY ==
[2021-10-28 13:01] LABS: MANUAL DIFF FLAG NO
[2021-10-28 13:32] LABS: Basophils Absolute Auto 0.1 X10*3/uL (0.0-0.2); Basophils Percent Auto 0.9 % (0-2); Eosinophils Absolute Auto 0.4 X10*3/uL (0.0-0.4); Eosinophils Percent Auto 5.3 % (0-4); Hematocrit 36.8 % (37.0-47.0); Hemoglobin 11.2 g/dl (12.0-16.0); Imm Gran Abs Auto 0.02 X10*3/uL (0.00-0.03); Imm Gran Pct Auto 0.3 % (0.0-0.4); Lymphocytes Absolute Auto 2.5 X10*3/uL (1.2-4.9); Lymphocytes Percent Auto 35.6 % (20-40); Mean Corpuscular HGB Conc 30.4 g/dl (31.0-35.0); Mean Corpuscular Hemoglobin 25.4 pg (27.0-33.0); Mean Corpuscular Volume 83.4 fL (80.0-98.0); Mean Platelet Volume 10.5 fL (9.4-12.3); Monocytes Absolute Auto 0.5 X10*3/uL (0.1-1.2); Neutrophils Absolute Auto 3.6 x10*3/uL (2.0-8.3); Neutrophils Percent Auto 50.9 % (45-73); Platelet Count 341 X10*3/uL (160-400); Red Blood Count 4.41 X10*6/uL (4.20-5.50); Red Cell Distribution Width 17.7 % (11.0-16.0)
[2021-10-28 14:04] LABS: Iron 120 mcg/dL (30-160); Percent Iron Saturation 29 % (15-50); Total Iron Binding Capacity 421 mcg/dL (228-428); Unsaturated Iron Binding 301 ug/dL
== END 2021-10-28 12:51 | disposition home or self-care (01) ==
LOC: HO.LAB 12:50
PROVIDERS: PCP Family Medicine; Visit Provider Family Medicine
DX: D50.9 Iron deficiency anemia, unspecified (principal)
CPT/HCPCS: 36415; 83540; 85025

== ENCOUNTER 2021-10-30 13:12 | Outpatient (REF) | payer OTHER, SELFPAY ==
[2021-11-01 05:11] LABS: Rubella IgG Antibody 1.88 Index
== END 2021-10-30 13:13 | disposition home or self-care (01) ==
LOC: HO.LAB 13:12
PROVIDERS: PCP Family Medicine; Visit Provider Family Medicine
DX: Z02.1 Encounter for pre-employment examination (principal)
CPT/HCPCS: 36415; 86735; 86762; 86765

== ENCOUNTER 2021-11-11 10:57 | Outpatient (REF) | payer OTHER, SELFPAY ==
--- NOTE | ~2021-11-11 | US_ITS ---
EXAMINATION: US RETROPERITONEAL LIMITED (RENAL ONLY) CLINICAL INFORMATION: Tubulointerstitial nephritis, not specified as acute or chronic. COMPARISON: CT abdomen and pelvis without contrast 10/10/2021. US retroperitoneal limited (renal only) 05/29/2021 and 03/21/2021. TECHNIQUE: Real-time imaging of the kidneys. FINDINGS: RIGHT KIDNEY: 12.6 x 5.2 x 5.8 cm (SAG x AP x TRV). The kidney is normal in size, contour, and echogenicity. Renal cortical thickness is normal. No focal parenchymal lesions or hydronephrosis. There are couple echogenic foci, each measuring 3 mm within the mid and lower pole. LEFT KIDNEY: 11.6 x 5.6 x 5.1 cm (SAG x AP x TRV). The kidney is normal in size, contour, and echogenicity. Renal cortical thickness is normal. No calculi or focal parenchymal lesions. No hydronephrosis. US/US renal BI IMPRESSION: There are 2 nonobstructive intrarenal calculi in the right kidney. Otherwise unremarkable sonographic appearance of the kidneys..
== END 2021-11-11 10:58 | disposition home or self-care (01) ==
LOC: HO.US 10:57
PROVIDERS: PCP Family Medicine; Visit Provider Urology
DX: N12 Tubulo-interstitial nephritis, not specified as acute or chronic (principal)
CPT/HCPCS: 76775

== ENCOUNTER → 2021-11-15 11:46 | Outpatient (BNVA) | payer OTHER, SELFPAY | PROVIDERS: PCP Family Medicine; Visit Provider Urology | DX: N12 Tubulo-interstitial nephritis, not specified as acute or chronic (principal) ==

== ENCOUNTER 2021-12-13 16:41 | Outpatient (REF) | payer OTHER, SELFPAY ==
[2021-12-13 16:57] LABS: MANUAL DIFF FLAG NO
[2021-12-13 17:44] LABS: Basophils Absolute Auto 0.1 X10*3/uL (0.0-0.2); Basophils Percent Auto 0.7 % (0-2); Eosinophils Absolute Auto 0.7 X10*3/uL (0.0-0.4); Eosinophils Percent Auto 9.5 % (0-4); Hematocrit 37.6 % (37.0-47.0); Hemoglobin 11.6 g/dl (12.0-16.0); Imm Gran Abs Auto 0.02 X10*3/uL (0.00-0.03); Imm Gran Pct Auto 0.3 % (0.0-0.4); Lymphocytes Absolute Auto 2.7 X10*3/uL (1.2-4.9); Lymphocytes Percent Auto 37.8 % (20-40); Mean Corpuscular HGB Conc 30.9 g/dl (31.0-35.0); Mean Corpuscular Hemoglobin 25.5 pg (27.0-33.0); Mean Corpuscular Volume 82.6 fL (80.0-98.0); Mean Platelet Volume 10.8 fL (9.4-12.3); Monocytes Absolute Auto 0.6 X10*3/uL (0.1-1.2); Neutrophils Absolute Auto 3.1 x10*3/uL (2.0-8.3); Neutrophils Percent Auto 43.7 % (45-73); Platelet Count 371 X10*3/uL (160-400); Red Blood Count 4.55 X10*6/uL (4.20-5.50); White Blood Count 7.1 X10*3/uL (4.8-10.8)
[2021-12-13 18:05] LABS: Alanine Aminotransferase 59 U/L (0-31); Albumin Level 4.3 g/dL (3.5-5.0); Alkaline Phosphatase 91 U/L (39-117); Anion Gap 10 (12-20); Aspartate Amino Transferase 36 U/L (5-31); Bilirubin Total 0.2 mg/dL (0.0-1.0); Blood Urea Nitrogen 16 mg/dL (9-16); Calcium 11.7 mg/dL (8.4-10.2); Carbon Dioxide 28 mmol/L (22-29); Chloride 106 mmol/L (96-108); Estimated Glomerular Filt Rate > 60; Glucose Random 88 mg/dL (60-115); Potassium 5.1 mmol/L (3.3-5.1); Sodium 139 mmol/L (135-145); Total Protein 7.9 g/dL (6.5-8.0)
[2021-12-13 18:23] LABS: Free T4 (Free Thyroxine) 0.78 ng/dL (0.71-1.85); Thyroid Stimulating Hormone 0.52 uIU/mL (0.32-4.0)
[2021-12-14 18:36] LABS: Follicle Stimulating Hormone 54.7 mIU/mL
[2021-12-16 16:21] LABS: Calcium (PTHI) 11.3 mg/dL (8.6-10.2); PTHI 124 pg/mL (16-77)
== END 2021-12-13 16:42 | disposition home or self-care (01) ==
LOC: HO.LAB 16:41
PROVIDERS: PCP Family Medicine; Visit Provider Family Medicine
DX: R53.83 Other fatigue (principal); D50.9 Iron deficiency anemia, unspecified; L65.9 Nonscarring hair loss, unspecified; E21.3 Hyperparathyroidism, unspecified
CPT/HCPCS: 36415; 80053; 83001; 83970; 84439; 84443; 85025

== ENCOUNTER 2022-02-11 17:44 | Outpatient (REF) | payer OTHER, SELFPAY ==
[2022-02-11 18:05] LABS: Appearance Urine Clear; Color Urine STRAW; Glucose Urine UA Negative (Negative); Leukocyte Esterase Urine Negative (Negative); Nitrite Urine Negative (Negative); Specific Gravity - Urine <= 1.005 (1.005-1.025); Urine Blood Negative (Negative); Urine Ketones Negative (Negative); Urine Protein Negative (Neg-Trace)
== END 2022-02-11 17:45 | disposition home or self-care (01) ==
LOC: HO.LNP 17:44
PROVIDERS: Visit Provider Family Medicine
DX: N39.0 Urinary tract infection, site not specified (principal)
CPT/HCPCS: 81003; 87086

== ENCOUNTER 2022-02-12 10:33 | Outpatient (REF) | payer OTHER, SELFPAY ==
[2022-02-12 10:46] LABS: MANUAL DIFF FLAG NO
[2022-02-12 11:16] LABS: Basophils Absolute Auto 0.1 X10*3/uL (0.0-0.2); Basophils Percent Auto 1.3 % (0-2); Eosinophils Absolute Auto 0.6 X10*3/uL (0.0-0.4); Eosinophils Percent Auto 9.4 % (0-4); Hemoglobin 13.8 g/dl (12.0-16.0); Imm Gran Abs Auto 0.01 X10*3/uL (0.00-0.03); Imm Gran Pct Auto 0.2 % (0.0-0.4); Lymphocytes Absolute Auto 2.4 X10*3/uL (1.2-4.9); Lymphocytes Percent Auto 39.6 % (20-40); Mean Corpuscular HGB Conc 32.1 g/dl (31.0-35.0); Mean Corpuscular Hemoglobin 27.5 pg (27.0-33.0); Mean Corpuscular Volume 85.7 fL (80.0-98.0); Mean Platelet Volume 11.2 fL (9.4-12.3); Monocytes Absolute Auto 0.4 X10*3/uL (0.1-1.2); Monocytes Percent Auto 7.2 % (2-11); Neutrophils Absolute Auto 2.6 x10*3/uL (2.0-8.3); Neutrophils Percent Auto 42.3 % (45-73); Platelet Count 285 X10*3/uL (160-400); Red Blood Count 5.02 X10*6/uL (4.20-5.50); Red Cell Distribution Width 16.6 % (11.0-16.0); White Blood Count 6.1 X10*3/uL (4.8-10.8)
[2022-02-12 12:32] LABS: Iron 51 mcg/dL (30-160); Percent Iron Saturation 12 % (15-50); Total Iron Binding Capacity 435 mcg/dL (228-428); Unsaturated Iron Binding 384 ug/dL
== END 2022-02-12 10:34 | disposition home or self-care (01) ==
LOC: HO.LAB 10:33
PROVIDERS: PCP Family Medicine; Visit Provider Family Medicine
DX: R53.83 Other fatigue (principal); E83.52 Hypercalcemia; D50.9 Iron deficiency anemia, unspecified
CPT/HCPCS: 36415; 82310; 83540; 85025

== ENCOUNTER → 2022-05-15 09:15 | Outpatient (BNVA) | payer OTHER, SELFPAY | PROVIDERS: PCP Family Medicine; Visit Provider Urology | DX: N39.0 Urinary tract infection, site not specified (principal); R10.9 Unspecified abdominal pain; Z87.448 Personal history of other diseases of urinary system | CPT/HCPCS: 99212 ==

== ENCOUNTER 2022-05-20 15:59 | Outpatient (REF) | payer OTHER, SELFPAY ==
--- NOTE | ~2022-05-20 | MM_ITS ---
EXAMINATION: MM SCREENING DIGITAL BREAST TOMOSYNTHESIS, BILATERAL CLINICAL INFORMATION: Screening. Asymptomatic. No prior breast imaging. Age 47. The lifetime risk of breast cancer based on the Tyrer-Cuzick Model is 12%. COMPARISON: None (current study represents initial baseline exam). TECHNIQUE: Digital breast tomosynthesis is performed in both the craniocaudal and mediolateral oblique views along with computer-aided detection (CAD). Synthesized 2D images are generated from the tomosynthesis. FINDINGS: There are scattered areas of fibroglandular density (ACR BI-RADS breast composition Category b). There are no significant masses, abnormal calcifications, or other abnormalities. No architectural abnormality. The axilla and skin contours are unremarkable. MM/MM tomosynthesis screening BI IMPRESSION: No mammographic evidence of malignancy. ASSESSMENT: BI-RADS 1: Negative RECOMMENDATION: Routine annual mammography screening. This patient's information was entered into a reminder system with a target due date for their next mammogram.
== END 2022-05-20 16:00 | disposition home or self-care (01) ==
LOC: HO.MAMMO 15:59
PROVIDERS: PCP Family Medicine; Visit Provider Family Medicine
DX: Z12.31 Encounter for screening mammogram for malignant neoplasm of breast (principal)
CPT/HCPCS: 77063; 77067

== ENCOUNTER 2022-05-29 08:00 | Outpatient (REF) | payer OTHER, SELFPAY ==
--- NOTE | ~2022-05-29 | CT_ITS ---
EXAMINATION: CT ABDOMEN AND PELVIS WITHOUT AND WITH CONTRAST CLINICAL INFORMATION: Disease of urinary system. COMPARISON: CT of the abdomen and pelvis without contrast 10/10/2021. TECHNIQUE: Multidetector volumetric imaging was performed of the abdomen and pelvis before and after the IV administration of 85 mL of Omnipaque 350 intravenous contrast. Sagittal and coronal reformatted images were obtained on the technologist's workstation. This CT examination was performed using dose optimization techniques as appropriate, variously including the following: *Automated exposure control *Adjustment of mA and/or kV according to patient size (this includes techniques or standardized protocols for targeted exams where dose is matched to indication/reason for exam; i.e. extremities or head) *Use of iterative reconstruction technique DLP: 1000 mGy-cm FINDINGS: LUNG BASES: The visualized lung bases are unremarkable. LIVER, GALLBLADDER, AND BILIARY TREE: The liver is normal in size, shape, and attenuation. No focal hepatic lesion or biliary ductal dilatation is present. The gallbladder is unremarkable with no evidence of radiopaque gallstones, gallbladder wall thickening, or obvious pericholecystic inflammatory changes. PANCREAS: Unremarkable. SPLEEN: Unremarkable. ADRENAL GLANDS: Unremarkable. KIDNEYS AND URETERS: The kidneys are normal in size, shape, and attenuation. There are bilateral 2 mm radiopaque calculi in the upper, mid and lower pole right kidney and upper pole left kidney. No cystic or solid mass seen. Bilateral perinephric stranding has improved on the left side. BLADDER: Unremarkable. GASTROINTESTINAL TRACT: There is moderate scattered stool seen throughout the colon without significant distention. The small bowel loops are normal caliber. Appendix is not seen with certainty. No inflammatory process seen in the abdomen or pelvis. No free air seen. ABDOMINAL WALL: No significant hernia is appreciated. LYMPH NODES: There are small shotty lymph nodes in the retroperitoneum, nonspecific. VASCULAR: Unremarkable. PELVIC VISCERA: There are scattered phleboliths in the pelvis. No free fluid or free air seen. OSSEOUS STRUCTURES: No aggressive lytic or sclerotic process seen. CT/CT abdomen pelvis wo/w IV con IMPRESSION: 1. Bilateral nonobstructive radiopaque renal calculi without caliectasis or hydronephrosis. 2. Mild constipation. Fleischner guidelines were followed.
[2022-05-29] MEDS: iohexoL 350 MG/ML 100 ML INFUS..BTL IV (09:36)
[2022-05-30 08:34] LABS: Creatinine POC 0.6 mg/dL (0.5-1.4); GFR POC > 60
== END 2022-05-29 08:01 | disposition home or self-care (01) ==
LOC: HO.CT 08:00
PROVIDERS: PCP Family Medicine; Visit Provider Urology
DX: N20.0 Calculus of kidney (principal); N39.0 Urinary tract infection, site not specified; Z87.448 Personal history of other diseases of urinary system
CPT/HCPCS: 74178; 82565; Q9967

== ENCOUNTER → 2022-07-30 13:50 | Outpatient (BNVA) | payer OTHER, SELFPAY | PROVIDERS: PCP Family Medicine; Visit Provider Nurse Practitioner Family | DX: N20.0 Calculus of kidney (principal) | CPT/HCPCS: 99212 ==

== ENCOUNTER 2022-07-30 17:08 | Outpatient (REF) | payer OTHER, SELFPAY ==
[2022-07-30 17:09] LABS: Urine Cytology See Pathology rpt
== END 2022-07-30 17:09 | disposition home or self-care (01) ==
LOC: HO.LNP 17:08
PROVIDERS: Visit Provider Nurse Practitioner Family
DX: N39.0 Urinary tract infection, site not specified (principal); N20.0 Calculus of kidney
CPT/HCPCS: 88112

== ENCOUNTER 2022-10-08 14:59 | Outpatient (REF) | payer OTHER, SELFPAY ==
[2022-10-08 17:11] LABS: Appearance Urine Cloudy; Color Urine Yellow; Glucose Urine UA Negative (Negative); Leukocyte Esterase Urine Negative (Negative); Nitrite Urine Negative (Negative); Urine Blood Negative (Negative); Urine Ketones Negative (Negative); Urine Protein Negative (Neg-Trace)
[2022-10-08 17:14] LABS: Bacteria Urine None Seen (None Seen); Hyaline Casts Urine 0-2 /LPF (0-2); RBC Urine 0-2 /HPF (0-2); Squamous Epithelial Cell Urine 0-2 /HPF (0-2); WBC Urine 0-5 /HPF (0-5)
== END 2022-10-08 15:00 | disposition home or self-care (01) ==
LOC: HO.HMGCLDS 14:59
PROVIDERS: PCP Family Medicine; Visit Provider Nurse Practitioner Family
DX: Z87.448 Personal history of other diseases of urinary system (principal)
CPT/HCPCS: 81001; 87086

== ENCOUNTER 2023-01-28 08:34 | Outpatient (REF) | payer OTHER, SELFPAY ==
--- NOTE | ~2023-01-28 | US_ITS ---
EXAMINATION: US RETROPERITONEAL LIMITED (RENAL ONLY) CLINICAL INFORMATION: Calculus of kidney. COMPARISON: CT abdomen and pelvis without and with contrast 05/29/2022. Ultrasound retroperitoneal limited (renal only) 11/11/2021 TECHNIQUE: Real-time imaging of the kidneys. FINDINGS: RIGHT KIDNEY: 12.3 x 4.2 x 5.6 cm (SAG x AP x TRV). The kidney is normal in size, contour, and echogenicity. Renal cortical thickness is normal. No focal parenchymal lesions or hydronephrosis. 3 mm nonobstructing lower pole renal stone, previously 3 mm. 4 mm nonobstructing midpole renal stone, previously 3 mm. New nonobstructing 3 mm upper is pole renal stone. LEFT KIDNEY: 11.6 x 4.5 x 4.7 cm (SAG x AP x TRV). The kidney is normal in size, contour, and echogenicity. Renal cortical thickness is normal. No calculi or focal parenchymal lesions. No hydronephrosis. New punctate nonobstructing lower pole renal stone. US/US renal BI IMPRESSION: Nonobstructing stones measuring up to 4 m on the right some new from prior ultrasound.
== END 2023-01-28 08:35 | disposition home or self-care (01) ==
LOC: HO.HMGCX 08:34
PROVIDERS: PCP Family Medicine; Visit Provider Nurse Practitioner Family
DX: N20.0 Calculus of kidney (principal)
CPT/HCPCS: 76775

== ENCOUNTER 2023-02-02 14:42 | Outpatient (AMB) | payer OTHER, SELFPAY ==
--- NOTE | 2023-02-02 14:43 | A.OFFVIS_ITS ---
Intake Intake Visit Reasons: 6m follow up/US(set) Intake Note: Patient presents for follow up ultrasound/kidney stone (imaging 01/28) Urology Medications: none Blood thinners: none Rn Ambulatory Required: No Accompanied by: Self / Same As Patient Allergies Sulfa (Sulfonamide Antibiotics) Allergy (Verified 02/03/23 21:40) Chest Pain cefuroxime Adverse Reaction (Verified 02/03/23 21:40) Fever Medication List - Last Reconciled 02/03/23 by THEODORE Rose- bupropion HCl 100 mg PO DAILY citalopram 1 tab PO BEDTIME cyclobenzaprine 5 mg PO BEDTIME docusate sodium 200 mg PO BID ferrous sulfate 1 tab PO DAILY methylphenidate HCl ER (Concerta) 27 mg PO QAM methylphenidate HCl ER (Concerta) 18 mg PO BID methylphenidate HCl ER (Concerta) 36 mg PO QAM omeprazole 20 mg PO DAILY PRN pyridoxine (vitamin B6) 100 mg PO DAILY 90 days HPI HPI Comments History of Present Illness Details Iman is a pleasant 47-year-old female patient of Dr. Wilson. She presents to the office for a follow up of her history of nephrolithaisis. Of note, the patient was admitted in the spring 2021 for pyelonephritis and acute renal failure secondary to sepsis. She had a left ureteral stent placed at that time that has since been removed. Recent renal imaging results reviewed with the patient today. Right kidney with no lesions or hydronephrosis noted.3 mm nonobstructing lower pole renal stone, previously 3 mm. 4 mm nonobstructing midpole renal stone, previously 3 mm. New nonobstructing 3 mm upper is pole renal stone. Left kidney with no lesions or hydronephrosis. New punctate nonobstructing lower pole renal stone. In discussion with the patient today she reports to be doing and feeling well. She reports noting intermittent episodes of flank pain however these episodes are infrequent. She reports most recently lately at work she has been consuming diet Coke. However, she discusses knowing she needs to limit this due to her longstanding history of nephrolithiasis. She endorses compliance with vitamin B6 daily. Discussed and stressed the importance of drinking plenty of water daily as well as adding 1 oz of lemon juice to water daily. Discussed further nephrolithiasis workup with 24 hour urine and labs and or continue with surveillance imaging monitoring. Patient otherwise denies urinary urgency, urinary frequency, incontinence, nocturia, hematuria, dysuria, foul smelling urine, changes to urinary stream, fever, and or chills. She is happy with her current voiding parameters. She otherwise denies any issues or concerns at this time. 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 Do you presently have visiting nurse or other home services: No Alcohol intake: current Alcohol intake frequency: a few times a month Patient Tobacco Use Status: Current someday Tobacco user Tobacco use type: Cigarette service: No Current occupational status: employed Review of Systems Const Reports as per HPI Eyes Reports no additional complaints ENT Reports no additional complaints Card Reports no additional complaints Resp Reports no additional complaints GI Reports as per HPI Reports as per HPI Musc Reports no additional complaints Neuro Reports no additional complaints Psych Reports no additional complaints Endo Reports no additional complaints Yuriy/Lymph Reports no additional complaints Aller/Immun Reports no additional complaints Physical Exam Const General: cooperative, healthy appearing, comfortable, no acute distress, well developed, alert and awake Nutritional Appearance: average body habitus Orientation/consciousness: patient oriented x3 Limitations: no limitations HEENT Head: Yes normal to inspection, Yes normocephalic and Yes atraumatic Ears: hearing grossly normal bilaterally Eyes General: appearance normal, both eyes and all related structures Neck Neck: Yes normal visual inspection and Yes trachea midline Chest Chest palpation & inspection: normal inspection of the chest Resp Effort & Inspection: normal respiratory effort Cardio Rate: regular rate GI Other: non tender non distended Inspection: Yes normal to inspection General: Yes no CVA tenderness Back/Spine/Pelvis Back: no CVA tenderness Skin General skin exam: no rashes or lesions noted Neuro General: patient oriented x3 Extrem General: Yes normal to inspection and Yes full ROM Psych Appearance: grossly normal and well kempt Mental Status: mental status grossly normal Speech and movement: Normal speech and movement present and Clear speech present Affect: normal affect Attitude: cooperative Thought process: Normal thought process present Thought content: Normal thought content present Insight: Good insight present (Psych) Judgement: Good judgement present (Psych) Results AMB Urinalysis, Automated UA Leukoctes 0 Blue/uL Last Edit by Eventifierashley on 02/02/23 14:59 UA Nitrite Last Edit by [employer] on 02/02/23 14:59 UA Urobilinogen 0.2 mg/dL Last Edit by [employer] on 02/02/23 14:59 UA Protein 15 mg/dL Last Edit by [employer] on 02/02/23 14:59 UA pH 7.0 Last Edit by [employer] on 02/02/23 14:59 UA Blood 0 Gab/uL Last Edit by [employer] on 02/02/23 14:59 UA Specific Martell 1.015 Last Edit by [employer] on 02/02/23 14:59 UA Ketone Negative Last Edit by [employer] on 02/02/23 14:59 UA Bilirubin 0 mg/dL Last Edit by [employer] on 02/02/23 14:59 UA Glucose 0 mg/dL Last Edit by [employer] on 02/02/23 14:59 Results Reviewed Results Reviewed: Laboratory Last Values Urine pH (Auto) 7.0 02/02/23 14:46 Specific Martell (Auto) 1.015 02/02/23 14:46 Urine Protein (Auto) 15 mg/dL 02/02/23 14:46 Glucose (UA)(Auto) 0 mg/dL 02/02/23 14:46 Urine Ketones (Auto) Negative 02/02/23 14:46 Urine Blood (Auto) 0 Gab/uL 02/02/23 14:46 Urine Bilirubin (Auto) 0 mg/dL 02/02/23 14:46 Urine Urobilinogen (Auto) 0.2 mg/dL 02/02/23 14:46 Leukocyte Esterase (Auto) 0 Blue/uL 02/02/23 14:46 Date of Service: 01/28/23 EXAMINATION: US RETROPERITONEAL LIMITED (RENAL ONLY) FINDINGS: RIGHT KIDNEY: 12.3 x 4.2 x 5.6 cm (SAG x AP x TRV). The kidney is normal in size, contour, and echogenicity. Renal cortical thickness is normal. No focal parenchymal lesions or hydronephrosis. 3 mm nonobstructing lower pole renal stone, previously 3 mm. 4 mm nonobstructing midpole renal stone, previously 3 mm. New nonobstructing 3 mm upper is pole renal stone. LEFT KIDNEY: 11.6 x 4.5 x 4.7 cm (SAG x AP x TRV). The kidney is normal in size, contour, and echogenicity. Renal cortical thickness is normal. No calculi or focal parenchymal lesions. No hydronephrosis. New punctate nonobstructing lower pole renal stone. IMPRESSION: Nonobstructing stones measuring up to 4 m on the right some new from prior ultrasound. Assessment & Plan Assessment & Plan (1) Bilateral kidney stones: Code(s): N20.0 - Calculus of kidney Plan In office urinalysis results reviewed with the patient today; as noted above. Patient denies any bothersome urinary symptoms or issues at this time. Recent renal imaging results reviewed with the patient today; as noted above. Continue vitamin B6 as discussed and prescribed. Continue adding 1 oz of lemon juice to water daily. Discussed, stress, and encouraged to drink plenty of water daily and avoid soda if possible. Renal ultrasound in 1 year Follow-up in 1 year with imaging to be completed prior; or sooner with any issues, concerns, and or questions Orders: Orders US renal BI 364 Days N20.0 - Calculus of kidney AMB Urinalysis Automated 02/02/23 Z13.9 - Encounter for screening, unspecified Patient Instructions: The patient had an opportunity to ask questions regarding the treatment plan. All questions were answered. Physical exam, labs, and imaging were discussed and reviewed in detail. As well as risks, benefits, and discussion of treatment choices. No major barriers to understanding were identified. The patient expressed understanding and agreement with the above treatment plan. The patient was made aware they should contact our office by phone for worsening of their current condition, the appearance of new symptoms, or with any questions or concerns. Compliance is encouraged with any medications and follow up testing that is ordered. It is a privilege to be allowed the opportunity to participate in? your urological care.? Again, if you have any questions or concerns If you have any questions or concerns please do not hesitate to contact me. The office is [phone]. This note is constructed using voice recognition software. While every effort has been made to ensure accuracy community relations representative errors may have been included. Yours sincerely, THEODORE Rose-RANDY Coding Level of Care Code Est Pt Level 3 (27208) Diagnoses Bilateral kidney stones N20.0
== END 2023-02-02 15:36 | disposition home or self-care (01) ==
PROVIDERS: Visit Provider Nurse Practitioner Family
DX: N20.0 Calculus of kidney (principal)
CPT/HCPCS: 99213

== ENCOUNTER → 2023-02-02 14:42 | Outpatient (BNVA) | payer OTHER, SELFPAY | PROVIDERS: Visit Provider Nurse Practitioner Family | DX: N20.0 Calculus of kidney (principal) | CPT/HCPCS: 99212 ==

== ENCOUNTER 2023-03-13 14:16 | Outpatient (REF) | payer OTHER, SELFPAY | END 2023-03-13 14:17 | disposition home or self-care (01) | LOC: HO.LNP 14:16 | PROVIDERS: Visit Provider Family Medicine | DX: N39.0 Urinary tract infection, site not specified (principal) | CPT/HCPCS: 87086; 87088; 87186 ==

== ENCOUNTER 2023-03-17 09:26 | Outpatient (AMB) | payer OTHER, SELFPAY ==
--- NOTE | 2023-03-17 09:27 | AM.OFFWIN_ITS ---
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 Intake Note: pt is here for 2 bee stings, allergy to bees no epi pen Patient Tobacco Use Status: Current someday Tobacco user Allergies Sulfa (Sulfonamide Antibiotics) Allergy (Verified 03/17/23 09:54) Chest Pain cefuroxime Adverse Reaction (Verified 03/17/23 09:54) Fever Medication List - Last Reconciled 03/17/23 by Darren Rothman MD amoxicillin-pot clavulanate 875-125 mg 1 tab PO BID bupropion HCl 100 mg PO DAILY citalopram 1 tab PO BEDTIME epinephrine (EpiPen 2-Malik) 0.3 mg (0.3 mL) IM Q4H PRN methylphenidate HCl ER (Concerta) 27 mg PO QAM omeprazole 20 mg PO DAILY PRN pyridoxine (vitamin B6) 100 mg PO DAILY 90 days Do you need a note to return to daycare/school/sports/work: Yes HPI 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 Patient is allergic to bees. While getting to work today, she believes she was stung twi ce. Patient is very apprehensive. No difficulty breathing or shortness of breath. 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: Yes Do you presently have visiting nurse or other home services: No Alcohol intake: current Alcohol intake frequency: a few times a month Patient Tobacco Use Status: Current someday Tobacco user Tobacco use type: Cigarette service: No Current occupational status: employed Physical Exam Vital Signs: Last Vital Signs Temp 97.8 F 03/17/23 09:30 Pulse 74 03/17/23 09:30 BP 122/76 03/17/23 09:30 Pulse Ox 98 03/17/23 09:30 Const General: cooperative and healthy appearing Nutritional Appearance: well nourished Orientation/consciousness: patient oriented x3 Limitations: no limitations HEENT Head: Yes normal to inspection Eyes General: appearance normal, both eyes and all related structures Neck Neck: Yes normal visual inspection Chest Chest palpation & inspection: normal palpation of entire chest wall Resp Effort & Inspection: normal respiratory effort Skin Other: Tiny erythematous area on the right hand over the dorsum and over the right ankle. No swelling. 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 EpiPen called in. Note for work given. Medications: New epinephrine (EpiPen 2-Malik) 0.3 mg (0.3 mL) IM Q4H PRN 2 ea 0RF anaphylaxis Coding Level of Care Code New Pt Level 3 (38752) Diagnoses Bee sting allergy Z91.030
[2023-03-17 09:30] VITALS: BP 122/76; PULSE 74; TEMP 36.6; O2SAT 98
== END 2023-03-17 10:04 | disposition home or self-care (01) ==
PROVIDERS: PCP Family Medicine; Visit Provider Internal Medicine
DX: Z91.030 Bee allergy status (principal)
CPT/HCPCS: 99203

== ENCOUNTER 2023-03-27 13:32 | Outpatient (REF) | payer OTHER, SELFPAY ==
[2023-03-27 16:23] LABS: Appearance Urine Cloudy; Color Urine Yellow; Glucose Urine UA Negative (Negative); Leukocyte Esterase Urine Moderate (2+) (Negative); Nitrite Urine Negative (Negative); PH 5.5 (5.0-9.0); UMIC TRIGGER UA YES; Urine Blood Small (1+) (Negative); Urine Ketones Trace mg/dL (Negative); Urine Protein 30 (1+) mg/dL (Neg-Trace)
[2023-03-27 16:29] LABS: Bacteria Urine 1+ (None Seen); Hyaline Casts Urine 0-2 /LPF (0-2); WBC Urine >50 /HPF (0-5)
[2023-03-27 17:13] LABS: Blood Urea Nitrogen 9 mg/dL (9-16); Estimated Glomerular Filt Rate > 60
== END 2023-03-27 13:33 | disposition home or self-care (01) ==
LOC: HO.HMGCLDS 13:32
PROVIDERS: Urology; Visit Provider Nurse Practitioner Family
DX: N39.0 Urinary tract infection, site not specified (principal); N20.0 Calculus of kidney; Z87.448 Personal history of other diseases of urinary system
CPT/HCPCS: 36415; 81001; 82565; 84520; 87086; 87088; 87186

== ENCOUNTER 2023-04-23 09:37 | Outpatient (AMB) | payer OTHER, SELFPAY ==
[2023-04-23 10:09] VITALS: BP 112/76; PULSE 68; TEMP 36.8; O2SAT 100; BMI 23.2
--- NOTE | 2023-04-23 10:09 | MHC.OFFVIS ---
Intake Vital Signs 04/23/23 10:09 Height 5 ft 10 in Weight 162 lb BMI 23.2 BP 112/76 Blood Pressure Location Rt brachial Position Sitting Pulse 68 Pulse Source Pulse Oximeter Temp 98.2 F Temp Source Oral Pulse Oximetry (%) 100 Oxygen Delivery Method Room Air Intake Visit Reasons: EP LT arm pain Intake Note: Pt presents to the office today for c/o left arm pain that started about 2 months ago and has since become severe pain from her elbow to her wrist. Pt states she has numbness and tingling in her fingers. Pt is left handed dominant Allergies Sulfa (Sulfonamide Antibiotics) Allergy (Verified 04/23/23 10:11) Chest Pain cefuroxime Adverse Reaction (Verified 04/23/23 10:11) Fever nitrofurantoin Allergy (Severe, Uncoded 04/23/23 10:11) Difficulty Breathing HPI HPI Comments History of Present Illness Details 48-year-old female that presents for left arm pain. Patient has had pain for approximately 2 months. Pains in left elbow radiating up the arm and down the arms. She endorses some paresthesias. Denies neck pain trauma to the area. 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: Yes Do you presently have visiting nurse or other home services: No Alcohol intake: current Alcohol intake frequency: a few times a month Patient Tobacco Use Status: Current someday Tobacco user Tobacco use type: Cigarette service: No Current occupational status: employed Review of Systems [facility] Reports arthralgias Physical Exam Vital Signs: Last Vital Signs Temp 98.2 F 04/23/23 10:09 Pulse 68 04/23/23 10:09 BP 112/76 04/23/23 10:09 Pulse Ox 100 04/23/23 10:09 Oxygen Delivery Method Room Air 04/23/23 10:09 BMI result Body Mass Index 23.2 Const General: cooperative, healthy appearing, no acute distress and alert Orientation/consciousness: patient oriented x3 Limitations: no limitations HEENT Head: Yes normal to inspection Ears: hearing grossly normal bilaterally General nose exam: Normal external nose present Resp Effort & Inspection: normal respiratory effort and able to speak in complete sentences Cardio Rate: regular rate Skin General skin exam: no rashes or lesions noted Neuro General: patient oriented x3 Extrem Other: TTP over the lateral epicondyle. Pain with pronation and supination. General: Yes normal to inspection Assessment & Plan Assessment & Plan (1) Lateral epicondylitis: Code(s): M77.10 - Lateral epicondylitis, unspecified elbow Qualifiers: Laterality: left Qualified Code(s): M77.12 - Lateral epicondylitis, left elbow Plan: Symptoms and exam consistent with lateral epicondylitis. Patient has tried conservative management. Will place patient on meloxicam recommend bracing trial again will also refer to orthopedics and physical therapy Discharge instructions, follow up and treatment are discussed with patient in my usual fashion. Alternatives in treatment are also discussed. The patient will return for worsening symptoms or as needed. Advised that any labs/imaging ordered will be followed up on and contact made if further treatment needed. Counseled that patient's condition may require further evaluation and/or treatment. Symptoms of concern for worsening disorder discussed in detail in my customary manner. Patient does verbalize understanding of the plan, there are no apparent barriers to communication. The patient is given the opportunity to ask questions and have them answered to his/her satisfaction Orders: Orders PT Evaluation and Treatment Today M77.10 - Lateral epicondylitis, unspecified elbow Referrals Orthopedics Referral M77.10 - Lateral epicondylitis, unspecified elbow Medications: New meloxicam 7.5 mg PO DAILY 30 tabs 0RF Coding Level of Care Code Est Pt Level 3 (81240) Diagnoses Lateral epicondylitis of left elbow M77.12 Laterality: left
== END 2023-04-23 10:44 | disposition home or self-care (01) ==
PROVIDERS: PCP Family Medicine; Visit Provider Physician Assistant
DX: M77.12 Lateral epicondylitis, left elbow (principal)
CPT/HCPCS: 99213

== ENCOUNTER 2023-04-24 15:52 | Outpatient (REF) | payer OTHER, SELFPAY ==
--- NOTE | ~2023-04-24 | CT_ITS ---
EXAMINATION: CT KIDNEY STONE CLINICAL INFORMATION: Abdominal pain. Flank pain. Recurrent Urinary tract infection COMPARISON: Previous renal ultrasound January [address] of the abdomen and pelvis May 2022 TECHNIQUE: Axial images through the abdomen and pelvis without oral or IV contrast. Sagittal and coronal reconstructions on the technologist workstation were performed. This CT examination was performed using dose optimization techniques as appropriate, variously including the following: *Automated exposure control *Adjustment of mA and/or kV according to patient size (this includes techniques or standardized protocols for targeted exams where dose is matched to indication/reason for exam; i.e. extremities or head) *Use of iterative reconstruction technique DLP 4 1 7 mgy/cm FINDINGS: Moderate right hydronephrosis and ureteral dilatation from a 3 x 7 mm right proximal ureteral stone. High attenuation seen in dilated right ureter just proximal to the stone. This may represent small stone/gravel. Differential would include hemorrhage, infection and mass. The remainder of the right ureter does not appear dilated. Small bilateral renal stones, largest measuring 2 mm. Bladder empty and not well evaluated. The lung bases are clear. The liver, gallbladder, pancreas, and adrenal glands are unremarkable. Small and large bowel is unremarkable. The appendix is unremarkable. The uterus and adnexa are unremarkable. No hernia. No ascites or adenopathy. Vascular structures are unremarkable Bony structures are unremarkable. CT/CT kidney stone IMPRESSION: Moderate right hydronephrosis and ureteral dictation from a 3 x 7 mm right proximal ureteral stone. High attenuation in the right ureter proximal to the stone. Differential would include a small stone or gravel, blood clot, infection and mass. Small bilateral renal stones.
== END 2023-04-24 15:53 | disposition home or self-care (01) ==
LOC: HO.CT 15:52
PROVIDERS: PCP Family Medicine; Visit Provider Nurse Practitioner Family
DX: R10.9 Unspecified abdominal pain (principal); N20.0 Calculus of kidney; N39.0 Urinary tract infection, site not specified; Z87.448 Personal history of other diseases of urinary system
CPT/HCPCS: 74176

== ENCOUNTER 2023-04-29 15:52 | Outpatient (AMB) | payer OTHER, SELFPAY ==
--- NOTE | 2023-04-29 15:53 | MHC.OFFVIS ---
Intake Intake Visit Reasons: 1m/CT(set) Intake Note: Patient presents for follow up ct scan/kidney stone (imaging 04/24/23) Urology Medications: none Blood thinners: none Tanning Salon Attendant Required: No Accompanied by: Self / Same As Patient Allergies Sulfa (Sulfonamide Antibiotics) Allergy (Verified 04/29/23 19:53) Chest Pain cefuroxime Adverse Reaction (Verified 04/29/23 19:53) Fever nitrofurantoin Allergy (Severe, Uncoded 04/29/23 19:53) Difficulty Breathing Medication List - Last Reconciled 04/29/23 by THEODORE Rose- bupropion HCl 100 mg PO DAILY citalopram 1 tab PO BEDTIME epinephrine (EpiPen 2-Malik) 0.3 mg (0.3 mL) IM Q4H PRN meloxicam 7.5 mg PO DAILY methylphenidate HCl ER (Concerta) 27 mg PO QAM omeprazole 20 mg PO DAILY PRN HPI HPI Comments History of Present Illness Details Iman is a pleasant 48-year-old female patient of Dr. Wilson. She presents to the office for a follow up of her history of nephrolithaisis. Of note, patient was seen approximately 3 months ago the at which time renal ultrasound results reviewed with the patient and noted small bilateral nonobstructing nephrolithiasis at which time plan was to continue with surveillance monitoring. However, approximately 1 month ago patient called office for further assessment and evaluation. She reported to be prescribed amoxicillin b.i.d. x7 days for E coli in her urine by her PCP however upon completion of antibiotics she continued to feel UTI like symptoms as well as right-sided flank pain. Given most recent ultrasound noting bilateral nonobstructing renal stones patient was prescribed tamsulosin and prednisone in attempt to possibly pass any stones given lower urinary tract symptoms as well as right-sided flank pain patient had been experiencing. Orders were obtained for another urine culture that was noted to be negative. Despite completion of prednisone and Flomax patient continue with right-sided flank pain at which time CT KUB was ordered for further assessment evaluation. These results reviewed with the patient today. Moderate right hydronephrosis and ureteral dilatation from a 3 x 7 mm right proximal ureteral stone. High attenuation seen in dilated right ureter just proximal to the stone. This may represent small stone/gravel. Differential would include hemorrhage, infection and mass. The remainder of the right ureter does not appear dilated. Small bilateral renal stones, largest measuring 2 mm. Bladder empty and not well evaluated. When asked patient reports right-sided flank pain has since subsided however she continues with urinary frequency. She otherwise dysuria, foul smelling urine, changes to urinary stream, flank pain, fever, and or chills. She does have a previous history of pyelonephritis. Discussed surgical intervention given obstructing stone. Discussed at length risks and benifits of cystoscopy, retrograde, ureteroscopy, possible lithotripsy/stone basketing and stent placement on the right side verses right-sided ESWL. In office urinalysis results reviewed with the patient today. All questions were answered. She endorses compliance with vitamin B6 daily. Discussed and stressed the importance of drinking plenty of water daily as well as adding 1 oz of lemon juice to water daily. [facility] Medical History Lateral epicondylitis Pyelonephritis Constipation Renal and ureteric calculus Hematuria due to acute cystitis No known health problems Social History Household Members: Spouse and Children [facility] Are you a primary acute care physical therapist to a significant other at home: Yes Do you presently have visiting nurse or other home services: No Alcohol intake: current Alcohol intake frequency: a few times a month Patient Tobacco Use Status: Current someday Tobacco user Tobacco use type: Cigarette service: No Current occupational status: employed Physical Exam Const General: cooperative, healthy appearing, comfortable, no acute distress, well developed, alert and awake Nutritional Appearance: average body habitus Orientation/consciousness: patient oriented x3 Limitations: no limitations HEENT Head: Yes normal to inspection, Yes normocephalic and Yes atraumatic Ears: hearing grossly normal bilaterally Eyes General: appearance normal, both eyes and all related structures Neck Neck: Yes normal visual inspection and Yes trachea midline Chest Chest palpation & inspection: normal inspection of the chest Resp Effort & Inspection: normal respiratory effort Cardio Rate: regular rate GI Other: non tender non distended Inspection: Yes normal to inspection General: Yes no CVA tenderness Back/Spine/Pelvis Back: no CVA tenderness Skin General skin exam: no rashes or lesions noted Neuro General: patient oriented x3 Extrem General: Yes normal to inspection and Yes full ROM Psych Appearance: grossly normal and well kempt Mental Status: mental status grossly normal Speech and movement: Normal speech and movement present and Clear speech present Affect: normal affect Attitude: cooperative Thought process: Normal thought process present Thought content: Normal thought content present Insight: Good insight present (Psych) Judgement: Good judgement present (Psych) Results AMB Urinalysis, Automated UA Leukoctes 0 Blue/uL Last Edit by [employer] on 04/29/23 16:11 UA Nitrite Negative Last Edit by [employer] on 04/29/23 16:11 UA Urobilinogen 0.2 mg/dL Last Edit by [employer] on 04/29/23 16:11 UA Protein 15 mg/dL Last Edit by [employer] on 04/29/23 16:11 UA pH 7.0 Last Edit by [employer] on 04/29/23 16:11 UA Blood 0 Gab/uL Last Edit by [employer] on 04/29/23 16:11 UA Specific [place] 1.015 Last Edit by [employer] on 04/29/23 16:11 UA Ketone Negative Last Edit by [employer] on 04/29/23 16:11 UA Bilirubin 0 mg/dL Last Edit by [employer] on 04/29/23 16:11 UA Glucose 0 mg/dL Last Edit by [employer] on 04/29/23 16:11 Results Reviewed Results Reviewed: Laboratory Last Values Urine pH (Auto) 7.0 04/29/23 15:55 Specific [place] (Auto) 1.015 04/29/23 15:55 Urine Protein (Auto) 15 mg/dL 04/29/23 15:55 Glucose (UA)(Auto) 0 mg/dL 04/29/23 15:55 Urine Ketones (Auto) Negative 04/29/23 15:55 Urine Blood (Auto) 0 Gab/uL 04/29/23 15:55 Urine Nitrite (Auto) Negative 04/29/23 15:55 Urine Bilirubin (Auto) 0 mg/dL 04/29/23 15:55 Urine Urobilinogen (Auto) 0.2 mg/dL 04/29/23 15:55 Leukocyte Esterase (Auto) 0 Blue/uL 04/29/23 15:55 Date of Service: 04/24/23 Procedure(s): CT kidney stone FINDINGS: Moderate right hydronephrosis and ureteral dilatation from a 3 x 7 mm right proximal ureteral stone. High attenuation seen in dilated right ureter just proximal to the stone. This may represent small stone/gravel. Differential would include hemorrhage, infection and mass. The remainder of the right ureter does not appear dilated. Small bilateral renal stones, largest measuring 2 mm. Bladder empty and not well evaluated. The lung bases are clear. The liver, gallbladder, pancreas, and adrenal glands are unremarkable. Small and large bowel is unremarkable. The appendix is unremarkable. The uterus and adnexa are unremarkable. No hernia. No ascites or adenopathy. Vascular structures are unremarkable Bony structures are unremarkable. IMPRESSION: Moderate right hydronephrosis and ureteral dilitation from a 3 x 7 mm right proximal ureteral stone. High attenuation in the right ureter proximal to the stone. Differential would include a small stone or gravel, blood clot, infection and mass. Small bilateral renal stones. Assessment & Plan Assessment & Plan (1) Calculus of proximal right ureter: Code(s): N20.1 - Calculus of ureter (2) Hydronephrosis: Code(s): N13.30 - Unspecified hydronephrosis Plan In office urinalysis results reviewed the patient today; as noted above. Recent CT imaging results reviewed with the patient today; as noted above. Discussed right-sided cystoscopy, retrograde, ureteroscopy, possible lithotripsy/stone basketing and stent on the right side verses Right sided ESWL; discussed risks and benefits of both surgical interventions. Discussed seeking emergency room care if symptoms worsen. Educated, encouraged, instructed on importance of continuing to drink plenty of water daily. Will schedule for- cystoscopy, retrograde, ureteroscopy, possible lithotripsy/stone basketing and stent on the right side as discussed with Dr. Belcher Follow-up status post surgical procedure per Dr. Belcher's orders; or sooner with any issues, concerns, and or questions. Orders: Orders AMB Urinalysis Automated Today Z13.9 - Encounter for screening, unspecified Patient Instructions: The patient had an opportunity to ask questions regarding the treatment plan. All questions were answered. Physical exam, labs, and imaging were discussed and reviewed in detail. As well as risks, benefits, and discussion of treatment choices. No major barriers to understanding were identified. The patient expressed understanding and agreement with the above treatment plan. The patient was made aware they should contact our office by phone for worsening of their current condition, the appearance of new symptoms, or with any questions or concerns. Compliance is encouraged with any medications and follow up testing that is ordered. It is a privilege to be allowed the opportunity to participate in? your urological care.? Again, if you have any questions or concerns If you have any questions or concerns please do not hesitate to contact me. The office is [phone]. This note is constructed using voice recognition software. While every effort has been made to ensure accuracy vice president industrial relations errors may have been included. Yours sincerely, THEODORE Rose-RANDY Coding Level of Care Code Est Pt Level 4 (38153) Diagnoses Calculus of proximal right ureter N20.1 Hydronephrosis N13.30
== END 2023-04-29 16:46 | disposition home or self-care (01) ==
PROVIDERS: PCP Family Medicine; Visit Provider Nurse Practitioner Family
DX: N20.1 Calculus of ureter (principal); N13.30 Unspecified hydronephrosis
CPT/HCPCS: 99214

== ENCOUNTER → 2023-04-29 15:52 | Outpatient (BNVA) | payer OTHER, SELFPAY | PROVIDERS: PCP Family Medicine; Visit Provider Nurse Practitioner Family | DX: N13.2 Hydronephrosis with renal and ureteral calculous obstruction (principal) | CPT/HCPCS: 81003; 99212 ==

== ENCOUNTER 2023-05-04 11:35 | Day surgery (SDC) | payer OTHER, SELFPAY ==
--- NOTE | ~2023-05-04 | FL_ITS ---
EXAMINATION: XR FLUOROSCOPY WITH IMAGES CLINICAL INFORMATION: Cystoscopy, ureteroscopy, retrograde, laser. COMPARISON: None available. TECHNIQUE: Fluoroscopy Supervised By: Dr. Arturo Belcher. Fluoroscopy Time: 31.9 seconds. Cumulative Dose: 6.69 mGy. DAP: None available Images: 2. FINDINGS: Fluoroscopy guidance for right internal ureteral stent placement FL/FL guidance in OR IMPRESSION: Fluoroscopy guidance for urology procedure
[2023-05-04 12:36] VITALS: BMI 22.2
[2023-05-04 13:21] VITALS: BP 115/77; PULSE 65; RESP 16; TEMP 36.2; O2SAT 99
--- NOTE | 2023-05-04 14:28 | PC.NURSE ---
Care transitioned to Missy MCLEAN (PACU)
--- NOTE | 2023-05-04 15:33 | MHC.SHP ---
Pre-Procedural Eval Section A Date of Service: 05/04/23 The patient is an INPATIENT: No Changes since office visit: No Cold of Flu in the past 2 weeks, No New Medical Problems, No Changes in Medication and No Patient answered all questions The History & Physical has been completed within 30 days and I have reviewed it.: Yes Section B Chief Complaint: Calculus of kidney Details of Present Illness: right mid ureteric stone Relevant Family History (Specify if Yes): No Relevant Social History: None Present Medications: see Short Stay Collaborative assessment Medical History: No relevant PMH History of Previous Operations: Relevant previous surgery/procedure and date(s) Allergies: Allergies Allergy/AdvReac Type Severity Reaction Status Date / Time Sulfa (Sulfonamide Allergy Chest Pain Verified 05/04/23 13:24 Antibiotics) cefuroxime AdvReac Fever Verified 05/04/23 13:24 nitrofurantoin Allergy Severe Difficulty Uncoded 05/04/23 13:24 Breathing Review of Systems Sugical H&P ROS: Negative: Constitution, Cardiovascular, Respiratory, Neurological, Psychiatric, Hem-Onc, Allergic/Immunologic, Gastrointestinal, Genitourinary, Musculoskeletal, Integumentary, Endocrine and Eyes/Ears/Nose/Throat Exam Surgical H&P Exam: Normal: HEENT, Normal: Heart, Normal: Lungs, Normal: Extremities, Normal: Abdomen, Normal: Skin and Normal: Neurological Plan Diagnosis/Plan: Unchanged ( cystoscopy, right retrograde, right ureteroscopy with laser lithotripsy and stent placement) I have reviewed the history and physical and performed a pertinent physical examination on my patient. No changes have occurred unless specified. Time Spent With Patient Time: Total time managing care of this patient today ____ minutes.
--- NOTE | 2023-05-04 15:34 | HO.ANESPROP2 ---
HPI - Anesthesia Eval Consult details Narrative: for cysto, retrogr, laser PMFSH Active Problems Active Problems: All Active Problems Hydronephrosis (Acute) Calculus of proximal right ureter (Acute) Bee sting allergy (Acute) Bilateral kidney stones (Acute) Recurrent UTI (Acute) History of pyelonephritis (Acute) Flank pain (Acute) Pyelonephritis (Acute) Lateral epicondylitis (Acute) Past Medical History Medical History Lateral epicondylitis Pyelonephritis Constipation Renal and ureteric calculus Hematuria due to acute cystitis No known health problems Patient : No Family History Family history of problems with anesthesia: No Surgical History Surgical History (Updated 05/04/23 @ 11:50 by Eulalia Cheek RN) Hx of tubal ligation History of Problems with Anesthesia: No Social History Social History Household Members: Spouse and Children Housing: Condominium Are you a primary acute care occupational therapist to a significant other at home: Yes Do you presently have visiting nurse or other home services: No Alcohol intake: current Alcohol intake frequency: holidays/special occasions only Patient Tobacco Use Status: Never used Tobacco Tobacco use type: Cigarette Use of substances other than those prescribed or required for medical reasons: No Are you DNR?: No Advance Directives: No Advance Directives Information Provided: Yes service: No Current occupational status: employed Meds Allergies Allergy/AdvReac Type Severity Reaction Status Date / Time Sulfa (Sulfonamide Allergy Chest Pain Verified 05/04/23 13:24 Antibiotics) cefuroxime AdvReac Fever Verified 05/04/23 13:24 nitrofurantoin Allergy Severe Difficulty Uncoded 05/04/23 13:24 Breathing Active Medications: Current Medications Levofloxacin (Levaquin) 500 mg in 100 mls @ 100 mls/hr IV PREOP ONE Stop: 05/04/23 16:17 Home Medications Medication Instructions Recorded Confirmed Last Taken Type bupropion HCl 100 mg tablet,12 hr 100 mg PO DAILY 02/19/21 05/04/23 05/03/23 History sustained-release citalopram 10 mg tablet 1 tab PO BEDTIME 10/10/21 05/04/23 05/01/23 History methylphenidate HCl 27 mg 27 mg PO QAM 11/15/21 05/04/23 05/03/23 History tablet,extended release 24 hr (Concerta) Exam Exam Date and Time: May 04, 2023 1534 Height,Weight and Vital Signs: Height 5 ft 10 in Weight 70.307 kg Last Vital Signs Temp 97.2 F 05/04/23 13:21 Pulse 65 05/04/23 13:21 Resp 16 05/04/23 13:21 BP 115/77 05/04/23 13:21 Pulse Ox 99 05/04/23 13:21 O2 Del Method Room Air 05/04/23 13:21 Airway Mallampati Class: I TM Dist: >3cm Neck ROM: Full Loose/Missing/Broken Teeth: No Heart: ok Lungs: ok Assessment and Plan Assessment Anesthesia Assessment: Anesthesia Plan Discussed and Chart Reviewed Final Anesthetic Review Family History of Problems with Anesthesia: No History of Problems with Anesthesia: No NPO: Yes ASA Class: II Final Preanesthetic Review: No Changes in Pt Med Stat, Meds/Allgs Chart Reviewed, Consent Obtained/Reviewed and Anes Risks/Benef Reviewed Patient Risk: Low Procedure Risk: Low Anesthetic Plan Anesthetic Plan: GA and Agree w/ Assess. and Plan Disposition: Standard PACU
[2023-05-04] MEDS: levoFLOXacin/D5W 500 MG/100 ML PIGGYBACK 100 MG IV (15:53)
[2023-05-04 16:48] VITALS: BP 97/54; PULSE 80; RESP 14; TEMP 36.1; O2SAT 96
[2023-05-04 16:53] VITALS: BP 98/61; PULSE 76; RESP 14; O2SAT 95
--- NOTE | 2023-05-04 16:56 | W.PM.OPN ---
Operative Note Operative Note Date of Service: 05/04/23 Narrative: PreOperative Diagnosis: right upper ureteric stone Post Operative Diagnosis: right upper ureteric stone Procedure: - cystoscopy, right retrograde - right dilatation of ureteric orifice under fluoroscopy - right rigid ureteroscopy, laser lithotripsy followed by right flexible ureteroscopy with laser lithotripsy - right stent placement Surgeon: Dr Arturo Belcher Anesthesia: General Indications for procedure: ureteric stone junction between upper and mid right ureter Procedure: After informed consent was verified patient was brought to the operating placed in supine position. Anesthesia was administered per protocol. Patient was placed in modified dorsal lithotomy position and prepped and draped in a sterile fashion. Safety pause time-out and side of surgery confirmed. Antibiotics confirmed. 22 Frisian cystoscope was inserted per urethra. Bladder was normal in its entirety. Both ureteric orifices were in normal position. The right ureteric orifice was cannulated and a retrograde examination was performed. filling defects seen junction between right upper and mid ureter. A Sensor guidewire was placed up to the level of the renal pelvis under fluoroscopy. navigating stone was difficult. Wire was switched to an angled glide. Lubricated contrast was place to allow wide to slide past stone.The rigid cystoscope was removed and the inner cannula of ureteric access sheath was used under fluoroscopy to dilate the ureteric orifice. The rigid ureteral scope was placed alongside the wire. Stone was encountered after area of narrowing. Laser was broken using 360 micron fiber. Stone migrated back and renal pelvis. The digital flexible ureteral scope was placed. Stone was encountered within the midpole. Was broken further into small pieces. Decision was made to place stent At the completion of the stone procedure a Sensor wire was placed back into the renal pelvis. A 6 Frisian by 28 cm double-J stent was placed into the renal pelvis and bladder under a combination of fluoroscopy and direct visualization. The symphisis pubis was used as a radiographic marker to release the stent and good coil was seen within the bladder confirming position The bladder was emptied. The patient tolerated the procedure well and was extubated in the operating room, and transferred in stable condition to the recovery area. Pathology: Drains: stent
[2023-05-04 16:58] VITALS: BP 115/76; PULSE 68; RESP 14; O2SAT 98
[2023-05-04] MEDS: Phenazopyridine HCL 100 MG TABLET PO (17:02)
[2023-05-04 17:03] VITALS: BP 118/82; PULSE 60; RESP 16; O2SAT 98
[2023-05-04 17:18] VITALS: BP 128/60; PULSE 62; RESP 16; TEMP 36.1; O2SAT 96
== END 2023-05-04 17:31 | disposition home or self-care (01) ==
PROVIDERS: PCP Family Medicine; Visit Provider Urology
PROC: (CPT 52356; principal; 2023-05-04 15:30)
DX: N20.1 Calculus of ureter (principal); N20.0 Calculus of kidney; N13.30 Unspecified hydronephrosis; Z79.899 Other long term (current) drug therapy; Z88.2 Allergy status to sulfonamides; Z88.8 Allergy status to other drugs, medicaments and biological substances; F17.210 Nicotine dependence, cigarettes, uncomplicated
CPT/HCPCS: 52356; C1758; C1769; C2617; J1885; J1956; J2250; J2405; J3010; Q9967

== ENCOUNTER → 2023-05-04 11:35 | Outpatient (BNV) | payer OTHER, SELFPAY | PROVIDERS: PCP Family Medicine; Visit Provider Urology | DX: N20.1 Calculus of ureter (principal) | CPT/HCPCS: 52356; 74420 ==

== ENCOUNTER 2023-05-12 13:06 | Outpatient (AMB) | payer OTHER, SELFPAY ==
--- NOTE | 2023-05-12 13:07 | A.OFFVIS_ITS ---
Intake Intake Visit Reasons: Stent removal Intake Note: Patient presents today for a CYSTOSCOPY Procedure: Meds: Tamsulosin, Pyridium & Naproxen Allergies to Antibiotic: Sulfa, Nitro & Cefuroxime Blood Thinner: None Urinalysis test cleared for Cysto Disposable Uro-G Cystoscope Cannula: Lot: [id number] Exp: 11/05/2024 M[employer] Fighter Required: No Accompanied by: Self / Same As Patient Allergies Sulfa (Sulfonamide Antibiotics) Allergy (Verified 05/04/23 13:24) Chest Pain cefuroxime Adverse Reaction (Verified 05/04/23 13:24) Fever nitrofurantoin Allergy (Severe, Uncoded 05/04/23 13:24) Difficulty Breathing HPI HPI Comments History of Present Illness Details Iman is a very pleasant female. She is a patient of Dr. Wilson. She seen for the following urologic conditions - nephrolithiasis - pyelonephritis Here for cystoscopy stent removal Trimethoprim given for 90 days suppression Nephrolithiasis Prior presentation with pyelonephritis Imaging - 04/20 CT scan 7 mm right proximal uret renetta stone Intervention - 05/21 ureteroscopy right side [facility] Medical History Lateral epicondylitis Pyelonephritis Constipation Renal and ureteric calculus Hematuria due to acute cystitis No known health problems Surgical History (Updated 05/04/23 @ 11:50 by Eulalia Cheek RN) Hx of tubal ligation Social History Household Members: Spouse and Children Housing: Condominium Are you a primary lpn care manager to a significant other at home: Yes Do you presently have visiting nurse or other home services: No Alcohol intake: current Alcohol intake frequency: holidays/special occasions only Comment: none Patient Tobacco Use Status: Never used Tobacco Tobacco use type: Cigarette service: No Current occupational status: employed Review of Systems Const Denies chills and Denies fever(s) Card Reports no additional complaints and Denies syncope Resp Denies cough GI Denies abdominal pain and Denies heartburn Reports as per HPI and Denies change in libido Neuro Denies syncope Psych Denies change in libido Endo Denies change in libido Physical Exam Const General: cooperative, healthy appearing, comfortable and no acute distress Orientation/consciousness: patient oriented x3 HEENT Face and sinus: Yes normal facial exam Mouth: moist mucous membranes Neck Neck: Yes normal visual inspection, Yes full ROM and Yes trachea midline Chest Chest palpation & inspection: normal inspection of the chest Resp Effort & Inspection: normal respiratory effort, able to speak in complete sentences and no respiratory distress GI Inspection: Yes normal to inspection Back/Spine/Pelvis Cervical Spine: normal cervical lordosis Thoracic/Lumbar Spine: thoracic and lumbar spine normal to inspection Skin General skin exam: no rashes or lesions noted Neuro General: patient oriented x3, gait normal, tone normal and moves all extremities Extrem General: Yes normal to inspection and Yes capillary refill normal Office Procedures Cystoscopy Consent Discussed risk and benefit or proposed procedure with the patient. Information consent for procedure given to the patient. Discussed technical aspects, risks, benefits and alternatives in full. Addressed all of the patient's questions and concerns regarding the procedure. The patient demonstrated knowledge and understanding. They wish to proceed with this procedure. Preparation The patient was prepped in the usual manner. A telephone exchange operator was present and in the room. Genitalia was prepped with betadine solution in a sterile manner. Lidocaine Jelly 2% was placed into the urethra and 16Fr flexible Olympus cystoscope was inserted into the meatus after adequate lubrication. Procedure A well lubricated 16 Yi cystoscope was placed No abnormality noted of urethra during placement Indwelling stent seen within bladder emerging from right ureteric orifices The stent was grasped with a 3 prong grasper and removed without difficulty The patient tolerated the procedure well [id number] with stent removal DISPOSABLE SCOPE URO-G FLEXIBLE SCOPE Procedure code (CPT) selection complete Office Meds lidocaine HCl 2 % mucosal jelly in applicator Performing Provider: Arutro Belcher MD [facility] Administered by: Mariama Winter RN on 05/12/23 13:21 Dose Route Admin Location Dispensed Lot Number Expiration Date [facility] Pouch Making Machine Operator 10 mL intra-urethral 10 mL naproxen 500 mg tablet Performing Provider: Arturo Belcher MD Performing Location: [facility] Administered by: Mariama Winter RN on 05/12/23 13:21 Dose Route Admin Location Dispensed Lot Number Expiration Date NDC Pouch Making Machine Operator 500 mg PO 1 tab ciprofloxacin HCl 500 mg tablet Performing Provider: Arturo Belcher MD Performing Location: [facility] Administered by: Mariama Winter RN on 05/12/23 13:21 Dose Route Admin Location Dispensed Lot Number Expiration Date NDC Pouch Making Machine Operator 500 mg PO 1 tab Results AMB Urinalysis, Automated UA Leukoctes 500 Blue/uL Last Edit by Beryl Adan [facility] on 05/12/23 13:42 3+ Beryl Adan 05/12/23 13:42 UA Nitrite Negative Last Edit by Beryl Adan [facility] on 05/12/23 13:42 UA Urobilinogen 0.2 mg/dL Last Edit by Beryl Adan [facility] on 05/12/23 13:4 2 UA Protein 100 mg/dL Last Edit by Beryl Adan [facility] on 05/12/23 13:42 2+ Beryl Adan 05/12/23 13:42 UA pH 7.5 Last Edit by Beryl Adan [facility] on 05/12/23 13:42 UA Blood 200 Gab/uL Last Edit by Beryl Adan [facility] on 05/12/23 13:42 3+ Beryl Adan 05/12/23 13:42 UA Specific [place] 1.015 Last Edit by Beryl Adan [facility] on 05/12/23 13: 42 UA Ketone Negative Last Edit by Beryl Adan [facility] on 05/12/23 13:42 UA Bilirubin 0 mg/dL Last Edit by Beryl Adan [facility] on 05/12/23 13:42 UA Glucose 0 mg/dL Last Edit by Beryl Adan [facility] on 05/12/23 13:42 Results Reviewed Results Reviewed: Laboratory Last Values Urine pH (Auto) 7.5 05/12/23 13:40 Specific [place] (Auto) 1.015 05/12/23 13:40 Urine Protein (Auto) 100 mg/dL 05/12/23 13:40 Glucose (UA)(Auto) 0 mg/dL 05/12/23 13:40 Urine Ketones (Auto) Negative 05/12/23 13:40 Urine Blood (Auto) 200 Gab/uL 05/12/23 13:40 Urine Nitrite (Auto) Negative 05/12/23 13:40 Urine Bilirubin (Auto) 0 mg/dL 05/12/23 13:40 Urine Urobilinogen (Auto) 0.2 mg/dL 05/12/23 13:40 Leukocyte Esterase (Auto) 500 Blue/uL 05/12/23 13:40 Assessment & Plan Assessment & Plan (1) Hydronephrosis: Code(s): N13.30 - Unspecified hydronephrosis (2) Recurrent UTI: Code(s): N39.0 - Urinary tract infection, site not specified (3) Pyelonephritis: Code(s): N12 - Tubulo-interstitial nephritis, not specified as acute or chronic Plan Two month follow-up ultrasound Orders: Orders AMB Cystoscopy 05/12/23 N20.0 - Calculus of kidney AMB Urinalysis Automated 05/12/23 Z13.9 - Encounter for screening, unspecified US renal BI 2 Months N12 - Tubulo-interstitial nephritis, not specified as acute or chronic Medications: New trimethoprim 100 mg PO DAILY 90 tabs 1RF 90 days N12 - Tubulo-interstitial nephritis, not specified as acute or chronic, R33.9 - Retention of urine, unspecified Patient Instructions: Imaging studies, laboratory and physical exam results were discussed and reviewed in detail. No major barriers to patient understanding were identified. An opportunity to ask questions regarding the treatment plan was provided. All questions were answered. The patient expressed understanding and agreement with the above treatment plan. The patient is aware they should contact our office by phone for worsening of their current condition or the appearance of new urologic symptoms. Compliance is encouraged with any medications and followup testing that is ordered. It is a privilege to participate in the urologic care of your patient. If you have any questions or concerns regarding treatment for the above conditions, or other urologic issues, please do not hesitate to contact me. The office telephone contact is [phone]. This note is constructed using voice recognition software. While every effort has been made to ensure accuracy asphalt roller person errors may have been included. Yours sincerely, Dr Arturo Belcher MD, [facility] - Urology Providers of Expert, Compassionate Care for the Genitourinary System Coding Level of Care Code Est Pt Level 3 (60630) Diagnoses Hydronephrosis N13.30 Recurrent UTI N39.0 Pyelonephritis N12 CPT Codes Cystoscopy - CPT: 09450-[id number] with stent removal ([id number])
== END 2023-05-12 14:21 | disposition home or self-care (01) ==
PROVIDERS: PCP Family Medicine; Visit Provider Urology
DX: N13.30 Unspecified hydronephrosis (principal); N39.0 Urinary tract infection, site not specified; N12 Tubulo-interstitial nephritis, not specified as acute or chronic
CPT/HCPCS: 52310; 99213

== ENCOUNTER → 2023-05-12 13:06 | Outpatient (BNVA) | payer OTHER, SELFPAY | PROVIDERS: PCP Family Medicine; Visit Provider Urology | DX: N12 Tubulo-interstitial nephritis, not specified as acute or chronic (principal); N13.30 Unspecified hydronephrosis; Z46.6 Encounter for fitting and adjustment of urinary device | CPT/HCPCS: 52310; 81003; 99212 ==

== ENCOUNTER 2023-07-16 15:24 | Outpatient (REF) | payer OTHER, SELFPAY ==
--- NOTE | ~2023-07-16 | US_ITS ---
EXAMINATION: US RETROPERITONEAL LIMITED (RENAL ONLY) CLINICAL INFORMATION: Tubulointerstitial nephritis, not specified as acute or chronic. Calculus of kidney. COMPARISON: CT stone study 04/24/2023. Renal ultrasound 01/28/2023 and 11/11/2021. TECHNIQUE: Real-time imaging of the kidneys. Limited visualization due to bowel gas. FINDINGS: RIGHT KIDNEY: 12.1 x 4.2 x 5.2 cm (SAG x AP x TRV). Upper pole 0.3 cm and 0.3 cm calculi. No hydronephrosis. Possible duplicated right renal collecting system difficult to confirm due to limited visualization. LEFT KIDNEY: 11.8 x 4.7 x 5.2 cm (SAG x AP x TRV). Mid pole 0.4 cm and lower pole 0.4 cm calculi. No hydronephrosis. Limited visualization. US/US renal BI IMPRESSION: 1. Bilateral nonobstructive renal calculi. No hydronephrosis. 2. Possible duplicated right renal collecting system difficult to confirm due to limited visualization.
== END 2023-07-16 15:25 | disposition home or self-care (01) ==
LOC: HO.HMGCX 15:24
PROVIDERS: PCP Family Medicine; Visit Provider Urology
DX: N12 Tubulo-interstitial nephritis, not specified as acute or chronic (principal)
CPT/HCPCS: 76775

== ENCOUNTER 2023-07-23 08:10 | Outpatient (RCR) | payer OTHER, SELFPAY | END 2023-11-24 14:27 | disposition home or self-care (01) | LOC: HO.OT 08:10 | PROVIDERS: PCP Family Medicine; Visit Provider Internal Medicine | DX: M77.12 Lateral epicondylitis, left elbow (principal) | CPT/HCPCS: 97140; 97167 ==

== ENCOUNTER 2023-07-23 08:59 | Outpatient (AMB) | payer OTHER, SELFPAY ==
--- NOTE | 2023-07-23 09:00 | A.OFFVIS_ITS ---
Intake Intake Visit Reasons: follow up/US results(set) Intake Note: Patient presents today for a follow-up on: U/S Results Meds- Tamsulosin, Oxybutynin Allergies to Antibiotic- Sulfonamide, Cefuroxime, Nitrofurantion Blood Thinner- None Wellness Nurse Required: No Allergies Sulfa (Sulfonamide Antibiotics) Allergy (Verified 07/23/23 10:50) Chest Pain cefuroxime Adverse Reaction (Verified 07/23/23 10:50) Fever nitrofurantoin Allergy (Severe, Uncoded 07/23/23 10:50) Difficulty Breathing Medication List - Last Reconciled 07/23/23 by THEODORE Rose- citalopram 1 tab PO BEDTIME epinephrine (EpiPen 2-Malik) 0.3 mg (0.3 mL) IM Q4H PRN methylphenidate HCl ER (Concerta) 27 mg PO QAM trimethoprim 100 mg PO DAILY 90 days HPI HPI Comments History of Present Illness Details Iman is a very pleasant 48-year-old female patient of Dr. Wilson. She has a past medical history of pyelonephritis, constipation, and nephrolithiasis. She is being followed up on today via telehealth for her history of nephrolithiasis. Of note, patient was seen approximately 2 months ago in office with Dr. Belcher for a cystoscopy with right-sided ureteral stent removal. In discussion with the patient today she reports noting intermittent bilateral flank pain left side greater than right. Recent renal imaging results reviewed with the patient today. Bilateral nonobstructive renal calculi. No hydronephrosis. Upper pole 0.3 cm and 0.3 cm calculi noted. Left kidney with mid pole 0.4 cm and lower pole 0.4 cm calculi. Discussed further workup with CT KUB given patient reporting bilateral flank pain. However, patient reports episodes are intermittent and relieved with OTC Tylenol and or Motrin and would like to continue with surveillance monitoring at this time. Discussed further metabolic workup with 24 hour urine collection and labs. She is agreeable. Discussed and stressed the importance of drinking plenty of water daily. She otherwise denies urinary urgency, urinary frequency, incontinence, nocturia, hematuria, dysuria, foul smelling urine, changes to urinary stream,fever, and or chills. She is happy with her current voiding parameters. [facility] Medical History Lateral epicondylitis Pyelonephritis Constipation Renal and ureteric calculus Hematuria due to acute cystitis No known health problems Surgical History Hx of tubal ligation Social History Household Members: Spouse and Children Housing: [facility] Are you a primary care nurse rn to a significant other at home: Yes Do you presently have visiting nurse or other home services: No Alcohol intake: current Alcohol intake frequency: holidays/special occasions only Comment: none Patient Tobacco Use Status: Never used Tobacco Tobacco use type: Cigarette service: No Current occupational status: employed Review of Systems Const Reports as per HPI Eyes Reports no additional complaints ENT Reports no additional complaints Card Reports no additional complaints Resp Reports no additional complaints GI Reports as per HPI Reports as per HPI Musc Reports no additional complaints Neuro Reports no additional complaints Psych Reports no additional complaints Endo Reports no additional complaints Yuriy/Lymph Reports no additional complaints Aller/Immun Reports no additional complaints Physical Exam Const General: cooperative Resp Effort & Inspection: able to speak in complete sentences Psych Speech and movement: Clear speech present Attitude: cooperative Thought process: Normal thought process present Thought content: Normal thought content present Insight: Fair insight present (Psych) Judgement: Fair judgement present (Psych) Results Reviewed Results Reviewed: Date of Service: 07/16/23 EXAMINATION: US RETROPERITONEAL LIMITED (RENAL ONLY) FINDINGS: RIGHT KIDNEY: 12.1 x 4.2 x 5.2 cm (SAG x AP x TRV). Upper pole 0.3 cm and 0.3 cm calculi. No hydronephrosis. Possible duplicated right renal collecting system difficult to confirm due to limited visualization. LEFT KIDNEY: 11.8 x 4.7 x 5.2 cm (SAG x AP x TRV). Mid pole 0.4 cm and lower pole 0.4 cm calculi. No hydronephrosis. Limited visualization. IMPRESSION: 1. Bilateral nonobstructive renal calculi. No hydronephrosis. 2. Possible duplicated right renal collecting system difficult to confirm due to limited visualization. Assessment & Plan Assessment & Plan (1) Bilateral kidney stones: Code(s): N20.0 - Calculus of kidney Plan Recent renal ultrasound results reviewed with the patient today; as noted above. Will obtain 24 hour urine collection as well as labs for metabolic workup; this was discussed at length. Will obtain renal ultrasound in 3 months. Discussed, educated, and stressed the importance of drinking plenty of water daily. Follow-up in 3 months with imaging, labs, and Urorisk to be completed prior; or sooner with any issues, concerns, and or questions. Orders: Orders Calcium Today N20.0 - Calculus of kidney Magnesium Today N20.0 - Calculus of kidney Phosphorus Today N20.0 - Calculus of kidney Uric Acid Today N20.0 - Calculus of kidney Vitamin D 25-OH Total Today N20.0 - Calculus of kidney Basic Metabolic Panel Today N20.0 - Calculus of kidney Medications: Discontinued tamsulosin Discontinued Reason: Doctor's Order 0.4 mg PO BEDTIME 14 days 14 caps 0RF tramadol Discontinued Reason: Patient Completed Course 50 mg PO Q6H PRN 8 tabs 0RF pain (scale score 1-3) oxybutynin chloride Discontinued Reason: Doctor's Order 5 mg PO Q8H 10 days 20 tabs 0RF naproxen Discontinued Reason: Patient Completed Course 500 mg PO BID 7 days PRN 14 tabs 0RF pain phenazopyridine (Pyridium) Discontinued Reason: Patient Completed Course 100 mg PO TID 4 days PRN 12 tabs 0RF Spasm Patient Instructions: The patient had an opportunity to ask questions regarding the treatment plan. All questions were answered. Physical exam, labs, and imaging were discussed and reviewed in detail. As well as risks, benefits, and discussion of treatment choices. No major barriers to understanding were identified. The patient expressed understanding and agreement with the above treatment plan. The patient was made aware they should contact our office by phone for worsening of their current condition, the appearance of new symptoms, or with any questions or concerns. Compliance is encouraged with any medications and follow up testing that is ordered. It is a privilege to be allowed the opportunity to participate in? your urological care.? Again, if you have any questions or concerns If you have any questions or concerns please do not hesitate to contact me. The office is [phone]. This note is constructed using voice recognition software. While every effort has been made to ensure accuracy clinic nurse errors may have been included. Yours sincerely, SHERYL Rose Telehealth Telehealth Location of provider rendering services: practice address Location of patient: address on file Patient Identification confirmed using: Name, : Yes Telehealth method: voice only Patient verbally consented to treatment: Yes Patient verbally consented to billing insurance company: Yes Patient informed of any privacy concerns related to visit: Yes Coding Level of Care Code Tele Est Pt Level 3 (60898) Diagnoses Bilateral kidney stones N20.0
== END 2023-07-23 10:40 | disposition home or self-care (01) ==
LOC: HO.HUSH 08:59
PROVIDERS: PCP Family Medicine; Visit Provider Nurse Practitioner Family
DX: N20.0 Calculus of kidney (principal)
CPT/HCPCS: 99213

== ENCOUNTER → 2023-07-23 08:59 | Outpatient (BNVA) | payer OTHER, SELFPAY | PROVIDERS: PCP Family Medicine; Visit Provider Nurse Practitioner Family ==

== ENCOUNTER 2023-08-26 11:41 | Outpatient (REF) | payer OTHER, SELFPAY ==
[2023-08-26 14:09] LABS: Anion Gap 10 (12-20); Blood Urea Nitrogen 8 mg/dL (9-16); Calcium 11.6 mg/dL (8.4-10.2); Carbon Dioxide 30 mmol/L (22-29); Chloride 105 mmol/L (96-108); Estimated Glomerular Filt Rate > 60; Glucose Random 121 mg/dL (60-115); Magnesium 2.3 mg/dL (1.6-2.6); Phosphorus 2.4 mg/dL (2.7-4.5); Potassium 4.3 mmol/L (3.3-5.1); Sodium 141 mmol/L (135-145)
[2023-08-26 14:34] LABS: Vitamin D 25-OH Total 13.5 ng/mL (>30)
[2023-08-26 18:19] LABS: Uric Acid 5.6 mg/dL (2.4-5.7)
[2023-08-29 15:38] LABS: TS Negative Control Passed; TS Panel A 0; TS Panel B 0; TS Positive Control Passed; TSpotTB Negative (Negative)
== END 2023-08-26 11:42 | disposition home or self-care (01) ==
LOC: HO.HMGCLDS 11:41
PROVIDERS: PCP Family Medicine; Referring Provider Nurse Practitioner Family; Visit Provider Family Medicine
DX: Z02.1 Encounter for pre-employment examination (principal); N20.0 Calculus of kidney
CPT/HCPCS: 36415; 80048; 82306; 83735; 84100; 84550; 86481

== ENCOUNTER 2023-08-27 14:17 | Outpatient (REF) | payer OTHER, SELFPAY ==
[2023-08-27 15:49] LABS: Calcium 11.3 mg/dL (8.4-10.2)
[2023-08-27 16:04] LABS: Parathyroid Hormone Intact 218.5 pg/mL (8.7-77.1)
== END 2023-08-27 14:18 | disposition home or self-care (01) ==
LOC: HO.LAB 14:17
PROVIDERS: PCP Family Medicine; Visit Provider Family Medicine
DX: E03.9 Hypothyroidism, unspecified (principal); K59.00 Constipation, unspecified
CPT/HCPCS: 36415; 82310; 83970

== ENCOUNTER 2023-09-22 14:46 | Outpatient (REF) | payer OTHER, SELFPAY | END 2023-09-22 14:47 | disposition home or self-care (01) | LOC: HO.LNP 14:46 | PROVIDERS: Visit Provider Nurse Practitioner Family | DX: Z13.89 Encounter for screening for other disorder (principal) | CPT/HCPCS: 82340; 82507; 82570; 83735; 83945; 83986; 84105; 84133; 84300; 84392; 84560 ==

== ENCOUNTER 2023-12-14 10:04 | Outpatient (REF) | payer OTHER, SELFPAY ==
--- NOTE | ~2023-12-14 | US_ITS ---
EXAMINATION: US RETROPERITONEAL LIMITED (RENAL ONLY) CLINICAL INFORMATION: Calculus of kidney. COMPARISON: Renal ultrasound 07/16/2023. CT kidney stone 04/24/2023. Renal ultrasound 01/28/2023. TECHNIQUE: Real-time imaging of the kidneys. FINDINGS: RIGHT KIDNEY: 12.4 x 4.2 x 5.8 cm (SAG x AP x TRV). The kidney is normal in size, contour, and echogenicity. Renal cortical thickness is normal. No focal parenchymal lesions or hydronephrosis. 2 mm nonobstructing calculus in the upper pole. 2 mm nonobstructing calculus in the lower pole. LEFT KIDNEY: 11.4 x 4.4 x 5.1 cm (SAG x AP x TRV). The kidney is normal in size, contour, and echogenicity. Renal cortical thickness is normal. No focal parenchymal lesions or hydronephrosis. 3 mm nonobstructing calculus in the mid kidney. 4 mm nonobstructing calculus in the lower pole. US/US renal BI IMPRESSION: Bilateral nonobstructing renal calculi.
== END 2023-12-14 10:05 | disposition home or self-care (01) ==
LOC: HO.HMGCX 10:04
PROVIDERS: PCP Family Medicine; Visit Provider Urology
DX: N20.0 Calculus of kidney (principal)
CPT/HCPCS: 76775

== ENCOUNTER 2024-02-01 14:35 | Outpatient (AMB) | payer OTHER, SELFPAY ==
--- NOTE | 2024-02-01 14:46 | A.OFFVIS_ITS ---
Intake Visit Reasons: 1y/US(set) Intake Note: Patient presents today for a follow-up on: U/S Results Meds- none Allergies to Antibiotic- Sulfonamide, Cefuroxime, Nitrofurantion Blood Thinner- None Booky Required: No Allergies Sulfa (Sulfonamide Antibiotics) Allergy (Verified 02/01/24 16:40) Chest Pain cefuroxime Adverse Reaction (Verified 02/01/24 16:40) Fever nitrofurantoin Allergy (Severe, Uncoded 02/01/24 16:40) Difficulty Breathing Medication List - Last Reconciled 02/01/24 by THEODORE Rose- citalopram 1 tab PO BEDTIME epinephrine (EpiPen 2-Malik) 0.3 mg (0.3 mL) IM Q4H PRN HPI Comments Details: Iman is a very pleasant 48-year-old female patient of Dr. Wilson. She has a past medical history of pyelonephritis, constipation, and nephrolithiasis. She presents to the office today for follow-up of her nephrolithiasis. In discussion with the patient today she reports to be doing and feeling well. She reports having had a thyroidectomy since her last office visit here and has been recovering well. She reports up until a month ago she felt the best she had been in a long time however over the last month has been feeling more fatigued. She is unsure if this is related to work or home life. She otherwise denies any bothersome urinary issues or concerns. She denies urinary urgency, urinary frequency, incontinence, nocturia, hematuria, dysuria, foul smelling urine, changes to urinary stream,fever, and or chills. She is happy with her current voiding parameters. Recent renal imaging results reviewed with the patient today. Bilateral kidneys with nonobstructing renal calculi. Right kidney with two 2mm nonobstructing stones, left kidney with 3 mm and 4 mm nonobstructing calculi. Otherwise no hydronephrosis noted bilaterally. In office urinalysis results reviewed with the patient today. She does report a longstanding history of constipation and feels since her thyroidectomy this has gotten somewhat worse. She otherwise offers no other issues or concerns at this time. [facility] Medical History Lateral epicondylitis Pyelonephritis Constipation Renal and ureteric calculus Hematuria due to acute cystitis No known health problems Surgical History Hx of tubal ligation Social History Household Members: Spouse and Children Housing: Condominium Are you a primary animal daycare provider to a significant other at home: Yes Do you presently have visiting nurse or other home services: No Alcohol intake: current Alcohol intake frequency: holidays/special occasions only Comment: none Patient Tobacco Use Status: Never used Tobacco Tobacco use type: Cigarette service: No Current occupational status: employed Review of Systems Const Reports as per HPI Eyes Reports no additional complaints ENT Reports no additional complaints Card Reports no additional complaints Resp Reports no additional complaints GI Reports as per HPI Reports as per HPI Musc Reports no additional complaints Neuro Reports no additional complaints Psych Reports no additional complaints Endo Reports as per HPI Yuriy/Lymph Reports no additional complaints Aller/Immun Reports no additional complaints Physical Exam Const General: cooperative, healthy appearing, comfortable, no acute distress, well developed, alert and awake Orientation/consciousness: patient oriented x3 Limitations: no limitations HEENT Head: Yes normal to inspection, Yes normocephalic and Yes atraumatic Ears: hearing grossly normal bilaterally Eyes General: appearance normal, both eyes and all related structures Neck Neck: Yes normal visual inspection and Yes trachea midline Chest Chest palpation & inspection: normal inspection of the chest Resp Effort & Inspection: normal respiratory effort and able to speak in complete sentences Cardio Rate: regular rate GI Inspection: Yes normal to inspection General: Yes no CVA tenderness Back/Spine/Pelvis Back: no CVA tenderness Skin General skin exam: no rashes or lesions noted Neuro General: patient oriented x3 Extrem General: Yes normal to inspection Psych Appearance: grossly normal and well kempt Mental Status: mental status grossly normal Speech and movement: Normal speech and movement present and Clear speech present Affect: normal affect Attitude: cooperative Thought process: Normal thought process present Thought content: Normal thought content present Insight: Fair insight present (Psych) Judgement: Fair judgement present (Psych) Results AMB Urinalysis, Automated UA Leukoctes 15 Blue/uL Last Edit by Ines Redmond on 02/01/24 14:58 UA Nitrite Negative Last Edit by [employer] on 02/01/24 14:58 UA Urobilinogen 0.2 mg/dL Last Edit by [employer] on 02/01/24 14:58 UA Protein 0 mg/dL Last Edit by [employer] on 02/01/24 14:58 UA pH 7.0 Last Edit by [employer] on 02/01/24 14:58 UA Blood 0 Gab/uL Last Edit by [employer] on 02/01/24 14:58 UA Specific [place] 1.010 Last Edit by [employer] on 02/01/24 14:58 UA Ketone Negative Last Edit by [employer] on 02/01/24 14:58 UA Bilirubin 0 mg/dL Last Edit by [employer] on 02/01/24 14:58 UA Glucose 0 mg/dL Last Edit by [employer] on 02/01/24 14:58 Results Reviewed Results Reviewed: Laboratory Last Values Urine pH (Auto) 7.0 02/01/24 14:57 Specific [place] (Auto) 1.010 02/01/24 14:57 Urine Protein (Auto) 0 mg/dL 02/01/24 14:57 Glucose (UA)(Auto) 0 mg/dL 02/01/24 14:57 Urine Ketones (Auto) Negative 02/01/24 14:57 Urine Blood (Auto) 0 Gab/uL 02/01/24 14:57 Urine Nitrite (Auto) Negative 02/01/24 14:57 Urine Bilirubin (Auto) 0 mg/dL 02/01/24 14:57 Urine Urobilinogen (Auto) 0.2 mg/dL 02/01/24 14:57 Leukocyte Esterase (Auto) 15 Blue/uL 02/01/24 14:57 Date of Service: 12/14/23 EXAMINATION: RENAL US FINDINGS: RIGHT KIDNEY: 12.4 x 4.2 x 5.8 cm (SAG x AP x TRV). The kidney is normal in size, contour, and echogenicity. Renal cortical thickness is normal. No focal parenchymal lesions or hydronephrosis. 2 mm nonobstructing calculus in the upper pole. 2 mm nonobstructing calculus in the lower pole. LEFT KIDNEY: 11.4 x 4.4 x 5.1 cm (SAG x AP x TRV). The kidney is normal in size, contour, and echogenicity. Renal cortical thickness is normal. No focal parenchymal lesions or hydronephrosis. 3 mm nonobstructing calculus in the mid kidney. 4 mm nonobstructing calculus in the lower pole. IMPRESSION: Bilateral nonobstructing renal calculi. Assessment & Plan Assessment & Plan (1) Bilateral kidney stones: Code(s): N20.0 - Calculus of kidney Category: Medical (2) Recurrent UTI: Code(s): N39.0 - Urinary tract infection, site not specified Category: Medical (3) History of pyelonephritis: Code(s): Z87.448 - Personal history of other diseases of urinary system Category: Medical Plan In office urinalysis results reviewed with the patient today; as noted above. Recent renal imaging results reviewed with the patient today; as noted above. Discussed following up with PCP regarding ongoing issues with fatigue as well as constipation Discussed correlation of constipation with recurrent urinary tract infections. Patient currently denies any bothersome urinary issues or concerns. She reports be happy with current voiding parameters. Will obtain BMP, vitamin-D, uric acid, magnesium, and calcium for further a ssessment evaluation. . Discussed, educated, stressed the importance of adequate hydration relation to nephrolithiasis as well as overall health and well-being. Will obtain renal ultrasound in 6 months. Follow-up in 6 months with imaging to be completed prior; or sooner with any issues, concerns, and or questions. Orders: Orders Calcium Today N20.0 - Calculus of kidney Magnesium Today N20.0 - Calculus of kidney Uric Acid Today N20.0 - Calculus of kidney Vitamin D 25-OH Total Today N20.0 - Calculus of kidney US renal BI 6 Months N20.0 - Calculus of kidney AMB Urinalysis Automated Today Z13.9 - Encounter for screening, unspecified Basic Metabolic Panel Today N20.0 - Calculus of kidney Phosphorus Today N20.0 - Calculus of kidney Patient Instructions: The patient had an opportunity to ask questions regarding the treatment plan. All questions were answered. Physical exam, labs, and imaging were discussed and reviewed in detail. As well as risks, benefits, and discussion of treatment choices. No major barriers to understanding were identified. The patient expressed understanding and agreement with the above treatment plan. The patient was made aware they should contact our office by phone for worsening of their current condition, the appearance of new symptoms, or with any questions or concerns. Compliance is encouraged with any medications and follow up testing that is ordered. It is a privilege to be allowed the opportunity to participate in? your urological care.? Again, if you have any questions or concerns If you have any questions or concerns please do not hesitate to contact me. The office is [phone]. This note is constructed using voice recognition software. While every effort has been made to ensure accuracy primer assembler errors may have been included. Yours sincerely, TIFFANIE Rose Coding Level of Care Code Est Pt Level 3 (28562) Complex EM visit Add On G2211 Diagnoses Bilateral kidney stones N20.0 Recurrent UTI N39.0 History of pyelonephritis Z87.448
== END 2024-02-01 15:20 | disposition home or self-care (01) ==
PROVIDERS: PCP Family Medicine; Visit Provider Nurse Practitioner Family
DX: N20.0 Calculus of kidney (principal); N39.0 Urinary tract infection, site not specified; Z87.448 Personal history of other diseases of urinary system; Z13.9 Encounter for screening, unspecified
CPT/HCPCS: 99213; G2211

== ENCOUNTER → 2024-02-01 14:35 | Outpatient (BNVA) | payer OTHER, SELFPAY | PROVIDERS: PCP Family Medicine; Visit Provider Nurse Practitioner Family | DX: N20.0 Calculus of kidney (principal); N39.0 Urinary tract infection, site not specified; Z87.448 Personal history of other diseases of urinary system | CPT/HCPCS: 81003; 99212 ==

== ENCOUNTER 2024-03-18 09:13 | Outpatient (REF) | payer OTHER, SELFPAY ==
--- NOTE | ~2024-03-18 | XR_ITS ---
EXAMINATION: XR SHOULDER, RIGHT CLINICAL INFORMATION: Right shoulder pain. COMPARISON: None available. TECHNIQUE: AP external rotation, Grashey, scapular Y, and axillary views of the right shoulder. FINDINGS: Glenohumeral and acromioclavicular alignment is anatomic with normal joint space. No displaced fracture or dislocation. No abnormal soft tissue calcifications. XR/XR shoulder RT min 2V IMPRESSION: No acute abnormality. Electronically signed by: Porfirio Davidson MD 03/18/2024 11:35 AM EDT
== END 2024-03-18 09:14 | disposition home or self-care (01) ==
LOC: HO.XRAY 09:13
PROVIDERS: PCP Internal Medicine; Visit Provider Physician Assistant
DX: M25.511 Pain in right shoulder (principal)
CPT/HCPCS: 73030; 99202

== ENCOUNTER 2024-03-18 09:53 | Outpatient (AMB) | payer OTHER, SELFPAY ==
--- NOTE | 2024-03-18 09:55 | A.OFFVIS_ITS ---
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 Intake Note: Iman is a 49 year old left hand dominant female who presents today as a new patient with complaints of right shoulder pain. Patient reports she is unsure how she injured her right shoulder. She has para-thyroid surgery in September 2023 causing her calcium dropped and she says her body felt brittle. She says she turned one night on her side sleeping and she heard a pop. She expresses a knot in her shoulder that is pinching a nerve that she has been massaging out. She expresses pain in her bicep with extension and flexion and reaching behind herself. She avoids heavy lifting eith her right arm so her symptoms do not exacerbate. She was doing home exercises at home but her PCP told her to stop so she does not make her shoulder worse. She expresses consistent popping when she rotates her shoulder while laying down. Her pain is starting to radiating into her elbows and her 3rd, 4th, and 5th digits and causing numbness and tingling in those digits. Denies surgery or injections to shoulder. She has not done PT, just home exercises. She has tried ibuprofen but finds no relief. 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 The patient reports that 1 night, she rolled over while sleeping and felt a ?popping? sensation in her right shoulder, and since then she has been experiencing pain and limited range of motion that has worsened with time. Today, patient reports that her pain is excruciating, and then her range of motion is very limited due to this. The patient reports that she feels her functional capacity is significantly affected by this pain. Patient also expresses she has begun experiencing intermittent numbness and tingling in the right hand. No other acute complaints or concerns at this time. [facility] Medical History Lateral epicondylitis Pyelonephritis Constipation Renal and ureteric calculus Hematuria due to acute cystitis No known health problems Surgical History Hx of tubal ligation Social History Household Members: Spouse and Children Housing: [facility] Are you a primary childcare director to a significant other at home: Yes Do you presently have visiting nurse or other home services: No Alcohol intake: current Alcohol intake frequency: holidays/special occasions only Comment: none Patient Tobacco Use Status: Never used Tobacco Tobacco use type: Cigarette service: No Current occupational status: employed Review of Systems Const All systems reviewed & are unremarkable except as noted in HPI and below Physical Exam Vital Signs: BMI result Body Mass Index 20.8 Extrem Other: Right shoulder exam On inspection, there is no visible deformity of the patient's right shoulder No edema, erythema, ecchymosis noted No lacerations, abrasions, open areas No evidence of infection Patient reports diffuse tenderness to palpation right shoulder, worst in the posterior aspect Negative empty can Negative belly press Positive lift-off Positive Ivey Patient does report normal sensation to the tips of all digits of the right hand at this time Patient is able to make a closed fist and extend all digits of the right hand fully and without difficulty Good APB muscle belly firing, good finger cross No evidence of thenar or intrinsic wasting Capillary refill brisk Results Reviewed Results Reviewed: X-rays obtained in the office today and independently reviewed by me, Syed Loyd PA-C, demonstrate no fracture or acute bony abnormality. Assessment & Plan Assessment & Plan (1) Internal derangement of right shoulder: Code(s): M24.811 - Other specific joint derangements of right shoulder, not elsewhere classified Category: Medical (2) Numbness and tingling of right hand: Code(s): R20.0 - Anesthesia of skin; R20.2 - Paresthesia of skin Category: Medical Plan 1. Internal derangement of right shoulder Ongoing since approximately October At this time, due to her physical exam findings concerning for potential impingement syndrome versus rotator cuff injury, patient is referred for MRI of right shoulder to assess the soft tissue structures of this point Patient is also referred to physical therapy for range of motion, strengthening, stabilization of the right shoulder joint to hopefully be able to improve her functional capacity while awaiting MRI Patient is amenable to this plan 2. Numbness and tingling of right upper extremity Symptoms intermittent, but daily, worse at night Patient is offered nerve conduction study at this time, but refuses, stating she would like to get assessment and treatment for her shoulder 1st to see if this helps to resolve her numbness and tingling Patient states that if the numbness and tingling continues, she will present for repeat evaluation of numbness and tingling in the right hand, and will get nerve conduction study Patient will follow-up after MRI for results review and discussion of further treatment options, sooner with any acute concerns Orders: Orders XR shoulder RT min 2V 03/18/24 INGRID Phelps-Trisha M25.511 - Pain in right shoulder MR shoulder RT wo con 03/18/24 INGRID Arcos M24.811 - Other specific joint derangements of right shoulder, not elsewhere classified, M77.8 - Other enthesopathies, not elsewhere classified PT Evaluation and Treatment 03/18/24 INGRID Arcos M24.811 - Other specific joint derangements of right shoulder, not elsewhere classified Coding Level of Care Code New Pt Level 3 (08522) Diagnoses Internal derangement of right shoulder M24.811 Numbness and tingling of right hand R20.0; R20.2
[2024-03-18 09:57] VITALS: BMI 20.8
== END 2024-03-18 10:33 | disposition home or self-care (01) ==
LOC: HO.HOS 09:53
PROVIDERS: PCP Internal Medicine
DX: M24.811 Other specific joint derangements of right shoulder, not elsewhere classified (principal); R20.0 Anesthesia of skin; R20.2 Paresthesia of skin
CPT/HCPCS: 99203

== ENCOUNTER 2024-04-30 15:08 | Outpatient (REF) | payer OTHER, SELFPAY ==
--- NOTE | ~2024-04-30 | MR_ITS ---
EXAMINATION: MR SHOULDER WITHOUT CONTRAST, RIGHT CLINICAL INFORMATION: Right shoulder pain. Concern for rotator cuff tendon tear versus impingement versus adhesive capsulitis. COMPARISON: Right shoulder radiographs dated 03/18/2024. TECHNIQUE: MRI of the shoulder without contrast was performed on a high-field scanner. FINDINGS: ROTATOR CUFF: Mild supraspinatus and infraspinatus tendinosis. There is insertional intrasubstance/articular surface partial tearing of the posterior supraspinatus tendon and extending into the junctional fibers measuring approximately 1.7 x 1.7 cm. Bursal surface tendon fibers remaining intact. More posteriorly within the infraspinatus tendon there is an ovoid focus of low T1/T2 signal measuring up to 0.8 cm, consistent calcific tendinitis. No muscle atrophy or fatty infiltration. BICEPS: Intact. CORACOACROMIAL ARCH: The undersurface of the acromion is curved with no subacromial spur. The acromioclavicular joint is normal. Small amount of fluid and edema within the subacromial subdeltoid bursa, consistent with mild bursitis. LABRUM/CAPSULE: No labral tear. Mild thickening and edema of the joint capsule which can be seen in the setting of adhesive capsulitis. GLENOHUMERAL JOINT/MARROW: Intact articular cartilage. No acute osseous injury. Trace glenohumeral joint effusion. MR/MR shoulder RT wo con IMPRESSION: 1. Mild supraspinatus and infraspinatus tendinosis with insertional intrasubstance/articular surface partial tearing of the posterior supraspinatus tendon extending into the junctional fibers measuring 1.7 x 1.7 cm. Bursal surface tendon fibers remaining intact. 2. Infraspinatus calcific tendinitis measuring 0.8 cm. 3. Mild subacromial subdeltoid bursitis. 4. Mild thickening and edema of the joint capsule which can be seen in the setting of adhesive capsulitis. 5. Trace glenohumeral joint effusion. Electronically signed by: Anup Ribeiro MD 05/14/2024 11:55 AM EST
== END 2024-04-30 15:09 | disposition home or self-care (01) ==
LOC: HO.MRI 15:08
PROVIDERS: PCP Internal Medicine
DX: M77.8 Other enthesopathies, not elsewhere classified (principal); M24.811 Other specific joint derangements of right shoulder, not elsewhere classified
CPT/HCPCS: 73221

== ENCOUNTER 2024-05-20 08:41 | Outpatient (AMB) | payer OTHER, SELFPAY ==
--- NOTE | 2024-05-20 08:43 | A.OFFVIS_ITS ---
Vital Signs 05/20/24 08:44 Height 5 ft 10 in Weight 145 lb BMI 20.8 Handedness Left Intake Visit Reasons: MRI review rt shoulder Intake Note: Iman is a 49 year old left hand dominant female who presents today for an MRI review of her right shoulder. Allergies bee pollen Allergy (Severe, Verified 05/20/24 08:45) Anaphylaxis latex Allergy (Severe, Verified 05/20/24 08:45) Hives Sulfa (Sulfonamide Antibiotics) Allergy (Verified 05/20/24 08:45) Chest Pain cefuroxime Adverse Reaction (Verified 05/20/24 08:45) Fever nitrofurantoin Allergy (Severe, Uncoded 05/20/24 08:45) Difficulty Breathing kenyan cheese Allergy (Severe, Uncoded 05/20/24 08:45) Swelling HPI HPI MRI review rt shoulder: Details: Patient is a 49-year-old female who presents for MRI review of her right shoulder. The patient reports that her symptoms have remained consistent since previous evaluation. Patient continues to report significant pain and reduced range of motion of the right shoulder. No other acute complaints or concerns at this time. [facility] Medical History Lateral epicondylitis Pyelonephritis Constipation Renal and ureteric calculus Hematuria due to acute cystitis No known health problems Surgical History Hx of tubal ligation Social History Household Members: Spouse and Children Housing: Condominium Are you a primary hospice care transitions coordinator to a significant other at home: Yes Do you presently have visiting nurse or other home services: No Alcohol intake: current Alcohol intake frequency: holidays/special occasions only Comment: none Patient Tobacco Use Status: Never used Tobacco Tobacco use type: Cigarette service: No Current occupational status: employed Review of Systems Const All systems reviewed & are unremarkable except as noted in HPI and below Physical Exam Vital Signs: BMI result Body Mass Index 20.8 Extrem Other: Right shoulder exam On inspection, there is no visible deformity of the patient's right shoulder No edema, erythema, ecchymosis noted No lacerations, abrasions, open areas No evidence of infection Patient reports diffuse tenderness to palpation right shoulder, worst in the posterior aspect Patient is able to forward flex the shoulder to 90 degrees Patient is only able to externally rotate the right shoulder to approximately 45 degrees, and is unable to be rotated beyond this passively Negative empty can Negative belly press Positive lift-off Positive Ivey Patient does report normal sensation to the tips of all digits of the right hand at this time Patient is able to make a closed fist and extend all digits of the right hand fully and without difficulty Good APB muscle belly firing, good finger cross No evidence of thenar or intrinsic wasting Capillary refill brisk Results Reviewed Results Reviewed: IMPRESSION: 1. Mild supraspinatus and infraspinatus tendinosis with insertional intrasubstance/articular surface partial tearing of the posterior supraspinatus tendon extending into the junctional fibers measuring 1.7 x 1.7 cm. Bursal surface tendon fibers remaining intact. 2. Infraspinatus calcific tendinitis measuring 0.8 cm. 3. Mild subacromial subdeltoid bursitis. 4. Mild thickening and edema of the joint capsule which can be seen in the setting of adhesive capsulitis. 5. Trace glenohumeral joint effusion. Electronically signed by: Anup Ribeiro MD 05/14/2024 11:55 AM EST Assessment & Plan Assessment & Plan (1) Adhesive capsulitis of right shoulder: Code(s): M75.01 - Adhesive capsulitis of right shoulder Category: Medical (2) Traumatic tear of supraspinatus tendon of right shoulder: Code(s): S46.811A - Strain of other muscles, fascia and tendons at shoulder and upper arm level, right arm, initial encounter Category: Medical Plan 1. Adhesive capsulitis of right shoulder 2. Partial supraspinatus tear of right shoulder Patient is educated about these conditions Patient is educated about the treatment options available At this time, patient would like to proceed with physical therapy for adhesive capsulitis and rotator cuff injury, as she would like to avoid surgery if at all possible Patient was also offered a steroid injection for symptomatic management, but does not feel this is necessary at this time Patient will call in a few weeks if she is noticing considerable pain that bothers her for discussion of potential steroid injection Patient is amenable to this plan Patient will follow-up as needed with any acute concerns Coding Level of Care Code Est Pt Level 3 (83509) Diagnoses Adhesive capsulitis of right shoulder M75.01 Traumatic tear of supraspinatus tendon of right shoulder W23.944R
[2024-05-20 08:44] VITALS: BMI 20.8
== END 2024-05-20 09:10 | disposition home or self-care (01) ==
PROVIDERS: PCP Family Medicine
DX: M75.01 Adhesive capsulitis of right shoulder (principal); S46.811A Strain of other muscles, fascia and tendons at shoulder and upper arm level, right arm, initial encounter
CPT/HCPCS: 99213

== ENCOUNTER → 2024-05-20 08:41 | Outpatient (BNVA) | payer OTHER, SELFPAY | PROVIDERS: PCP Family Medicine | DX: S46.811A Strain of other muscles, fascia and tendons at shoulder and upper arm level, right arm, initial encounter (principal); M75.01 Adhesive capsulitis of right shoulder | CPT/HCPCS: 99212 ==

== ENCOUNTER → 2024-08-05 08:32 | Outpatient (BNVA) | DX: R20.0 Anesthesia of skin (principal); R20.2 Paresthesia of skin; S45.811A Laceration of other specified blood vessels at shoulder and upper arm level, right arm, initial encounter | CPT/HCPCS: 99212 ==

== ENCOUNTER → 2024-08-05 08:32 | Outpatient (AMB) ==
--- NOTE | 2024-08-05 08:51 | AM.OFFWIN_ITS ---
Intake Vital Signs 08/05/24 08:52 Height 5 ft 10 in Weight 154 lb BMI 22.1 BP 126/90 H Blood Pressure Location Lt brachial Position Sitting Pulse 71 Pulse Source Pulse Oximeter Pulse Oximetry (%) 97 Oxygen Delivery Method Room Air Intake Visit Reasons: EP RT shoulder pain Intake Note: Patient here for right shoulder and arm pain that has been present for a couple of months and has been diagnosed w/Frozen shoulder and pain has become very severe and needs something to help with pain so that she can sleep and function. Unable to hold mouse or be at a desk all day on computer, issues sleeping,turning, Limited ROM. Patient Tobacco Use Status: Never used Tobacco Allergies bee pollen Allergy (Severe, Verified 08/05/24 08:55) Anaphylaxis latex Allergy (Severe, Verified 08/05/24 08:55) Hives Sulfa (Sulfonamide Antibiotics) Allergy (Verified 08/05/24 08:55) Chest Pain cefuroxime Adverse Reaction (Verified 08/05/24 08:55) Fever nitrofurantoin Allergy (Severe, Uncoded 08/05/24 08:55) Difficulty Breathing cameroonian cheese Allergy (Severe, Uncoded 08/05/24 08:55) Swelling Do you need a note to return to daycare/school/sports/work: Yes HPI HPI Comments History of Present Illness Details History of Present Illness - The patient is a 49 year old female pr esenting with exacerbating right shoulder pain and dysfunction following a pop sensation post-parathyroidectomy last year. - The shoulder tendinosis, confirmed by MRI, has been unaddressed due to lack of follow-up on a physical therapy referral. - She describes progressive numbness and tingling into her right hand, impairing occupational and daily activities. - Concurrent menopause is causing disord ered sleep, night sweats, and fatigue, detrimentally affecting her wellbeing. - Past medical history includes parathyr oid adenoma treated with surgery, resulting in a period of significant hypocalcemia. Physical Exam General: Cooperative, healthy appearing, comfortable, no acute distress and well developed Orientation: Patient oriented x3 Limitations: Limited shoulder movement, unable to lift right arm fully Head: Normal to inspection Ears: Hearing grossly normal bilaterally Nose: Normal external nose present Face and sinus: Normal facial exam Eyes: Appearance normal, both eyes and all related structures Neck: Normal visual inspection and Yes full ROM Respiratory: Normal respiratory effort and able to speak in complete sentences. Skin: No rashes or lesions noted Neuro: Patient oriented x3 Extremities: as below [facility] Medical History Lateral epicondylitis Pyelonephritis Constipation Renal and ureteric calculus Hematuria due to acute cystitis No known health problems Surgical History Hx of tubal ligation Social History Household Members: Spouse and Children Housing: Condominium Are you a primary patient care nursing assistant to a significant other at home: Yes Do you presently have visiting nurse or other home services: No Alcohol intake: current Alcohol intake frequency: holidays/special occasions only Comment: none Patient Tobacco Use Status: Never used Tobacco Tobacco use type: Cigarette service: No Current occupational status: employed Review of Systems Const All systems reviewed & are unremarkable except as noted in HPI and below Physical Exam Vital Signs: Last Vital Signs Pulse 71 08/05/24 08:52 BP 126/90 H 08/05/24 08:52 Pulse Ox 97 08/05/24 08:52 Oxygen Delivery Method Room Air 08/05/24 08:52 BMI result Body Mass Index 22.1 Extrem Right upper extremity: shoulder/upper arm Details: normal to inspection, swelling and abnormal ROM Details: pain with active ROM Details: in ABduction, in extension, in flexion and in internal rotation and pain with passive ROM Details: with ABduction, with extension, with flexion and with internal rotation; no lacerations, no ecchymosis, no crepitus, no penetrating wound, no deformity and no unusual warmth Assessment & Plan Assessment & Plan (1) Numbness and tingling of right hand: Code(s): R20.0 - Anesthesia of skin; R20.2 - Paresthesia of skin Plan: I recommend initiating treatment for shoulder tendinosis with meloxicam 15 mg daily PRN. The patient should hand-deliver the physical therapy referral to the clinic next door to facilitate prompt scheduling. Menopausal symptoms (such as her previous frozen shoulder dx) requiring attention could significantly improve with hormone replacement therapy, pending consultation with a silica dry press helper. Follow-up with primary care and orthopedic specialists is advisable if current management does not yield adequate improvement. Fitted pt for sling. Pt will wear sling for next 3-4 days, wean off as it could make her previous frozen shoulder return and then stay home from work until Thursday. Patient was informed and verbally consented to the use of an ambient scribe for clinic note documentation during this visit. (2) Traumatic tear of supraspinatus tendon of right shoulder: Code(s): S46.811A - Strain of other muscles, fascia and tendons at shoulder and upper arm level, right arm, initial encounter Qualifiers: Encounter type: initial encounter Qualified Code(s): S46.811A - Strain of other muscles, fascia and tendons at shoulder and upper arm level, right arm, initial encounter Plan: as above Medications: New meloxicam 15 mg PO DAILY 14 tabs 0RF Coding Level of Care Code Est Pt Level 4 (02187) Diagnoses Numbness and tingling of right hand R20.0; R20.2 Traumatic rupture of supraspinatus tendon of right shoulder, initial encounter S46.811A Encounter type: initial encounter
== END | disposition home or self-care (01) ==

== ENCOUNTER 2024-08-09 09:15 | Outpatient (REF) | payer OTHER, SELFPAY ==
[2024-08-09 11:16] LABS: Anion Gap 11 (12-20); Blood Urea Nitrogen 10 mg/dL (9-16); Calcium 8.8 mg/dL (8.4-10.2); Carbon Dioxide 29 mmol/L (22-29); Chloride 107 mmol/L (96-108); Estimated Glomerular Filt Rate > 60; Glucose Random 71 mg/dL (60-115); Magnesium 2.1 mg/dL (1.6-2.6); Phosphorus 3.5 mg/dL (2.7-4.5); Potassium 4.1 mmol/L (3.3-5.1); Sodium 143 mmol/L (135-145); Uric Acid 4.3 mg/dL (2.4-5.7)
[2024-08-09 11:21] LABS: Vitamin D 25-OH Total 13.4 ng/mL (>30)
== END 2024-08-09 09:16 | disposition home or self-care (01) ==
LOC: HO.HMGCLDS 09:15
PROVIDERS: PCP Family Medicine; Visit Provider Nurse Practitioner Family
DX: N20.0 Calculus of kidney (principal)
CPT/HCPCS: 36415; 80048; 82306; 83735; 84100; 84550

== ENCOUNTER 2024-08-17 14:59 | Outpatient (REF) | payer OTHER, SELFPAY ==
[2024-08-17 16:38] LABS: Appearance Urine Clear; Color Urine Yellow; Glucose Urine UA Negative (Negative); Leukocyte Esterase Urine Negative (Negative); Nitrite Urine Negative (Negative); Specific Gravity - Urine 1.025 (1.005-1.025); Urine Blood Negative (Negative); Urine Ketones Negative (Negative); Urine Protein Negative (Neg-Trace)
[2024-08-17 17:38] LABS: Bacteria Urine None Seen (None Seen); Hyaline Casts Urine 0-2 /LPF (0-2); Squamous Epithelial Cell Urine 0-2 /HPF (0-2); WBC Urine 0-5 /HPF (0-5)
== END 2024-08-17 15:00 | disposition home or self-care (01) ==
LOC: HO.HMGCLDS 14:59
PROVIDERS: PCP Family Medicine; Visit Provider Nurse Practitioner Family
DX: N39.0 Urinary tract infection, site not specified (principal)
CPT/HCPCS: 81001; 87086

== ENCOUNTER 2024-09-01 14:00 | Outpatient (RCR) | payer OTHER, SELFPAY ==
--- NOTE | 2024-08-09 09:17 | MHC.PT.EP ---
[facility] [place] Office [place] Office [place] Office [address] January Ram [address] [phone] F: [phone] F: [phone] F: [phone] F: [phone] Physical Therapy Plan of Care Date of Evaluation: 08/09/24 Date of Surgery: n/a Diagnosis: joint derangements of R shoulder Assessment: Patient is a 49 year old female presenting to PT with complaints of pain in her R shoulder. Pt reports onset of pain began 2023 due to feeling a pop when rolling over. She presents today with impairments in pain, ROM, shoulder strength, posture, pain with palpation. 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 Pt expresses ad terminal makeup operator goal of reducing pain, and is motivated to work towards this in PT. Clinical presentation today is most consistent with signs and sx associated with R shoulder pain and pt will benefit from skilled PT 2 week x 4 weeks to address the following problems and impairments noted upon evaluation: pain, ROM, shoulder strength, posture, pain with palpation. These problems limit the patient with the following functional activities: reaching, lifting, ADLs, work. The prescribed treatment plan of care is medically necessary. Co-morbidities of none were identified and taken into considerations of plan of care. Pt was educated on HEP, role of PT, prognosis, POC. Frequency and Duration: The patient will be seen 2 x week x 4 weeks Short Term Goals: Pt will demonstrate improved R shoulder ROM by 30 degrees in 2 weeks. Pt will demonstrate improved R shoulder MMT strength by 1/3 grade in 2 weeks. Pt will demonstrate less pain with palpation in 2 weeks. Shorer Goals: Pt will demonstrate improved SPADI score by 13 points in 4 weeks for improved functional mobility. Pt will demonstrate ability to reach with min to no pain in 4 weeks for return to PLOF. Pt will demonstrate ability to lift with min to no pain in 4 weeks for improved tolerance to work. Treatment Plan: Modalities to reduce pain, spasms and effusion. Manual therapy to restore motion and function. Therapeutic exercise to improve strength and flexibility. Neuromuscular re-education for posture and balance. Therapeutic activities to return to functional activities of daily living. Electronically signed by: Tamar Troy, PT, DPT, ATC Please sign and return to therapist. Thank you for your referral.
--- NOTE | 2024-10-04 15:02 | MHC.PT.DC ---
[facility] [place] Office [place] Office [place] Office [address] January Ram [address] [phone] F: [phone] F: [phone] F: [phone] F: [phone] Physical Therapy Discharge Report Diagnosis: joint derangements of R shoulder Date of Surgery: n/a Date of Evaluation: 08/09/24 Date of Discharge: 10/04/24 Treatments to Date: 6 Cancellations to Date: 4 No Shows to Date: 1 Discharge Status: Patient Elected to Stop Recommend MD Follow-up Visit Non-compliance Discharge Summary: Pt no showed and cancelled her last few appointments. As a result she has not attended skilled PT in >30 days and therefore to be d/c. Electronically signed by: Tamar Troy, PT, DPT, ATC Please sign and return to therapist. Thank you for your referral.
== END 2024-10-04 15:02 | disposition home or self-care (01) ==
LOC: HO.PTCHIC 14:00
PROVIDERS: PCP Family Medicine
DX: M24.811 Other specific joint derangements of right shoulder, not elsewhere classified (principal)
CPT/HCPCS: 97110; 97140; 97161

== ENCOUNTER 2024-10-27 13:05 | Outpatient (AMB) | payer OTHER, SELFPAY ==
--- NOTE | 2024-10-27 13:06 | MHC.OFFVIS ---
Intake Visit Reasons: 6m/labs/PVR Intake Note: Patient presents today via telehealth for a 6 month follow-up/Labs Meds- none Allergies to Antibiotic- Sulfonamide, Cefuroxime, Nitrofurantion Blood Thinner- None Colorist Formulator Required: No Allergies bee pollen Allergy (Severe, Verified 10/28/24 00:51) Anaphylaxis latex Allergy (Severe, Verified 10/28/24 00:51) Hives Sulfa (Sulfonamide Antibiotics) Allergy (Verified 10/28/24 00:51) Chest Pain cefuroxime Adverse Reaction (Verified 10/28/24 00:51) Fever nitrofurantoin Allergy (Severe, Uncoded 10/28/24 00:51) Difficulty Breathing martiniquais cheese Allergy (Severe, Uncoded 10/28/24 00:51) Swelling Medication List - Last Reconciled 10/28/24 by TIFFANIE Rose citalopram 1 tab PO BEDTIME epinephrine (EpiPen 2-Malik) 0.3 mg (0.3 mL) IM Q4H PRN HPI Comments Details: Iman is a very pleasant 49-year-old female patient of Dr. Wilson. She has a past medical history of pyelonephritis, constipation, and nephrolithiasis. She is being followed up on today via video telehealth for her longstanding history of nephrolithiasis. In discussion with the patient today she reports noting over the last few weeks she has been experiencing intermittent episodes of bilateral flank pain. She also reports noting infrequent intermittent episodes of dysuria that improve with increase in hydration. We discussed obtaining renal imaging for further assessment evaluation as last imaging was November of last year. She discusses having missed follow-up appointments due to her busy lifestyle. She does have a longstanding history of nephrolithiasis requiring surgical intervention. She also discusses having had a thyroidectomy. She denies urinary urgency, urinary frequency, incontinence, nocturia, hematuria, foul smelling urine, changes to urinary stream, fever, and or chills. She is happy with her current voiding parameters. She otherwise offers no other issues or concerns at this time. [facility] Medical History Lateral epicondylitis Pyelonephritis Constipation Renal and ureteric calculus Hematuria due to acute cystitis No known health problems Surgical History Hx of tubal ligation Social History Household Members: Spouse and Children Housing: Condominium Are you a primary healthcare interpreter to a significant other at home: Yes Do you presently have visiting nurse or other home services: No Alcohol intake: current Alcohol intake frequency: holidays/special occasions only Comment: none Patient Tobacco Use Status: Never used Tobacco Tobacco use type: Cigarette service: No Current occupational status: employed Review of Systems Const Reports as per HPI Eyes Reports no additional complaints ENT Reports no additional complaints Card Reports no additional complaints Resp Reports no additional complaints GI Reports as per HPI Reports as per HPI Musc Reports no additional complaints Neuro Reports no additional complaints Psych Reports no additional complaints Endo Reports as per HPI Yuriy/Lymph Reports no additional complaints Aller/Immun Reports no additional complaints Physical Exam Const General: cooperative Resp Effort & Inspection: able to speak in complete sentences Psych Speech and movement: Clear speech present Attitude: cooperative Thought content: Normal thought content present Insight: Fair insight present (Psych) Judgement: Fair judgement present (Psych) Telehealth Telehealth Telehealth Platform: Telephone Location of provider rendering services: practice address Location of patient: address on file Patient Identification confirmed using: Name, : Yes Telehealth method: voice only Patient verbally consented to treatment: Yes Patient verbally consented to billing insurance company: Yes Patient informed of any privacy concerns related to visit: Yes Minutes spent on Phone/Video with Pt.: 15 Assessment & Plan Assessment & Plan (1) Bilateral kidney stones: Code(s): N20.0 - Calculus of kidney Category: Medical (2) Flank pain: Code(s): R10.9 - Unspecified abdominal pain Category: Medical Plan Will obtain CT KUB for further assessment evaluation. We discussed worsening symptoms. We discussed importance of adequate hydration relation to nephrolithiasis as well as overall health and well-being. We discussed importance of routine/scheduled follow-ups as planned. Follow-up in 1-3 months with imaging to be completed prior; or sooner with any issues, concerns, and or questions. Orders: Orders CT kidney stone 10/27/24 N20.0 - Calculus of kidney Patient Instructions: The patient had an opportunity to ask questions regarding the treatment plan. All questions were answered. Physical exam, labs, and imaging were discussed and reviewed in detail. As well as risks, benefits, and discussion of treatment choices. No major barriers to understanding were identified. The patient expressed understanding and agreement with the above treatment plan. The patient was made aware they should contact our office by phone for worsening of their current condition, the appearance of new symptoms, or with any questions or concerns. Compliance is encouraged with any medications and follow up testing that is ordered. It is a privilege to be allowed the opportunity to participate in? your urological care.? Again, if you have any questions or concerns If you have any questions or concerns please do not hesitate to contact me. The office is [phone]. This note is constructed using voice recognition software. While every effort has been made to ensure accuracy pebble mill operator errors may have been included. Yours sincerely, TIFFANIE Rose Coding Level of Care Code Tele Est Pt Level 3 (66215) Diagnoses Bilateral kidney stones N20.0 Flank pain R10.9
== END 2024-10-27 16:00 | disposition home or self-care (01) ==
LOC: HO.HUSH 13:05
PROVIDERS: PCP Family Medicine; Visit Provider Nurse Practitioner Family
DX: N20.0 Calculus of kidney (principal); R10.9 Unspecified abdominal pain
CPT/HCPCS: 99213

== ENCOUNTER 2024-11-28 08:49 | Outpatient (REF) | payer OTHER, SELFPAY ==
[2024-11-28 13:08] LABS: MANUAL DIFF FLAG NO
[2024-11-28 13:19] LABS: Basophils Absolute Auto 0.1 X10*3/uL (0.0-0.2); Basophils Percent Auto 0.8 % (0-2); Eosinophils Absolute Auto 0.3 X10*3/uL (0.0-0.4); Eosinophils Percent Auto 4.2 % (0-4); Hematocrit 44.1 % (37.0-47.0); Hemoglobin 14.6 g/dl (12.0-16.0); Imm Gran Abs Auto 0.01 X10*3/uL (0.00-0.03); Imm Gran Pct Auto 0.2 % (0.0-0.4); Lymphocytes Absolute Auto 1.9 X10*3/uL (1.2-4.9); Lymphocytes Percent Auto 28.9 % (20-40); Mean Corpuscular HGB Conc 33.1 g/dl (31.0-35.0); Mean Corpuscular Hemoglobin 29.4 pg (27.0-33.0); Mean Corpuscular Volume 88.9 fL (80.0-98.0); Mean Platelet Volume 11.2 fL (9.4-12.3); Monocytes Absolute Auto 0.5 X10*3/uL (0.1-1.2); Monocytes Percent Auto 7.7 % (2-11); Neutrophils Absolute Auto 3.8 x10*3/uL (2.0-8.3); Neutrophils Percent Auto 58.2 % (45-73); Platelet Count 293 X10*3/uL (160-400); Red Blood Count 4.96 X10*6/uL (4.20-5.50); Red Cell Distribution Width 12.5 % (11.0-16.0); White Blood Count 6.5 X10*3/uL (4.8-10.8)
[2024-11-28 13:31] LABS: Calcium 9.2 mg/dL (8.4-10.2)
[2024-11-28 13:46] LABS: Blood Urea Nitrogen 11 mg/dL (9-16); Calcium 9.1 mg/dL (8.4-10.2); Estimated Glomerular Filt Rate > 60
[2024-11-28 13:49] LABS: Parathyroid Hormone Intact 69.3 pg/mL (8.7-77.1)
[2024-11-28 13:59] LABS: Vitamin D 25-OH Total 32.9 ng/mL (>30)
== END 2024-11-28 08:50 | disposition home or self-care (01) ==
LOC: HO.HMGCLDS 08:49
PROVIDERS: PCP Family Medicine; Referring Provider Family Medicine; Visit Provider Nurse Practitioner Family
DX: N20.0 Calculus of kidney (principal); E03.9 Hypothyroidism, unspecified; R53.83 Other fatigue
CPT/HCPCS: 36415; 82306; 82310; 82565; 83970; 84443; 84520; 85025

== ENCOUNTER 2025-01-08 10:28 | Outpatient (REF) | payer OTHER, SELFPAY ==
--- OUTSIDE RECORDS SUMMARY | 2025-01-06 14:30 | XMS_ITS | Encounter Summary ---
Author Organization [facility] Address [address] [place] [address] Care Team Providers Care Park Interpretive Specialist Name Role Phone Physician, No Pcp Primary Care Provider Unavaila ble Encounter Details Date Type Department Care Team (Latest Contact Info) Description 01/06/2025 2:30 PM EDT Clinical Support Walk-In Clinic - [address] [phone] Pre-employment drug screening (Primary Dx) Social History Tobacco Use Types Packs/Day Years Used Date Smoking Tobacco: Never Assessed Comments Unknown Sex and Gender Information Value Date Recorded Sex Assigned at Not on file Legal Sex Female 3:47 AM EST Gender Identity Not on file Sexual Orientation Not on file documented as of this encounter Plan of Treatment Not on file documented as of this encounter Procedures Procedure Name Priority Date/Time Associated Diagnosis Comments POC URINE DRUG SCREEN Routine 01/06/2025 2:33 PM EDT Pre-employment drug screening documented in this encounter Results * POC Urine Drug Screen (01/06/2025 2:33 PM EDT) Amphetamine Screen, Ur POC Negative Negative Benzodiazepines, Ur POC Negative Negative Cocaine, Ur POC Negative Negative Methamphetamine Screen, Ur POC Negative Negative Opiate Scrn, Ur POC Negative Negative THC, Ur POC Negative Negative Temperature, Ur POC 96 Urine Urine specimen obtained by clean catch procedure / Unknown 01/06/2025 2:33 PM EDT Tal Lafleur MD POINT OF CARE TEST ENTER/EDIT OR DERABLES Final Result documented in this encounter Visit Diagnoses Diagnosis Pre-employment drug screening- Primary Health examination of defined subpopulation documented in this encounter Care Teams Park Interpretive Specialist Relationship Specialty Start Date End Date Physician, No Pcp PCP - General 01/06/25 documented as of this encounter
--- NOTE | ~2025-01-08 | MR_ITS ---
CLINICAL HISTORY: MS? MR brain without gadolinium Comparison: None provided Findings: No acute signal abnormalities noted on diffusion-weighted imaging. No acute intracranial fluid collection, hematoma or signal abnormality. Midline structures are intact and within normal limits. Normal flow voids are noted within the vascular structures. Sinuses and mastoids are clear. Impression: No significant abnormalities. This document has been electronically signed by: Todd Henrández MD on 01/09/2025 20:05:09
== END 2025-01-08 10:29 | disposition home or self-care (01) ==
LOC: HO.MRI 10:28
PROVIDERS: Visit Provider Registered Nurse
DX: G37.9 Demyelinating disease of central nervous system, unspecified (principal)
CPT/HCPCS: 70551

== ENCOUNTER → 2025-01-08 10:40 | Outpatient (BNV) | payer OTHER, SELFPAY | PROVIDERS: Visit Provider Radiology Diagnostic Radiology | DX: G35 Multiple sclerosis (principal) | CPT/HCPCS: 70551 ==

== ENCOUNTER 2025-01-21 08:34 | Outpatient (REF) | payer OTHER, SELFPAY ==
--- NOTE | ~2025-01-21 | CT_ITS ---
CLINICAL HISTORY: N20.0 - Calculus of kidney CT abdomen and pelvis without IV or oral contrast Comparison: CT/SR - CT ABDOMEN PELVIS WITHOUT IV CONTRAST RENAL CALCULI - 04/24/23 16:[address]/SR - CT ABDOMEN PELVIS WITHOUT THEN WITH IV CONTRAST - 05/29/22 08:40 EST Findings: Lung bases show no active disease. No dependent layering pleural effusions. The heart is not enlarged. 1 mm nonobstructing caliceal stone upper pole left kidney. No urolithiasis or evidence of obstructive uropathy.Decompressed urinary bladder. Evaluation of the liver, spleen, adrenal glands and pancreas demonstrates no lesions. It should be noted that isodense masses may be obscured in the absence of intravenous contrast. No radiopaque gallstones. Normal appendix. No pathologically enlarged lymph nodes . No ascites demonstrated. Decompressed left hemicolon can not exclude colitis. No vertebral body compression fractures or spondylolisthesis. No bony destructive lesions. Impression: 1. Nephrolithiasis on the left. No urolithiasis or evidence of obstructive uropathy. 2. Decompressed urinary bladder. This document has been electronically signed by: Cory Lee MD on 01/23/2025 15:54:06
== END 2025-01-21 08:35 | disposition home or self-care (01) ==
LOC: HO.CT 08:34
PROVIDERS: PCP Family Medicine; Visit Provider Nurse Practitioner Family
DX: N20.0 Calculus of kidney (principal)
CPT/HCPCS: 74176

== ENCOUNTER → 2025-01-21 08:37 | Outpatient (BNV) | payer OTHER, SELFPAY | PROVIDERS: PCP Family Medicine; Visit Provider Radiology Diagnostic Radiology | DX: N20.0 Calculus of kidney (principal) | CPT/HCPCS: 74176 ==

== ENCOUNTER 2025-01-30 14:31 | Outpatient (AMB) | payer OTHER, SELFPAY ==
--- OUTSIDE RECORDS SUMMARY | 2025-01-30 14:34 | XMS_ITS | Clinical Summary ---
Author Organization [facility] [address] [facility] Address [address] [place] [address] Phone Care Team Providers Care Route Manager Name Role Phone Physician, No Pcp Primary Care Provider Unavaila ble Encounters Date Type Department Care Team Description 01/06/2025 2:30 PM EDT Clinical Support Walk-In Clinic - [address] [phone] Pre-employment drug screening (Primary Dx) from Last 3 Months Social History Tobacco Use Types Packs/Day Years Used Date Smoking Tobacco: Never Assessed Comments Unknown Sex and Gender Information Value Date Recorded Sex Assigned at Not on file Legal Sex Female 3:47 AM EST Gender Identity Not on file Sexual Orientation Not on file Plan of Treatment Health Maintenance Due Date Last Done Comments Breast Cancer Screening 1974 DTaP,Tdap,and Td Vaccines (1 - Tdap) 1993 Hepatitis B Vaccines (1 of 3 - 19+ 3-dose series) 1993 Cervical Cancer Screening: P ap Smear 1995 Pneumococcal Vaccine: 50+ Ye ars (1 of 1 - PCV) 02/13/2024 Zoster Vaccines (1 of 2) 02/13/2024 COVID-19 Vaccine (1 - 2023-2 5 season) 2024 Depression Screening 06/29/2024 Colorectal Cancer Screening: Colonoscopy 01/07/2025 HIV Screening 01/07/2025 Hepatitis C Screening 01/07/2025 Social Influencers of Health Screening 01/07/2025 Influenza Vaccine (#1) 2025 MMR Vaccines Aged Out 12/18/2018 No longer eligi ble based on patient's age to complete this topic HIB Vaccines Aged Out No longer eligi ble based on patient's age to complete this topic HPV Vaccines Aged Out No longer eligi ble based on patient's age to complete this topic Hepatitis A Vaccines Aged Out No long er eligible based on patient's age to complete this topic IPV Vaccines Aged Out No longer eligi ble based on patient's age to complete this topic Meningococcal ACWY Vaccine Aged Out N o longer eligible based on patient's age to complete this topic Meningococcal B Vaccine Aged Out No l onger eligible based on patient's age to complete this topic RSV Immunization Patients Un anitha 20 months Aged Out No longer eligible b ased on patient's age to complete this topic Varicella Vaccines Aged Out No longer eligible based on patient's age to complete this topic Procedures Procedure Name Priority Date/Time Associated Diagnosis Comments POC URINE DRUG SCREEN Routine 01/06/2025 2:33 PM EDT Pre-employment drug screening from Last 3 Months Results * POC Urine Drug Screen (01/06/2025 [...] CARE TEST ENTER/EDIT OR DERABLES Final Result from Last 3 Months Insurance [employer] Care Teams Route Manager Relationship Specialty Start Date End Date Physician, No Pcp PCP - General 01/06/25
--- NOTE | 2025-01-30 14:36 | MHC.OFFVIS ---
Intake Visit Reasons: 3M follow up/ CT/ Labs Intake Note: Patient is present for 3M/CT/LABS Urology Medication:NONE Antibiotic Allergy:SULFA,CEFUROXIME,NITROFURANTOIN Blood Thinner:NONE Emergency Management Coordinator Required: No Allergies bee pollen Allergy (Severe, Verified 01/30/25 15:52) Anaphylaxis latex Allergy (Severe, Verified 01/30/25 15:52) Hives Sulfa (Sulfonamide Antibiotics) Allergy (Verified 01/30/25 15:52) Chest Pain cefuroxime Adverse Reaction (Verified 01/30/25 15:52) Fever nitrofurantoin Allergy (Severe, Uncoded 01/30/25 15:52) Difficulty Breathing chilean cheese Allergy (Severe, Uncoded 01/30/25 15:52) Swelling Medication List - Last Reconciled 01/30/25 by TIFFANIE Rose citalopram 1 tab PO BEDTIME epinephrine (EpiPen 2-Malik) 0.3 mg (0.3 mL) IM Q4H PRN methylphenidate HCl ER (Concerta) 27 mg PO QAM 30 days HPI Comments Details: Iman is a very pleasant 49-year-old female patient of Dr. Wilson. She has a past medical history of pyelonephritis, constipation, and nephrolithiasis. She presents to the office today for follow-up of her longstanding history of nephrolithiasis. In discussion with the patient today she reports to be doing and feeling well. She denies having had any bothersome urinary issues or concerns since her last office visit here. Recent CT KUB results were reviewed with the patient today 01/20 1 mm nonobstructing calyceal stone upper pole of the left kidney. No urolithiasis or evidence of obstructive uropathy. The urinary bladder is decompressed. She reports attempting to drink plenty of water daily however today was very busy with errands and therefore has not really had much water intake. In office urinalysis results reviewed with the patient today. PH 5.5. We did discussed the importance of adequate hydration relation to nephrolithiasis as well as overall health and well-being. We also discussed importance of following up as planned as patient has had multiple missed appointments. She does have a longstanding history of nephrolithiasis requiring previous surgical intervention to include ureteroscopy as well as ESWL. She also has a history of a thyroidectomy she currently denies any bothersome urinary issues or concerns. She denies urinary urgency, urinary frequency, incontinence, nocturia, hematuria, foul smelling urine, changes to urinary stream, fever, and or chills. She is happy with her current voiding parameters. She otherwise offers no other issues or concerns at this time. BUN: 10/18 5, 12/18 16, 03/21 9, 08/22 8, 08/23 10, 12/21 11 Creatinine:10/18 0.64, 12/18 0.76, 03/21 0.74, 08/22 0.71, 08/23 0.67, 12/21 0.78 Uric acid: 08/23 4.3 Calcium: 08/23 8.8, 12/21 9.1 Phosphorus: 08/23 3.5 Magnesium: 08/23 2.1 Vitamin-D: 08/23 13.4, 12/21 32.9 TSH: 12/21 0.50 PTH: 12/21 69.3 PFSH Medical History Lateral epicondylitis Pyelonephritis Constipation Renal and ureteric calculus Hematuria due to acute cystitis No known health problems Surgical History Hx of tubal ligation Social History Household Members: Spouse and Children [facility] Are you 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 a 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 other at home: Yes Do you presently have visiting nurse or other home services: No Alcohol intake: current Alcohol intake frequency: holidays/special occasions only Comment: none Patient Tobacco Use Status: Never used Tobacco Tobacco use type: Cigarette service: No Current occupational status: employed Review of Systems Const Reports as per HPI Eyes Reports no additional complaints ENT Reports no additional complaints Card Reports no additional complaints Resp Reports no additional complaints GI Reports as per HPI Reports as per HPI Musc Reports no additional complaints Neuro Reports no additional complaints Psych Reports no additional complaints Endo Reports as per HPI Yuriy/Lymph Reports no additional complaints Aller/Immun Reports no additional complaints Physical Exam Const General: cooperative, healthy appearing, comfortable, no acute distress, well developed, alert and awake Orientation/consciousness: patient oriented x3 Limitations: no limitations HEENT Head: Yes normal to inspection, Yes normocephalic and Yes atraumatic Ears: hearing grossly normal bilaterally Eyes General: appearance normal, both eyes and all related structures Neck Neck: Yes normal visual inspection and Yes trachea midline Chest Chest palpation & inspection: normal inspection of the chest Resp Effort & Inspection: normal respiratory effort and able to speak in complete sentences Cardio Rate: regular rate GI Inspection: Yes normal to inspection General: Yes no CVA tenderness Back/Spine/Pelvis Back: no CVA tenderness Skin General skin exam: no rashes or lesions noted Neuro General: patient oriented x3 Extrem General: Yes normal to inspection Psych Appearance: grossly normal and well kempt Mental Status: mental status grossly normal Speech and movement: Normal speech and movement present and Clear speech present Affect: normal affect Attitude: cooperative Thought process: Normal thought process present Thought content: Normal thought content present Insight: Fair insight present (Psych) Judgement: Fair judgement present (Psych) Results AMB Urinalysis, Automated UA Leukoctes 0 Blue/uL Last Edit by MELANIE Rogers on 01/30/25 14:56 UA Nitrite Negative Last Edit by MELANIE Rogers on 01/30/25 14:56 UA Urobilinogen 0.2 mg/dL Last Edit by MELANIE Rogers on 01/30/25 14:56 UA Protein 15 mg/dL Last Edit by MELANIE Rogers on 01/30/25 14:56 UA pH 5.5 Last Edit by MELANIE Rogers on 01/30/25 14:56 UA Blood 25 Gab/uL Last Edit by MELANIE Rogers on 01/30/25 14:56 UA Specific [place] 1.025 Last Edit by MELANIE Rogers on 01/30/25 14:56 UA Ketone Negative Last Edit by MELANIE Rogers on 01/30/25 14:56 UA Bilirubin 0 mg/dL Last Edit by MELANIE Rogers on 01/30/25 14:56 UA Glucose 0 mg/dL Last Edit by MELANIE Rogers on 01/30/25 14:56 Results Reviewed Results Reviewed: Laboratory Last Values Urine pH (Auto) 5.5 01/30/25 14:55 Specific [place] (Auto) 1.025 01/30/25 14:55 Urine Protein (Auto) 15 mg/dL 01/30/25 14:55 Glucose (UA)(Auto) 0 mg/dL 01/30/25 14:55 Urine Ketones (Auto) Negative 01/30/25 14:55 Urine Blood (Auto) 25 Gab/uL 01/30/25 14:55 Urine Nitrite (Auto) Negative 01/30/25 14:55 Urine Bilirubin (Auto) 0 mg/dL 01/30/25 14:55 Urine Urobilinogen (Auto) 0.2 mg/dL 01/30/25 14:55 Leukocyte Esterase (Auto) 0 Blue/uL 01/30/25 14:55 Date of Service: 01/21/25 Procedure(s): CT kidney stone Findings: Lung bases show no active disease. No dependent layering pleural effusions. The heart is not enlarged. 1 mm nonobstructing caliceal stone upper pole left kidney. No urolithiasis or evidence of obstructive uropathy.Decompressed urinary bladder. Evaluation of the liver, spleen, adrenal glands and pancreas demonstrates no lesions. It should be noted that isodense masses may be obscured in the absence of intravenous contrast. No radiopaque gallstones. Normal appendix. No pathologically enlarged lymph nodes . No ascites demonstrated. Decompressed left hemicolon can not exclude colitis. No vertebral body compression fractures or spondylolisthesis. No bony destructive lesions. Impression: 1. Nephrolithiasis on the left. No urolithiasis or evidence of obstructive uropathy. 2. Decompressed urinary bladder. Assessment & Plan Assessment & Plan (1) Bilateral kidney stones: Code(s): N20.0 - Calculus of kidney Category: Medical (2) Calculus of proximal right ureter: Code(s): N20.1 - Calculus of ureter Category: Medical (3) Hydronephrosis: Code(s): N13.30 - Unspecified hydronephrosis Category: Medical (4) Recurrent UTI: Code(s): N39.0 - Urinary tract infection, site not specified Category: Medical Plan In office urinalysis results reviewed with the patient today; pH 5.5; we did discussed importance of adequate hydration relation to nephrolithiasis, recurrent urinary tract infections, as well as overall health and well-being. We discussed importance of following up as planned Recent CT KUB results reviewed with the patient today; as noted above. Will continue with surveillance monitoring. She currently denies any bothersome urinary issues or concerns. She reports be happy with current voiding parameters. We discussed adding 1 oz of lemon juice to water daily. All questions were answered. We did discussed further metabolic workup to include Litholink however patient declines at this time. Will obtain renal ultrasound in 6 months. Follow-up in 6 months with imaging to be completed prior; or sooner with any issues, concerns, and or questions. Orders: Orders AMB Urinalysis Automated Today Z13.9 - Encounter for screening, unspecified US renal BI 6 Months N20.0 - Calculus of kidney Patient Instructions: The patient had an opportunity to ask questions regarding the treatment plan. All questions were answered. Physical exam, labs, and imaging were discussed and reviewed in detail. As well as risks, benefits, and discussion of treatment choices. No major barriers to understanding were identified. The patient expressed understanding and agreement with the above treatment plan. The patient was made aware they should contact our office by phone for worsening of their current condition, the appearance of new symptoms, or with any questions or concerns. Compliance is encouraged with any medications and follow up testing that is ordered. It is a privilege to be allowed the opportunity to participate in? your urological care.? Again, if you have any questions or concerns If you have any questions or concerns please do not hesitate to contact me. The office is [phone]. This note is constructed using voice recognition software. While every effort has been made to ensure accuracy core carrier errors may have been included. Yours sincerely, TIFFANIE Rose Coding Level of Care Code Est Pt Level 3 (14045) Complex EM visit Add On G2211 Diagnoses Bilateral kidney stones N20.0 Calculus of proximal right ureter N20.1 Hydronephrosis N13.30 Recurrent UTI N39.0
== END 2025-01-30 15:30 | disposition home or self-care (01) ==
LOC: HO.HUSH 14:32
PROVIDERS: PCP Family Medicine; Visit Provider Nurse Practitioner Family
DX: N20.0 Calculus of kidney (principal); N20.1 Calculus of ureter; N13.30 Unspecified hydronephrosis; N39.0 Urinary tract infection, site not specified; Z13.9 Encounter for screening, unspecified
CPT/HCPCS: 99213

== ENCOUNTER → 2025-01-30 14:31 | Outpatient (BNVA) | payer OTHER, SELFPAY | PROVIDERS: PCP Family Medicine; Visit Provider Nurse Practitioner Family | DX: N20.0 Calculus of kidney (principal); N20.1 Calculus of ureter; N13.30 Unspecified hydronephrosis; N39.0 Urinary tract infection, site not specified | CPT/HCPCS: 81003; 99212 ==